=== PATIENT | female | born 1960 | race Caucasian/White ===

== ENCOUNTER → 2018-04-13 14:27 | Outpatient (CLI) | payer BC, SELFPAY ==
[2017-04-16 12:29] VITALS: BMI 30.7
[2018-04-18 10:06] LABS: HPV Reflexed? NOT INDICATED
--- OUTSIDE RECORDS SUMMARY | 2018-06-08 20:02 | XMS RPT_ITS ---
:1960 Author Organization [place] Care Team Providers Name Role Phone PARSBalwinder, MANSOUR A Attending Unavailable KAY GARNETT Referring Unavailable PARSI, MANSOUR A Referring Unavailable PARSI, MANSOUR A Attending Unavailable PARSI, MANSOUR A Referring Unavailable PARSI, MANSOUR A Admitting Unavailable PARSI, MANSOUR A Attending Unavailable MATHIEU CASTANEDA Attending Unavailable ANITA, MANSOUR A Referring Unavailable MATHIEU CASTANEDA Attending Unavailable MATHIEU CASTANEDA Referring Unavailable MATHIEU CASTANEDA Referring Unavailable ROLA WHELAN Attending Unavailable MATHIEU CASTANEDA Referring Unavailable MATHIEU CASTANEDA Referring Unavailable MATHIEU CASTANEDA Referring Unavailable MATHIEU CASTANEDA Referring Unavailable MATHIEU CASTANEDA Referring Unavailable EL GEETHA, MATHIEU M Admitting Unavailable EL GEETHA, MATHIEU M Attending Unavailable EL GEETHA, MATHIEU M Referring Unavailable KAYA DAVIS, MATHIEU M Attending Unavailable ROSAS WILKERSON Referring Unavailable Rosas Wilkerson Attending Unavailable Rosas Wilkerson Primary Care Unavailable Joseph Beltran Attending Unavailable Rosas Wilkerson Primary Care Unavailable Joseph Beltran Referring Unavailable SHELLIE VENTURA Attending Unavailable SHELLIE VENTURA Referring Unavailable Rosas Wilkerson Primary Care Unavailable SHELLIE VENTURA Consulting Unavailable Joseph Beltran Attending Unavailable Rosas Wilkerson Primary Care Unavailable Rafal Garnett Attending Unavailable PROBLEMS PROBLEMS DATE TYPE CONDITION / CODE ATTENDING STATUS SOURCE 11/01/2017 Active Acquired absence of KAYA DAVIS, Active [facility] stomach (part of) / [facility]ATHIEU [facility] Z90.3(ICD-10) [facility] 10/11/2017 Active Other acute KAYA DAVIS, Active [facility] postprocedural pain [facility]ATH[facility]U [facility] / G89.18(ICD-10) [facility] 09/20/2017 Active Encounter for other NA Active [facility] preprocedural [facility] Main examination / [facility] Z01.818(ICD-10) Repository 06/30/2017 Active Benign neoplasm of NA Active [facility] stomach / Clinic Main D13.1(ICD-10) [facility] 06/02/2017 Unknown R10.9 - Unspecified SHELLIE VENTURA Active [facility] abdominal pain / [facility] R10.9(ICD-10) Hospital Repository 06/02/2017 Unknown K29.70 - Gastritis, SHELLIE VENTURA Active [facility] unspecified, without Community bleeding / Hospital K29.70(ICD-10) Repository 05/20/2017 Admitting Unknown / Hero Garnett [facility] Medical diagnosis UNK(Unknown) [facility] Repository 05/19/2017 Unknown Z12.31 - Encounter Joseph Beltran Active [facility] for screening [facility] mammogram for Hospital malignant neoplasm Repository of breast / Z12.31(ICD-10) 05/04/2017 Unknown K85.90 - Acute Rosas Wilkerson Active [facility] pancreatitis without Community necrosis or Hospital infection, Repository unspecified / K85.90(ICD-10) PROCEDURES PROCEDURES No Procedure Records FoundRESULTS RESULTS PAP IG W/REFLEX HR Collected: 04/13/2018 Status: F Source: [facility] Order Comment: CYTOLOGY INFORMATION: - CLINICAL INFORMATION: POSTMENOPAUSAL - DATE LMP/MENOPAUSE: POST MENOPAUSE MENOPAUSE - COLLECTION VIAL: Thin Prep Vial - TUBER OPERATOR SOURCE: CERVICAL/ENDOCERVICAL - COLLECTION TECHNIQUE: BRUSH/SPATULA Specimen Comment: [id number] Specimen Comment: Source.............Cervix;Endocervix Specimen Comment: Other..............Post Menopausal Specimen Comment: No. of containers..01 ThinPrep Vial TYPE CODE TESTS RESULT OUT OF RANGE REFERENCE UNITS LAB L7400.0800 . Normal DIAGN Comment Result Comment: NEGATIVE FOR INTRAEPITHELIAL LESION AND MALIGNANCY. LAB L7400.0900 . Normal ADEQ Comment Result Comment: Satisfactory for evaluation. Endocervical and/or squamous metaplastic cells (endocervical component) are present. LAB L7400.1400 . Normal PERFORM Comment Result Comment: Siobhan Little, Mold Stamper (ASCP) LAB L7400.2575 . Normal TEST METHOD Comment Result Comment: This liquid based ThinPrep(R) pap test was screened with the use of an image guided system. LAB L7400.2600 . Normal . COMM LAB L7400.2700 . Normal PAPSMR Comment Result Comment: The Pap smear is a screening test designed to aid in the detection of premalignant and malignant conditions of the uterine cervix. It is not a diagnostic procedure and should not be used as the sole means of detecting cervical cancer. Both false-positive and false-negative reports do occur. LAB L7400.2800 . Normal HPV RFLX Comment Result Comment: The HPV DNA reflex criteria were not met with this specimen result therefore, no HPV testing was performed. Performed at: [address] [id number] Aircraft Refueler: Merly Self MD, Phone: [phone] Performed By: #### L7400.0357 #### [facility] (refer to report for specific site) refer to report for address and phone number PROGRESS Observed: 11/07/2017 Status: COMPLETED Source: [place] 9:22 AM [facility] REPOSITORY HNO ID: [id number] Author: Mathieu Davis Service: (none) Author Type: Physician Type: Progress Notes Filed: 11/07/2017 9:23 AM Note Text: Sarcoma Tumor Board Encounter Date of Tumor Board Presentation: 11/07/2017 Tumor Board Review Type: Sarcoma Post-Resection Margin Review Attendance/Disciplines: Orthopedic Surgery, Medical Oncology, Pediatric Oncology , Radiation Oncology, Radiology, Pathology and General Surgery Presenting Physician(s): Mathieu Abbott MD Age: [age] year old Primary Disease Site: Stomach Histology: Benign: Soft Tissue Deep to fascia NEURAL: Schwannoma (Benign Nerve Sheath Tumor) TNM Stage: NA Malignant Sarcoma Tumor Category: NA Margins: R0 (no residual tumor) Care Path Discussion: No Clinical Trial Discussion: No Management Discussion: 57 YO male s/p Laparoscopic partial gastrectomy with primary suture closure 2) Laparoscopic cholecystectomy 3) Intraoperative cholangiogram for stomach submucosal mass; final pathology: stomach schwannoma: nodule measures 0.4 cm from the inked line of resection. No necrosis is identified within the nodule. The nodule also measures 0.5 cm from the stomach mucosa and is not involving the mucosa or surrounding tissue. Plan: No further follow up indicated. Citations: NA This abstract and interpretation of the conversation at tumor board has been completed by Mathieu Davis MD. These are the general management options provided at tumor board conference. The definitive recommendations/discussion will be made by the primary health care team and patient after full discussion as appropriate. Please refer to individual notes by the treating physicians as a final plan of treatment. PROGRESS Observed: 11/01/2017 Status: COMPLETED Source: [place] 2:39 PM [facility] HNO ID: [id number] Author: Mathieu Davis Service: (none) Author Type: Physician Type: Progress Notes Filed: 11/01/2017 2:42 PM Note Text: Attending Note I evaluated the patient and personally participated in the trores components. I agree with the resident's findings and plan as documented and have discussed the case and management of the patient's care with the resident. Signature: Mathieu Davis MD Date: 11/01/2017 Time: 2:40 PM CNOV Observed: 11/01/2017 Status: COMPLETED Source: [place] 11:30 AM [facility] Office Visit (GENSMN) KLAUSSUDHIR ([id number]) 1960 F Date Time Provider Department 11/01/17 11:30 AM MATHIEU CASTANEDA During your visit today, we recorded the following information about you: Temperature Pulse Respiration Blood pressure 97.9 degrees 59/minute 12/minute 126/64 Weight Height 63.5 kg 1.499 m Jose Ramon Clarke 11/01/2017 11:02 AM Signed What is the reason for your visit today? Post op Who is your referring physician? Dr Kaya Davis Are you having poor oral intake? NO Have you had unintentional weight loss of 15 lbs/7 Kg in the last 3-6 months? NO Bowels: regular Wound: clean AND dry Temperature: No Drains: No Arnol Sanders MD 11/01/2017 2:42 PM Signed Surgery Progress note Sudhir Enrique [id number] ASSESSMENT and PLAN: Sudhir Enrique is s/p 1) Laparoscopic partial gastrectomy with primary suture closure 2) Laparoscopic cholecystectomy 3) Intraoperative cholangiogram for stomach submucosal mass -pathology: stomach schwannoma: nodule measures 0.4 cm from the inked line of resection. ?No necrosis is identified within the nodule. The nodule also measures 0.5 cm from the stomach mucosa and is not involving the mucosa or surrounding tissue. -overall doing well, expected post op course -Pain control: no pain -Diet: regular diet -follow up PRN S: INTERVAL HPI and PERTINENT ROS: Doing well. No pain, tolerating GIS diet. Normal BMs. O: BP 126/64 (BP Site: Left Arm, BP Position: Sitting, BP Cuff Size: Regular Adult) Pulse (!) 59 Temp 36.6 ?C (97.9 ?F) (Temporal Artery) Resp 12 Ht 149.9 cm (4' 11) Wt 63.5 kg (140 lb) BMI 28.28 kg/m? Gen: Alert, no NAD CV: RRR Resp: no respiratory distress/increased work of breathing Abdomen: Soft, nondistended, non tender Arnol Sanders MD General Surgery PGY4 Pager: [phone] On weekends, holidays and after hours please page General Surgery foundation relations manager: [phone] Mathieu Davis MD 11/01/2017 2:42 PM Signed Attending Note I evaluated the patient and personally participated in the torres components. I agree with the resident's findings and plan as documented and have discussed the case and management of the patient's care with the resident. Signature: Mathieu Davis MD Date: 11/01/2017 Time: 2:40 PM Referring Provider: ROSAS WILKERSON [[id number]] Allergies As of Date: 11/01/2017 (No Known Allergies) Date Reviewed: 11/01/2017 Reviewed by: Mathieu Davis - Fully Assessed Reason for Visit: Post Op [174] Visit Diagnosis:History of laparoscopic partial gastrectomy [Z90.3] Prescriptions as of 11/01/2017 Sig: OMEPRAZOLE MAGNESIUM 20 MG TA* Take 20 mg by mouth as needed. Problem List As Of Date 11/01/2017 Noted Resolved Abnormal mammogram [R92.8] INVALID FOR* Stomach tumor (benign) [D13.1] INVALID FOR*11/01/2017 Gastric mass [K31.9] INVALID FOR*11/01/2017 History of laparoscopic partial gastrectomy [Z9*INVALID FOR* Visit Notes: >> Jose Ramon Clarke [place] Nov 01, 2017 11:00 AM Status: Signed What is the reason for your visit today? Post op Who is your referring physician? Dr Kaya Davis Are you having poor oral intake? NO Have you had unintentional weight loss of 15 lbs/7 Kg in the last 3-6 months? NO Bowels: regular Wound: clean AND dry Temperature: No Drains: No Disposition: Return if symptoms worsen or fail to improve. Follow-up and Disposition History Recorded Letter Text Mathieu Davis MD [facility] November 01, 2017 RE: Sudhir Enrique TO WHOM IT MAY CONCERN: This is to certify that Sudhir Enrique has been under my care, and may return to work on 11/02/2017 with the following restrictions: no heavy lifting for 1 week. Sincerely yours, Arnol Sanders MD Encounter Status:Closed by MATHIEU CASTANEDA MD on 11/01/17 PROGRESS Observed: 11/01/2017 Status: COMPLETED Source: [place] 11:12 AM [facility] [place] REPOSITORY HNO ID: [id number] Author: Arnol Sanders Service: (none) Author Type: Resident Type: Progress Notes Filed: 11/01/2017 2:42 PM Note Text: Surgery Progress note Sudhir Enrique [id number] ASSESSMENT and PLAN: Sudhir Enrique is s/p 1) Laparoscopic partial gastrectomy with primary suture closure 2) Laparoscopic cholecystectomy 3) Intraoperative cholangiogram for stomach submucosal mass -pathology: stomach schwannoma: nodule measures 0.4 cm from the inked line of resection. ?No necrosis is identified within the nodule. The nodule also measures 0.5 cm from the stomach mucosa and is not involving the mucosa or surrounding tissue. -overall doing well, expected post op course -Pain control: no pain -Diet: regular diet -follow up PRN S: INTERVAL HPI and PERTINENT ROS: Doing well. No pain, tolerating GIS diet. Normal BMs. O: BP 126/64 (BP Site: Left Arm, BP Position: Sitting, BP Cuff Size: Regular Adult) Pulse (!) 59 Temp 36.6 ?C (97.9 ?F) (Temporal Artery) Resp 12 Ht 149.9 cm (4' 11) Wt 63.5 kg (140 lb) BMI 28.28 kg/m? Gen: Alert, no NAD CV: RRR Resp: no respiratory distress/increased work of breathing Abdomen: Soft, nondistended, non tender Arnol Sanders MD General Surgery PGY4 Pager: [phone] On weekends, holidays and after hours please page General Surgery foundation relations manager: [phone] CASE MGT INIT Observed: 10/12/2017 Status: COMPLETED Source: [facility] 2:17 PM [facility] [place] REPOSITORY HNO ID: [id number] Author: Maria Elena Greenberg (Sw) Service: Care Management Author Type: Product Engineer Type: Care Mgt Initial Assessment Filed: 10/12/2017 2:51 PM Note Text: CARE MANAGEMENT: ASSESSMENT AND DISCHARGE PLAN SERVICE DATE: 10/12/2017 SERVICE TIME: 9:45am PRIMARY CARE PHYSICIAN: Rosas Wilkerson MD ADMISSION STATUS: Inpatient 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 No Advance Directive: Health Literacy: 1. How often do you need to have someone help you when you read instructions, pamphlets, or other written material from your doctor or pharmacy? Never - 1 2. How confident are you filling out medical forms by yourself? Extremely - 1 If Patient scores > 3 on either question, the following interventions were put into place: Patient did not score > 3 FUNCTIONAL AND COGNITIVE/BEHAVIORAL PRIOR TO ADMISSION: Baseline Mental Status: Alert AND Oriented, Person, Place , Time and Situation Functional Status: Independent Does Patient Currently Receive Any Community Services or Home Care? None Equipment Prior to Admission: None Has the Patient Been in a Fdc Facility in the Past 30 days? No SOCIAL: Living Arrangement: Home Lives With: Spouse Financial Resources: N/A Primary Contact: Extended Emergency Contact Information Primary Emergency Contact: Andrew Enrique Address: [address] [place], [place] [id number] Mobile Relation: Spouse Supportive: Yes Other Important Patient Contacts: None Caregiver Assessment: Caregiver is ready, willing and able to meet the patient's needs as recommended by the inter-professional team? Yes Patient's transition needs and plan for meeting these needs: follow up appointments Does the patient have an acute stroke diagnosis, or has the patient had a stroke during this admission? No Medication Adherence: I am convinced of the importance of my prescription medication: Agree completely - 0 I worry that my prescription medication will do more harm than good to me Disagree completely - 0 I feel financially burdened by my [id number] expenses for my prescription medication: Disagree completely - 0 Patient is categorized as low risk < 2 Are you interested in bedside delivery of your medications? Yes Food Concerns: In the Last Month, Have You had Trouble Getting Food? No trouble getting food During the Last Month, Have You Worried Whether Your Food Would Run Out Before You Had Enough Money to Buy More? No Is the Patient Psychosocially Complex? No ASSESSMENT AND PLAN: Medical Needs: None Psychosocial Needs: None FREEDOM OF CHOICE EXPLAINED: Yes -discussed POTENTIAL TRANSITION PLANS Home 56 year old female s/p lap partial gastrectomy, cholecystectomy. Per medical team pt to be discharged home today. SIGNATURE: Maria Elena Elise MAMI Greenberg PATIENT NAME: Sudhir Enrique DATE: October 12, 2017 TIME: 2:47 PM PAGER/CONTACT #: [phone] CASE MANAGEM Observed: 10/12/2017 Status: COMPLETED Source: [place] 2:17 PM [facility] HNO ID: [id number] Author: Maria Elena Greenberg (Sw) Service: Care Management Author Type: Product Engineer Type: Care Mgt Progress Note Filed: 10/12/2017 4:13 PM Note Text: CARE MANAGEMENT DISCHARGE NOTE SERVICE DATE: 10/12/2017 SERVICE TIME: 1:00pm LOS: 1 day Admission Date: 10/11/2017 DISCHARGE ARRANGEMENT Home CAREGIVER ASSESSMENT: Caregiver is ready, willing and able to meet the patient's needs as recommended by the inter-professional team? No Caregiver Needed Patient's transition needs and plan for meeting these needs: follow up appointments Does the patient have an acute stroke diagnosis, or has the patient had a stroke during this admission? No HANDOFF COMMUNICATION: Medical Team TRANSPORTATION ARRANGEMENTS: Car -private vehicle Per medical team pt to be discharged today with no skilled needs, Home/Self-Care. SIGNATURE: Maria Elena GreenbergMAMI PATIENT NAME: Sudhir Enrique DATE: October 12, 2017 TIME: 4:11 PM PAGER/CONTACT #: [phone] PROGRESS Observed: 10/12/2017 Status: COMPLETED Source: [place] 11:39 AM [facility] HNO ID: [id number] Author: Maria A Santoyo Service: (none) Author Type: (none) Type: Progress Notes Filed: 10/12/2017 11:39 AM Note Text: Radiology Service Progress Note PATIENT NAME: Sudhir Enrique DATE OF SERVICE: October 12, 2017 TIME: 11:39 AM PATIENT IDENTITY VERIFICATION COMPLETED USING TWO (2) METHODS: Patient confirmed name verbally and Date of . PATIENT GENDER DATA: Female. status: : No status: N/A PATIENT RELEVANT IMPLANT DATA REVIEWED: Yes RADIOLOGY DEPARTMENT: General X-ray: Exam(s) Completed: GI/ Procedure(s): UGI with water soluable and barium contrasts PERIPHERAL IV DATA: Not applicable SIGNED BY: Maria A Santoyo October 12, 2017 11:39 AM XR UPPER GI SINGLE Observed: 10/12/2017 Status: F Source: [place] CONTRAST 11:38 AM [facility] * * *Final Report* * * DATE OF EXAM: Oct 12 2017 11:38AM [id number] [id number] - XR UPPER GI SINGLE CONTRAST / PROCEDURE REASON: Post-op followup * * * * Physician Interpretation * * * * UPPER GI HISTORY: Status post partial gastrectomy, resection of mass along the greater curve of the gastric antrum. COMPARISON: Outside MR 06/02/2017. TECHNIQUE: The patient ingested water-soluble contrast followed by low density barium under intermittent fluoroscopic monitoring. Contrast: ORAL: 50 ml of OMNIPAQUE 350 ORAL: 25 ml of EZPAQUE Fluoroscopy radiation summary: Fluoroscopy time: 2:12 (min:sec). Air kerma: 39.2 mGy. RESULT: Manager Strategic Development: No dilated bowel in the included field of view. Minimal pneumoperitoneum, likely expected postsurgically. Minimal mural irregularity along the greater curvature of the gastric antrum near expected resection site, likely postsurgical. Luminal contrast transits to the proximal jejunum without leak or obstruction. IMPRESSION: NO LEAK OR OBSTRUCTION. Polysomnographic Technologist: PSCB Transcribe Date/Time: Oct 12 2017 11:41A Dictated by : ERIC MCDONALD DO This examination was interpreted and the report reviewed and electronically signed by: ERIC MCDONALD DO on Oct 12 2017 11:49AM EST [id number] CONSULT PROG Observed: 10/12/2017 Status: COMPLETED Source: [place] 9:00 AM [facility] HNO ID: [id number] Author: Christina Bauer Service: Pain Management Author Type: Nurse Practitioner Type: Consult Progress Note Filed: 10/12/2017 11:49 AM Note Text: APMS PLAN OF CARE NOTE Primary Service: Colorectal This patient is S/P laparoscopic partial gastrectomy, primary suture closure, cholecystectomy with IOC whom had a single shot TAP block on DOS for post-operative pain control. She is doing well, has no complaints of pain. Has not needed her current analgesic regimen. APMS asked to reassess pt today. Neurological Status: Alert and oriented x 3 Residual postanesthetic sedation: arousable. Pain Scale: 0 Pain at surgical site? No Pain Character: denies Is patient satisfied with pain control? Yes Post Procedure Neuro examination: Sensory: Consistent with block/epidural:Yes Motor: Consistent with block/epidural: Yes Vital Signs at time of evaluation: BP 109/54 Pulse 61 Temp 36.7 ?C (98.1 ?F) (Oral) Resp 18 Ht 149.9 cm (4' 11.02) Wt 64.4 kg (142 lb) SpO2 99% BMI 28.66 kg/m? Post procedure Nausea/Vomiting absent PLAN: Pt denies any pain or discomfort. Consider adding Tylenol ATC once CMP results (possibly hemozyled). Continue Dilaudid 0.2 mg IV 4 hours PRN The plan was discussed in detail with patient +/- family, bedside RN, APMS staff and primary service, who expressed agreement, understanding and comfort with the plan. APMS will sign off and defer further management to primary team. If pain worsens or difficulties arise please reconsult APMS. Thank you for including us in her care. Name : Christina Bauer APRN.[facility] Acute Pain Service Pager [phone] October 12, 2017 0900 AM CNDS Observed: 10/12/2017 Status: COMPLETED Source: [place] 7:45 AM [facility] HNO ID: [id number] Author: Mathieu Davis Service: General Surgery Author Type: Physician Type: Discharge Summaries Filed: 10/13/2017 7:32 AM Note Text: DISCHARGE SUMMARY PATIENT NAME: Sudhir Enrique ADMISSION DATE: 10/11/2017 DISCHARGE DATE: 10/12/2017 Attending: Mathieu Davis Reason for Hospitalization: Active Problems: Gastric mass Resolved Problems: * No resolved hospital problems. * Operations During Hospitalization: Laparoscopic partial gastrectomy, cholecystectomy Procedures During Hospitalization: No procedures performed Hospital Course: The patient was admitted to the hospital 10/11/17 with a previous known diagnosis of a stomach GIST. Her case was discussed at tumor board and it was decided that her condition be managed operatively. The patient was then transferred to the OR and a laparoscopic partial gastrectomy and cholecystectomy was performed. Patient tolerated the procedure well and was transferred to the regular nursing floor. No complications were encountered. UGI was performed on POD # 1 which did not demonstrate leak or obstruction. Heparin was ordered for prophylaxis of deep vein thrombosis. Diet was advanced to full liquid diet. After toleration of a full liquid diet and adequate pain control, patient was discharged in a stable condition. Labs and Procedures Pending at Discharge: X-Ray Results (UGI) Patient Condition at Discharge: Stable Discharge Disposition: Home/Self Care Discharge Physical Exam: VITAL SIGNS: BP 100/57 Pulse 60 Temp 36.7 ?C (98.1 ?F) (Oral) Resp 16 Ht 149.9 cm (4' 11.02) Wt 64.4 kg (142 lb) SpO2 97% BMI 28.66 kg/m? GENERAL: Alert, no distress, cooperative SKIN: Positive findings: Scar: over surgical site LUNGS: Lungs clear to auscultation, Good diaphragmatic excursion CARDIAC: Normal S1 and S2; no rubs, murmurs, or gallops ABDOMEN: Abdomen soft, non-tender, BS normal, No masses or organomegaly INCISIONS: C/D/I Information Provided to Patient: Patient given copy of Discharge Instructions Discharge Medications:Current Discharge Medication List CONTINUE these medications which have NOT CHANGED Omeprazole Magnesium 20 mg Take 20 mg by mouth as needed. Follow up with Dr. Abbott in 2-3 weeks. SIGNATURE: Buck Victor PA-C PAGER: [phone] DATE: October 12, 2017 TIME: 7:45 AM Mathieu Davis MD PROGRESS Observed: 10/12/2017 Status: COMPLETED Source: [place] 6:12 AM [facility] ID: [id number] Author: Arnol Sanders Service: General Surgery Author Type: Resident Type: Progress Notes Filed: 10/12/2017 6:14 AM Note Text: Surgery Progress note Sudhir Enrique [id number] ASSESSMENT and PLAN: Sudhir Enrique is POD1 s/p lap partial gastrectomy, cholecystectomy -overall doing well, expected post op course -Pain control: adequate on current, transition to Po after swallow study -UGI today -Diet: NPO, to be advanced after UGI -Continue to encourage ambulation, activity, incentive spirometry -SCDs/SQH for DVT prophylaxis -no abx -no june S: INTERVAL HPI and PERTINENT ROS: No acute overnight events. AVSS. Pain controlled, no N/V. UOP adequate. No CP or SOB, fever, chills. O: BP 100/57 Pulse 60 Temp 36.7 ?C (98.1 ?F) (Oral) Resp 16 Ht 149.9 cm (4' 11.02) Wt 64.4 kg (142 lb) SpO2 97% BMI 28.66 kg/m? 10/10 2299 - 10/11 2258 In: 2918 [IV:2918] Out: 455 [Urine:405] Gen: Alert, no NAD CV: RRR Resp: no respiratory distress/increased work of breathing Abdomen: Soft, nondistended, appropriately tender. Incision dry clean intact without erythema, induration or drainage. LABS CBC, Coags, BMP, Mg, Phos Recent Labs 10/11/17 2344 WBC 9.66 HB 12.6 HCT 39.9 PLT 255 NA 140 K 4.6 CHLOR 104 CO2 21* BUN 10 CREAT 0.63 GLUC 138* CA 8.3* MG 1.9 P 3.2 Arnol Sanders MD General Surgery PGY4 Pager: [phone] On weekends, holidays and after hours please page General Surgery foundation relations manager: [phone] CBC AND DIFFERENTIAL Collected: 10/11/2017 Status: F Source: [facility] 11:44 PM [facility] REPOSITORY TYPE CODE TESTS RESULT OUT OF REFERENCE UNITS RANGE LAB WBC 3.70-11.00 k/uL WBC 9.66 LAB RBC 3.90-5.20 m/uL RBC 4.32 LAB HGB 11.5-15.5 g/dL Hemoglobin 12.6 LAB HCT 36.0-46.0 % Hematocrit 39.9 LAB MCV 80.0-100.0 fL MCV 92.4 LAB MCH 26.0-34.0 pG MCH 29.2 LAB MCHC 30.5-36.0 g/dL MCHC 31.6 LAB RDWCV 11.5-15.0 % RDW-CV 14.0 LAB PLTCT 150-400 k/uL Platelet Count 255 LAB MPV 9.0-12.7 fL MPV 9.9 LAB ANEUT % Neut% 89.9 LAB AANEUT 1.45-7.50 k/uL Abs Neut High 8.68 LAB ALYMP % Lymph% 6.4 LAB AALYMP 1.00-4.00 k/uL Low Abs Lymph 0.62 LAB AMONO % [place]% 3.6 LAB AAMONO <0.87 k/uL Abs [place] 0.35 LAB AEOS % Eosin% 0.0 LAB AAEOS <0.46 k/uL Abs Eosin <0.03 LAB ABASO % Baso% 0.1 LAB AABASO <0.11 k/uL Abs Baso <0.03 LAB AUNRBC 0 /100 WBC NRBCs 0.0 LAB ABNRBC <0.01 k/uL Absolute nRBC <0.01 LAB DTYP DTYPE Auto Diff Performed By: #### CBCDIF, CMP, MG1, PHOS #### [facility] [address] [place], [place] [address] COMP METABOLIC PANEL Collected: 10/11/2017 Status: F Source: [place] 11:44 PM [facility] REPOSITORY TYPE CODE TESTS RESULT OUT OF REFERENCE UNITS RANGE LAB TP 6.3-8.0 g/dL Protein, Total 7.3 LAB ALB 3.9-4.9 g/dL Albumin 3.9 LAB CA 8.5-10.2 mg/dL Low Calcium, Total 8.3 LAB TBIL 0.2-1.3 mg/dL Bilirubin, Total 0.5 LAB ALKP 32-117 U/L Alkaline Phosphatase 101 LAB AST 13-35 U/L AST High 140 Result Comment: Results may be falsely increased due to interference by hemolysis. Suggest reorder as clinically indicated. LAB GLU 74-99 mg/dL High Glucose 138 Result Comment: The [place] Diabetes [employer] (ADA) provides guidance for cutoff values for fasting glucose and random glucose. The ADA defines fasting as no caloric intake for at least 8 hours. Fas ting plasma glucose results between 100 to 125 mg/dL indicate increased risk for diabetes (prediabetes). Fasting plasma glucose results greater than or equal to 126 mg/dL meet the criteria for diagnosis of diabetes. In the absence of unequivocal hyperglycemia, results should be confirmed by repeat testing. In a patient with classic symptoms of hyperglycemia or hyperglycemic crisis, random plasma glucose results greater than or equal to 200 mg/dL meet the criteria for diagnosis of diabetes. Reference: Standards of Medical Care in Diabetes 2016, [place] [employer]. Diabetes Care. 2016.39(Suppl 1). LAB BUN 7-21 mg/dL BUN 10 LAB CRET 0.58-0.96 mg/dL Creatinine 0.63 LAB NA 136-144 mmol/L Sodium 140 LAB K 3.7-5.1 mmol/L Potassium 4.6 Result Comment: Results may be falsely increased due to interference by hemolysis. Suggest reorder as clinically indicated. LAB CL 97-105 mmol/L Chloride 104 LAB CO2 22-30 mmol/L Low CO2 21 LAB AGAP 9-18 mmol/L Anion Gap 15 LAB ALT 7-38 U/L ALT High 107 Result Comment: Results may be falsely increased due to interference by hemolysis. Suggest reorder as clinically indicated. LAB GFRAA eGFR- Amer. >60 LAB GFRNAA . eGFR-All Other Races >60 Result Comment: eGFR (Estimated GFR) Units of measure: mL/min/1.73 meters squared eGFR is derived from the reexpressed MDRD Study equation using the following parameters: serum creatinine, age, gender and race. The creatinine assay has been calibrated to be traceable to IDMS. An eGFR <60 mL/min/1.73m2 for >3 months is consistent with chronic kidney disease. Refer to KDOQI guidelines for clinical interpretation. In patients with unstable renal function, e.g. those with acute kidney injury, the eGFR may not accurately reflect actual GFR. Performed By: #### CBCDIF, CMP, MG1, PHOS #### [facility] [address] [place] [address] MAGNESIUM Collected: 10/11/2017 Status: F Source: [place] 11:44 [facility] REPOSITORY TYPE CODE TESTS RESULT OUT OF REFERENCE UNITS RANGE LAB MG 1.7-2.3 mg/dL Magnesium 1.9 Result Comment: Results may be falsely increased due to interference by hemolysis. Suggest reorder as clinically indicated. Performed By: #### CBCDIF, CMP, MG1, PHOS #### [facility] [address] [place] [id number] PHOSPHORUS Collected: 10/11/2017 Status: F Source: [place] 11:44 PM [facility] REPOSITORY TYPE CODE TESTS RESULT OUT OF REFERENCE UNITS RANGE LAB PHOS 2.7-4.8 mg/dL Phosphorus 3.2 Result Comment: Results may be falsely increased due to interference by hemolysis. Suggest reorder as clinically indicated. Performed By: #### CBCDIF, CMP, MG1, PHOS #### [facility] [address] [place], [place] [address] OPERATIVE NO Observed: 10/11/2017 Status: COMPLETED Source: [place] 6:16 PM [facility] REPOSITORY HNO ID: [id number] Author: Mathieu Davis Service: General Surgery Author Type: Physician Type: Operative Report Filed: 10/13/2017 3:40 PM Note Text: [facility] OPERATIVE REPORT NAME: Sudhir Enrique [facility] #: [id number] DATE: 10/11/2017 AGE:[age] year old Incision/Procedure Start Time: 1:39 PM Incision Close/Procedure End Time: 4:18PM Duration of case: 2 hours 37 minutes SURGEON 1: Mathieu Davis MD PARKING PATROLLER 1: Arnol Sanders MD PARKING PATROLLER 2: Morgan Rahman MD OPERATION: 1) Laparoscopic partial gastrectomy with primary suture closure 2) Laparoscopic cholecystectomy 3) Intraoperative cholangiogram ANESTHESIA: General with endotracheal anesthesia PREOPERATIVE DIAGNOSIS: 1. Gastrointestinal stromal tumor of the stomach 2. History of gallstone pancreatitis POSTOPERATIVE DIAGNOSIS: 1. Gastrointestinal stromal tumor of the stomach 2. History of gallstone pancreatitis OPERATIVE INDICATIONS: Sudhir Enrique is a 56 year old female with an incidental GI stromal tumor found in the course of her workup for gallstone pancreatitis. She is otherwise asymptomatic. OPERATIVE FINDINGS: Large exophytic gastric mass along the anterior greater curvature. Evidence of chronic cholecystitis, normal intraoperative cholangiogram. OPERATIVE PROCEDURE: The patient was brought to the operating room and a huddle was performed confirming the appropriate patient, position, operation, antibiotics, allergies and equipment necessary. Anesthesia placed appropriate IV and arterial access and the patient was intubated and general endotracheal anesthesia was induced. SCDs were placed on bilateral calves and the pump turned on. The abdomen was prepped and draped in the usual sterile fashion from xiphoid process to pubic symphysis. A time out was performed which again confirmed the appropriate patient, position, operation, antibiotics, allergies and equipment necessary. Preoperative antibiotics were adminstered within one hour of incision and redosed appropriately. An off midline optiview 5mm port was placed. Pneumoperitoneum was established and 3 additional 5mm trocars and one 12mm trocar were placed. A large gastric exophytic mass was seen on entry to the abdomen. An attempt was made to staple this mass off at the base, however, this would have clearly narrowed the stomach at the level of the incisura and we abandoned a stapled approach. Therefore, we elected to use the ligasure device to core out the gastric mass along its outline including a normal rim of stomach. The lesser sac was entered to expose the posterior surface of the stomach and facilitate removal of the mass. Once removed, the mass was transferred intact into an endocatch bag and removed at the end of the case. There was no spillage. The 7cm gastrotomy was closed transversely with two 3-0 V-lock running sutures. Two imbricating lemberts were placed to invert mucosa at the distal corner of the suture line with 2-0 polysorb sutures. On endoscopy, the scope passed through freely and there was no obstruction. An intraoperative leak test was negative. We turned our attention to the gallbladder. The gallbladder was retracted towards the right upper quadrant. The peritoneum overlying Calot's triangle was carefully dissected using a combination of hook electrocautery and careful blunt dissection. The cystic duct and cystic artery were identified and individually dissected in a plane parallel to the structures. The critical view was achieved. The artery was then divided between clips (1 on the specimen side and 2 on the retained side). The cyst duct was ligated and divided in a similar fashion after a cholangiogram intraoperatively revealed patent CBD and bilateral hepatic ducts without extravasation. The gallbladder was then dissected from the liver bed using hook electrocautery. There was bile spillage inherent to the procedure without clinical significance with minimal blood loss. Hemostasis was achieved. The specimen was placed in an endocatch bag and retrieved. Gallbladder fossa was carefully inspected and did not demonstrate any bile leakage. The gallbladder fossa was irrigated with saline. Ports were removed under direct vision. The 12mm trocar site was closed at the fascial level with 2-0 Maaxon and the skin was closed with 3-0 Biosyn. Sureclose was applied. At the end of the case, all instrument, needle, and sponge counts were correct and the patient was returned to the PACU after being extubated and the june removed. EBL: 50cc SPECIMENS: Specimen ID Type Site Comments Sent To path #1 Tissue gallbladder Pathology Routine path 2 Tissue GIST Pathology Routine COMPLICATIONS: none DRAINS: none Dr. Abbott was present and performed the entirety of the surgery with assistance of Dr. Rahman, who was requested due to lack of qualified residents. Arnol Sanders MD on behalf of MD Mathieu Angelo MD ANES POST Observed: 10/11/2017 Status: COMPLETED Source: [place] 5:43 PM [facility] REPOSITORY HNO ID: [id number] Author: Ketty Tijerina Service: Anesthesiology Author Type: Anesthesiologist Type: Anesthesia PostOp Filed: 10/11/2017 5:44 PM Note Text: POST ANESTHESIA EVALUATION NOTE SERVICE DATE: 10/11/2017 SERVICE TIME: current : 1960 Vitals: 10/11/17 1035 10/11/17 165 Temp: 37.2 ?C (99 ?F) 36.8 ?C (98.2 ?F) 10/11/17165510/11/17 17010/11/17 17110/11/17 1730 BP: 110/56 108/57 107/61 104/65 10/11/17 16510/11/17 17010/11/17 17110/11/17 1730 Pulse: 91 79 74 68 10/11/17 16510/11/17 1705 10/11/17 1715 10/11/17 1730 Resp: 16 16 14 16 10/11/17165510/11/17 17010/11/17 17110/11/17 1730 SpO2: 98% 98% 99% 98% Validated Vital Signs: Yes POST ANES STATUS: No apparent anesthetic complications. The patient is appropriately hydrated with stable respiratory and cardiovascular status. Patient has safe and adequate airway control. The patient has appropriate pain relief and no significant post operative nausea or vomiting. The patient has achieved baseline mental status. Further assessment by Anesthesia Service: None Other Remarks: SIGNATURE: Ketty Tijerina MD PATIENT NAME: Sudhir Enrique DATE: October 11, 2017 TIME: 5:44 PM PAGER/CONTACT #: [phone] BRIEF OP NOT Observed: 10/11/2017 Status: COMPLETED Source: [place] 4:16 PM [facility] RE[facility]IT[facility] HNO ID: [id number] Author: Arnol Sanders Service: General Surgery Author Type: Resident Type: Brief Op Note Filed: 10/11/2017 4:18 PM Note Text: BRIEF OP NOTE LOG ID: [id number] Surgery/Procedure Date: 10/11/2017 Incision/Procedure Start Time: 1:39 PM Incision Close/Procedure End Time: Surgeon(s)/Proceduralist(s) and Sand Screener(s): Surgeon(s) and Role: * Mathieu Davis - Primary * Farida Rahman (Fel) - Fellow * Arnol Sanders - Resident - Assisting Procedure(s): laparoscopic partial gastrectomy, primary suture closure, cholecystectomy with IOC Anesthesia: General Findings: exophytic mass distal greater curvature of the stomach, removed intact Estimated Blood Loss: 50 mls Specimens: Specimen ID Type Site Comments Sent To path #1 Tissue gallbladder Pathology Routine path 2 Tissue GIST Pathology Routine Complications: None Pre-Op/Pre-Procedure Diagnosis: gastric mass Post-Op/Post-Procedure Diagnosis: same SIGNATURE: Arnol Sanders MD PATIENT NAME: Sudhir Enrique DATE: October 11, 2017 TIME: 4:16 PM PAGER/CONTACT #: [phone] CHOLANGIOGRAM INTRAOP Observed: 10/11/2017 Status: F Source: [place] 3:55 PM [facility] RE[facility]ITORY * * *Final Report* * * DATE OF EXAM: Oct 11 2017 3:55PM ESX [id number] - XR CHOLANGIOGRAM INTRAOP / PROCEDURE REASON: CLARISSE * * * * Physician Interpretation * * * * INTRAOPERATIVE CHOLANGIOGRAM HISTORY: Recent cholecystectomy. TECHNIQUE: 2 images are submitted for interpretation. The procedure was performed by the referring surgical service. Fluoroscopy radiation summary: Fluoroscopy time: 0:12 (min:sec). Air kerma: 4.8 mGy. RESULT: See impression. IMPRESSION: Contrast opacifies normal caliber intra-/extrahepatic bile ducts. No stricture or filling defect in the opacified bile ducts. Contrast opacifies the second duodenum. Polysomnographic Technologist: PSCB Transcribe Date/Time: Oct 12 2017 8:12A Dictated by : ERIC MCDONALD DO This examination was interpreted and the report reviewed and electronically signed by: ERIC MCDONALD DO on Oct 12 2017 10:05AM EST [id number] CONFIRM BLOOD TYPE Collected: 10/11/2017 Status: F Source: [place] 1:18 PM [facility] REPOSITORY TYPE CODE TESTS RESULT OUT OF REFERENCE UNITS RANGE LAB %ABR A ABO/RH(D) POSITIVE Performed By: #### CONABO #### [facility] [address] [place], [place] [address] PT ED Observed: 10/11/2017 Status: COMPLETED Source: [place] 10:51 AM [facility] REPOSITORY HNO ID: [id number] Author: Faby (Rn) SHANE Noel Service: Nursing Author Type: Registered Nurse Type: Patient Education Filed: 10/11/2017 10:51 AM Note Text: PRE OP LEARNING ASSESSMENT PROCEDURE/SURGERY: SURGERY: pre-op logistics READINESS TO LEARN COGNITIVE ABILITY: Alert and oriented MOTIVATION TO LEARN: Eager FAMILY SUPPORT: High - Very involved in pt care PATIENT LEARNS BEST BY: Individual Instruction FACTORS AFFECTING LEARNING: None PHYSICAL LIMITATIONS AFFECTING LEARNING: None Electronically Signed By: Faby Noel RN In Department: [place] [address] SURGICAL PATHOLOGY Observed: 10/11/2017 Status: F Source: [place] 12:00 AM [facility] REPOSITORY Specimen originated from [facility] Specimen #: [id number] Submitting Physician: MATHIEU ABBOTT MD FINAL DIAGNOSIS 1. Gallbladder, cholecystectomy (A) - Chronic cholecystitis. - Cholelithiasis. 2. Stomach with Gastrointestinal stromal tumor, excision (B) Segment of stomach with Schwannoma. - Six benign reactive lymph nodes, negative for tumor. - See comment. MALCOM/peter/10/14/17 COMMENT 2. Segment of stomach demonstrates involvement of the muscularis propria and subserosal adipose tissue by a spindle cell proliferation. There is a lymphoid cuff seen in multiple areas surrounding the spindle cell lesion which would favor a schwannoma over a gastrointestinal stroma tumor. Immunohistochemical stains were performed on block B2. The spindle cell proliferation was strongly and diffusely positive for S100 and SOX10 but negative for DOG1, CKit, CD34, and SMA. Laboratory Developed Test (LDT) Disclaimer: Positive and negative controls stain appropriately. Performance characteristics of immunohistochemical, immunofluorescent and chromogenic in-situ hybridization tests have been determined by [facility] [place] ([facility]) in a manner consistent with CLIA requirements. One or more of these tests have not been cleared or approved by the FDA. [facility] is regulated under CLIA as qualified to perform high-complexity testing. These tests are used for clinical purposes. They should not be regarded as investigational or for research. Yayo Riddle M.D., Ph.D. (Electronic Signature) SPECIMEN SUBMITTED A: GALLBLADDER B: GASTROINTESTINAL STROMAL TUMOR CLINICAL DATA GIST GROSS DESCRIPTION A. Received in formalin labeled gallbladder is a gallbladder measuring 4.5 x 2.5 x 1.2 cm. The serosal aspect is conn-loera, smooth and glistening. Perforations are not identified. The lumen contains thick green-brown bile. The wall of the gallbladder averages 0.2 cm in average thickness. Several yellow microcalculi are identified measuring 1 mm in maximum dimensions. There is no calculus impacting the cystic duct. The mucosa is bile stained with longitudinally oriented yellow streaks more prominent on the summit of the mucosal ridges. Electrical Engineering Designer sections are included in one cassette. IP/wlz 10/12/2017 B. Received in formalin labeled GIST is a segment of stomach with adipose tissue and underlying nodule measuring 11.5 x 6.0 x 4.0 cm overall. The elliptical segment of stomach mucosa measures 6.4 x 3.0 cm. The attached adipose tissue measures 5.0 x 4.0 x 1.0 cm. The underlying nodule measures 6.2 x 6.0 x 5.0 cm. The stomach mucosa is loera-brown with normal distribution of regal folds. No lesions are identified on the mucosal surface. The sectioning of the nodule reveals a well-encapsulated, loera-white, rubbery bulging cut surface. The nodule measures 0.4 cm from the inked line of resection. No necrosis is identified within the nodule. The nodule also measures 0.5 cm from the stomach mucosa and is not involving the mucosa or surrounding tissue. Sectioning through the attached fat reveals 9 possible nodules resembling lymph nodes ranging in greatest dimension from 0.1-0.3cm. A photograph of the specimen is taken. Electrical Engineering Designer sections are submitted as follows: B1-B2 nodule with inked line of resection and stomach mucosa, B4-B7 pharmaceutical service representative sections of nodule, B8 six possible lymph nodes, B9 3 possible lymph nodes. GUNSTOCK SPRAY UNIT FEEDER/wlz 10/12/2017 Gross examination performed at [facility], [address] [place] [address] Date of Report: 10/14/2017 Date of Procedure: 10/11/2017 Date of Receipt: 10/11/2017 Submitted by: MATHIEU ABBOTT MD Location: [facility] Diagnostic interpretation performed at [place] [address]. PROGRESS Observed: 09/20/2017 Status: COMPLETED Source: [place] 3:04 PM [facility] RE[facility]IT[facility] HNO ID: [id number] Author: Mathieu Castaneda Service: (none) Author Type: Physician Type: Progress Notes Filed: 09/20/2017 3:07 PM Note Text: This office note has been dictated. Mathieu Davis MD Attending Note I evaluated the patient and personally participated in the torres components. I agree with the resident's findings and plan as documented and have discussed the case and management of the patient's care with the resident. Signature: Mathieu Davis MD Date: 09/20/2017 Time: 3:05 PM PROGRESS Observed: 09/20/2017 Status: COMPLETED Source: [place] 1:58 PM [facility] RE[facility]IT[facility] HNO ID: [id number] Author: Rola Whelan Service: (none) Author Type: Psychologist Type: Progress Notes Filed: 09/20/2017 1:59 PM Note Text: [facility] [place] Name: Sudhir Enrique MR#: [id number] Date: 09/20/17 Time: 3/4 hour Referred by: Dr. Abbott Reason for Referral: address psychological factors as they can affect post-operative recovery. Information relayed back to referral source via electronic medical record Her chart was reviewed and she gave her own history. She was seen with her . She says she is looking forward to getting her surgery over with and has used her tom to cope with the stress of waiting. The basic underlying psychological and physiological mechanisms behind the brain body connection were explained. She was introduced to the concepts and techniques that she can employ to help with pain and healing after surgery. She was given the link to the Behavioral Medicine Program website, instructed on the use of the relaxation recordings, and told of the informational content. She was given the opportunity to ask questions and informed that she could be seen again as an in-patient or in the outpatient clinic. Rola Dunlap, Ph.D. CBC AND DIFFERENTIAL Collected: 09/20/2017 Status: F Source: [place] 10:59 AM [facility] REPOSITORY TYPE CODE TESTS RESULT OUT OF REFERENCE UNITS RANGE LAB WBC 3.70-11.00 k/uL WBC 5.88 LAB RBC 3.90-5.20 m/uL RBC 4.90 LAB HGB 11.5-15.5 g/dL Hemoglobin 14.2 LAB HCT 36.0-46.0 % Hematocrit 44.9 LAB MCV 80.0-100.0 fL MCV 91.6 LAB MCH 26.0-34.0 pG MCH 29.0 LAB MCHC 30.5-36.0 g/dL MCHC 31.6 LAB RDWCV 11.5-15.0 % RDW-CV 13.7 LAB PLTCT 150-400 k/uL Platelet High Count 404 LAB MPV 9.0-12.7 fL MPV 9.8 LAB ANEUT % Neut% 59.3 LAB AANEUT 1.45-7.50 k/uL Abs Neut 3.48 LAB ALYMP % Lymph% 30.1 LAB AALYMP 1.00-4.00 k/uL Abs Lymph 1.77 LAB AMONO % [place]% 8.0 LAB AAMONO <0.87 k/uL Abs [place] 0.47 LAB AEOS % Eosin% 1.4 LAB AAEOS <0.46 k/uL Abs Eosin 0.08 LAB ABASO % Baso% 1.2 LAB AABASO <0.11 k/uL Abs Baso 0.07 LAB AUNRBC 0 /100 WBC NRBCs 0.0 LAB ABNRBC <0.01 k/uL Absolute nRBC <0.01 LAB DTYP DTYPE Auto Diff Performed By: #### CBCDIF, CMP #### [facility] [address] [place] [id number] COMP METABOLIC PANEL Collected: 09/20/2017 Status: F Source: [place] 10:59 AM [facility] REPOSITORY TYPE CODE TESTS RESULT OUT OF REFERENCE UNITS RANGE LAB TP 6.3-8.0 g/dL Protein, High Total 8.1 LAB ALB 3.9-4.9 g/dL Albumin 4.5 LAB CA 8.5-10.2 mg/dL Calcium, Total 9.8 LAB TBIL 0.2-1.3 mg/dL Bilirubin, Total 0.4 LAB ALKP 32-117 U/L Alkaline Phosphatase 113 LAB AST 13-35 U/L AST 23 LAB GLU 74-99 mg/dL Glucose 98 Result Comment: The [place] Diabetes [employer] (ADA) provides guidance for cutoff values for fasting glucose and random glucose. The ADA defines fasting as no caloric intake for at least 8 hours. Fas ting plasma glucose results between 100 to 125 mg/dL indicate increased risk for diabetes (prediabetes). Fasting plasma glucose results greater than or equal to 126 mg/dL meet the criteria for diagnosis of diabetes. In the absence of unequivocal hyperglycemia, results should be confirmed by repeat testing. In a patient with classic symptoms of hyperglycemia or hyperglycemic crisis, random plasma glucose results greater than or equal to 200 mg/dL meet the criteria for diagnosis of diabetes. Reference: Standards of Medical Care in Diabetes 2016, [place] [employer]. Diabetes Care. 2016.39(Suppl 1). LAB BUN 7-21 mg/dL BUN 18 LAB CRET 0.58-0.96 mg/dL Creatinine 0.76 LAB NA 136-144 mmol/L Sodium 141 LAB K 3.7-5.1 mmol/L Potassium 4.2 LAB CL 97-105 mmol/L Chloride 102 LAB CO2 22-30 mmol/L CO2 29 LAB AGAP 9-18 mmol/L Anion Gap 10 LAB ALT 7-38 U/L ALT 27 LAB GFRAA eGFR- Amer. >60 LAB GFRNAA . eGFR-All Other Races >60 Result Comment: eGFR (Estimated GFR) Units of measure: mL/min/1.73 meters squared eGFR is derived from the reexpressed MDRD Study equation using the following parameters: serum creatinine, age, gender and race. The creatinine assay has been calibrated to be traceable to IDDC. An eGFR <60 mL/min/1.73m2 for >3 months is consistent with chronic kidney disease. Refer to KDOQI guidelines for clinical interpretation. In patients with unstable renal function, e.g. those with acute kidney injury, the eGFR may not accurately reflect actual GFR. Performed By: #### CBCDIF, CMP #### [facility] [address] [place], [place] [address] TYPE AND SCR (30D) Collected: 09/20/2017 Status: F Source: [place] 10:59 AM [facility] TYPE CODE TESTS RESULT OUT OF REFERENCE UNITS RANGE LAB %ABR A ABO/RH(D) POSITIVE LAB % Antibody NEG Screen Performed By: #### [id number] #### [facility] [address] [place], [place] [address] XR CHEST 2V FRONTAL/LAT Observed: 09/20/2017 Status: F Source: [place] 10:44 AM [facility] * * *Final Report* * * DATE OF EXAM: Sep 20 2017 10:44AM AOX [id number] - XR CHEST 2V FRONTAL/LAT / PROCEDURE REASON: Encounter for other preprocedural examination * * * * Physician Interpretation * * * * EXAMINATION: CHEST RADIOGRAPH (2 VIEW FRONTAL and LATERAL) Clinical History: Encounter for other preprocedural examination MQ: XC2_5 Comparison: None RESULT: Lines, tubes, and devices: None. Lungs and pleura: There is somewhat low lung volume with mild atelectatic changes along the medial aspect of the bases. Prominence of the lung markings in the perihilar and basilar regions is likely secondary to crowded vessels, given the low lung volume. This could limit the evaluation for subtle interstitial or bronchial abnormalities, especially in the medial aspect of the bases. No pleural effusion or pneumothorax.. Cardiomediastinal silhouette: Heart is within normal. Thoracic aorta is mildly tortuous. Other: . IMPRESSION: As above Polysomnographic Technologist: CHRIS Transcribe Date/Time: Sep 20 2017 6:35P Dictated by : MAT MORRIS MD This examination was interpreted and the report reviewed and electronically signed by: MAT MORRIS MD on Sep 20 2017 6:35PM EST [id number] CNOV Observed: 09/20/2017 Status: COMPLETED Source: [place] 10:00 AM [facility] Office Visit ([facility]) SUDHIR ENRIQUE ([id number]) 1960 F Date Time Provider Department 09/20/17 10:00 AM ROLA WHELAN During your visit today, we recorded the following information about you: Rola Whelan 09/20/2017 1:59 PM Signed [facility] [place] Name: Sudhir Enrique MR#: [id number] Date: 09/20/17 Time: 3/4 hour Referred by: Dr. Abbott Reason for Referral: address psychological factors as they can affect post-operative recovery. Information relayed back to referral source via electronic medical record Her chart was reviewed and she gave her own history. She was seen with her . She says she is looking forward to getting her surgery over with and has used her tom to cope with the stress of waiting. The basic underlying psychological and physiological mechanisms behind the brain body connection were explained. She was introduced to the concepts and techniques that she can employ to help with pain and healing after surgery. She was given the link to the Behavioral Medicine Program website, instructed on the use of the relaxation recordings, and told of the informational content. She was given the opportunity to ask questions and informed that she could be seen again as an in-patient or in the outpatient clinic. Rola Dunlap, Ph.D. 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] INVALID FOR* Encounter Status:Closed by ROLA WHELAN PHD on 09/20/17 HISTORY PHYSICAL Observed: 09/20/2017 Status: COMPLETED Source: [place] 9:01 AM [facility] [place] REPOSITORY HNO ID: [id number] Author: Eric Franco (Res) Service: (none) Author Type: Resident Type: HANDP Filed: 09/20/2017 9:05 AM Note Text: HISTORY AND PHYSICAL EXAMINATION SERVICE DATE: 09/20/2017 SERVICE TIME: 9:02 AM PRIMARY CARE PHYSICIAN: Rosas Wilkerson REASON FOR VISIT Sudhir Enrique is a 56 year old female who is being seen for pre op visit The patient has the following: ACTIVE PROBLEM LIST Abnormal Mammogram Stomach Tumor (Benign) SUBJECTIVE: 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 No pain. No vomiting. No bloody BMs/melena. FUNCTIONAL STATUS: Run a short distance (8.00 METs) PAST MEDICAL HISTORY Diagnosis Date - History of esophagogastroduodenoscopy (EGD) 05/20/2017 - History of MRI 06/02/2017 abdominal MRI - NEGATIVE MEDICAL HISTORY - Pancreatitis 04/2017 attributed to gallstones PAST SURGICAL HISTORY Procedure Laterality Date - NONE FAMILY HISTORY Problem Relation Age of Onset - Breast Cancer Mother - Heart Maternal Grandfather - Heart Paternal Grandmother - Stroke Father SOCIAL HISTORY: Social History Substance Use Topics - Smoking status: Never Smoker - Smokeless tobacco: Never Used - Alcohol use No MEDICATIONS Prior to Admission medications as of 09/20/17 0901 Medication Sig Last Dose Taking Omeprazole Magnesium (PRILOSEC OTC) 20 mg tablet Take 20 mg by mouth as needed. Yes No medication comments found. CURRENT ALLERGIES ALLERGIES No Known Allergies REVIEW OF SYSTEMS PAIN ASSESSMENT: General: No weight loss, malaise or fevers. Neuro: negative Respiratory: No history of current cough or dyspnea, or pneumonia in the past 6 weeks. No history of respiratory/pulmonary symptoms or problems Cardiovascular: No history of HTN requiring medication, no history of angina, CHF, SC, cardiac surgery or stents. Denies rest pain, gangrene or revascularization/amputation for PVD. No history of cardiovascular symptoms or problems. GI: See HPI : No history of UTI in past 6 weeks. No history of renal failure. Not currently on or requiring dialysis. No history of symptoms or problems. 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 Has not taken steroids within the past 30 days. No history of endocrinological symptoms or problems. Hematology: No history of bleeding or clotting disorder. Pt is not taking anti-coagulation or platelet medications. No history of hematological symptoms or problems. Oncology: No history of CA metastasis, chemo within 30 days, or radiotherapy within 90 days. Has not lost 10% of body wt in 6 months. No history of oncological symptoms or problems. Psych: No history of psychiatric symptoms or problems. PHYSICAL EXAM BP 124/72 Pulse 60 Temp (Src) 98.2 (Temporal Artery) Resp 18 Ht 4' 11 (1.50m) Wt 142 lb (64.4kg) BMI 28.67 kg/(m2). General: Alert and oriented Cardiovascular: Normal S1 AND S2, no rubs, murmurs or gallops. No JVD. Pulse regular. Lungs: Normal breath sounds, no wheezes or crackles. Abdomen: Soft, non-tender, no rigidity. Extremities: No deformity, no edema or tenderness, no joint swelling or clubbing. Neurological: Normal cognition and motor skills. Diagnostic tests reviewed for today's visit: Most recent labs Most recent imaging ASSESSMENT 56yo female with incidentally diagnosed gastric GIST and Hx gallstone pancreatitis There is no known pertinent medical condition which may affect valerie-operative course PLAN: Lap GIST excision and lap clarisse + IOC Pre-op labs Consented Eric Franco MD CNOV Observed: 09/20/2017 Status: COMPLETED Source: [place] 8:30 AM [facility] SUDHIR ENRIQUE ([id number]) 1960 F Date Time Provider Department 09/20/17 8:30 AM MATHIEU CASTANEDA During your visit today, we recorded the following information about you: Temperature Pulse Respiration Blood pressure 98.2 degrees 60/minute 18/minute 124/72 Weight Height 64.4 kg 1.499 m Marlon Wilder ([place]), [place] 09/20/2017 8:25 AM Signed What is the reason for your visit today? Pre op Who is your referring physician? Dr kaya davis Are you having poor oral intake? NO Have you had unintentional weight loss of 15 lbs/7 Kg in the last 3-6 months? 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 No pain. No vomiting. No bloody BMs/melena. FUNCTIONAL STATUS: Run a short distance (8.00 METs) PAST MEDICAL HISTORY Diagnosis Date - History of esophagogastroduodenoscopy (EGD) 05/20/2017 - History of MRI 06/02/2017 abdominal MRI - NEGATIVE MEDICAL HISTORY - Pancreatitis 04/2017 attributed to gallstones PAST SURGICAL HISTORY Procedure Laterality Date - NONE FAMILY HISTORY Problem Relation Age of Onset - Breast Cancer Mother - Heart Maternal Grandfather - Heart Paternal Grandmother - Stroke Father SOCIAL HISTORY: Social History Substance Use Topics - Smoking status: Never Smoker - Smokeless tobacco: Never Used - Alcohol use No MEDICATIONS Prior to Admission medications as of 09/20/17 0901 Medication Sig Last Dose Taking Omeprazole Magnesium (PRILOSEC OTC) 20 mg tablet Take 20 mg by mouth as needed. Yes No medication comments found. CURRENT ALLERGIES ALLERGIES No Known Allergies REVIEW OF SYSTEMS PAIN ASSESSMENT: General: No weight loss, malaise or fevers. Neuro: negative Respiratory: No history of current cough or dyspnea, or pneumonia in the past 6 weeks. No history of respiratory/pulmonary symptoms or problems Cardiovascular: No history of HTN requiring medication, no history of angina, CHF, SC, cardiac surgery or stents. Denies rest pain, gangrene or revascularization/amputation for PVD. No history of cardiovascular symptoms or problems. GI: See HPI : No history of UTI in past 6 weeks. No history of renal failure. Not currently on or requiring dialysis. No history of symptoms or problems. 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 Has not taken steroids within the past 30 days. No history of endocrinological symptoms or problems. Hematology: No history of bleeding or clotting disorder. Pt is not taking anti-coagulation or platelet medications. No history of hematological symptoms or problems. Oncology: No history of CA metastasis, chemo within 30 days, or radiotherapy within 90 days. Has not lost 10% of body wt in 6 months. No history of oncological symptoms or problems. Psych: No history of psychiatric symptoms or problems. PHYSICAL EXAM BP 124/72 Pulse 60 Temp (Src) 98.2 (Temporal Artery) Resp 18 Ht 4' 11 (1.50m) Wt 142 lb (64.4kg) BMI 28.67 kg/(m2). General: Alert and oriented Cardiovascular: Normal S1 AND S2, no rubs, murmurs or gallops. No JVD. Pulse regular. Lungs: Normal breath sounds, no wheezes or crackles. Abdomen: Soft, non-tender, no rigidity. Extremities: No deformity, no edema or tenderness, no joint swelling or clubbing. Neurological: Normal cognition and motor skills. Diagnostic tests reviewed for today's visit: Most recent labs Most recent imaging ASSESSMENT 56yo female with incidentally diagnosed gastric GIST and Hx gallstone pancreatitis There is no known pertinent medical condition which may affect valerie-operative course PLAN: Lap GIST excision and lap clarsise + IOC Pre-op labs Consented MD Kaya Tapia Kevin M 09/20/2017 3:07 PM Signed This office note has been dictated. Mathieu Davis MD Attending Note I evaluated the patient and personally participated in the torres components. I agree with the resident's findings and plan as documented and have discussed the case and management of the patient's care with the resident. 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] INVALID FOR* Visit Notes: >> Marlon Wilder ([place] September 20, 2017 8:24 AM Status: Signed What is the reason for your visit today? Pre op Who is your referring physician? Dr kaya davis Are you having poor oral intake? NO Have you had unintentional weight loss of 15 lbs/7 Kg in the last 3-6 months? NO Bowels: regular Wound: clean AND dry Temperature: no Drains: No Disposition: Return in about 4 weeks (around 10/18/2017). Follow-up and Disposition History Recorded Encounter Status:Closed by MATHIEU CASTANEDA MD on 09/20/17 PROGRESS Observed: 09/20/2017 Status: COMPLETED Source: [place] 12:00 AM [facility] REPOSITORY HNO ID: [id number] Author: Mathieu Castaneda Service: General Surgery Author Type: Physician Type: Progress Notes Filed: 09/26/2017 3:21 PM Note Text: [facility] Department of General Surgery [facility] [place] Mathieu Abbott M.D. Surgical Endoscopy Advanced Laparoscopic and General Surgery [address] [place] [address] NAME: SUDHIR ENRIQUE [facility] NO: [id number] DATE OF SERVICE: 09/20/2017 FOLLOWUP VISIT HISTORY OF PRESENT ILLNESS: Since her last visit, Ms. Enrique's case was discussed at our [facility] Tumor [facility]. The plan was recommended to proceed with upfront resection for this clinically resectable presumed GI stromal tumor of the stomach. She has had no further updates in her health since her last visit. Of note, the patient does have a history of acute gallstone pancreatitis and has a gallbladder still in place. PHYSICAL EXAMINATION: She is afebrile with normal vital signs. Her weight is 64 kg and height is 1.54 meters, corresponding to a body mass index of 28.67. Her abdomen is soft, nontender and nondistended. IMPRESSION: A 56-year-old female with incidental GI stromal tumor and history of gallstone pancreatitis. RECOMMENDATION: We will proceed with laparoscopic GI stromal tumor with excision with laparoscopic cholecystectomy and intraoperative cholangiogram. She was consented today and all questions answered to the best of our ability. CARE COORDINATION: The majority of this visit was spent counseling regarding medical versus surgical management. Svtb-xv-ekub time was 15 minutes. MATHIEU ABBOTT M.D. KE/089 Audio #: [id number] cc: Anita Sosa MD [address] [place] [address] via [employer] Date Dictated: 09/20/2017 13:51:51 Date Typed: 09/26/2017 09:36:48 Date Revised:09/26/2017 3:20 PM HOSP Observed: 08/25/2017 Status: COMPLETED Source: [place] 12:00 AM [facility] Patient Update ([facility]) SUDHIR ENRIQUE ([id number]) 1960 F Date Time Provider Department 08/25/17 MATHIEU CASTANEDA During your visit today, we recorded the following information about you: Allergies As of Date: 08/25/2017 (No Known Allergies) Date Reviewed: 08/16/2017 Reviewed by: Mathieu Davis - Fully Assessed Reason for Visit: CURE 10/11/2017 [Other] Primary Visit Diagnosis:Preoperative examination [Z01.818] Order(s):SURGICAL REQUEST - ELECTIVE [[id number]] Order #: [id number]: 1 CONSULT TO [facility] [[id number]] Order #: [id number]: 1 TYPE + SCREEN,30 DAY [QXROWP21] Order #: [id number] FUTURE CBC + DIFF [SQCBCDIF] Order #: [id number] FUTURE COMP METABOLIC PANEL [SQCMP] Order #: [id number] FUTURE XR CHEST 2V FRONTAL/LAT [[id number]] Order #: [id number] FUTURE ECG COMPLETE W INTERPRETATION [ECG01] Order #: [id number] FUTURE HANDP FOR SURGERY [[id number]] Order #: [id number] CONSULT TO PATIENT EDUCATION [[id number]] Order #: [id number]: 1 REFER FOR ADMIT INTERVIEW [] Order #: [id number] ALESSANDRA WHAT TO EXPECT DURING YOUR HOSPITAL STAY [] Order #: [id number]. #:[id number]: 1 ALESSANDRA PT ED ANESTHESIA [[id number]] Order #: [id number]. #:[id number]: 1 ALESSANDRA PT ED GENERAL SURG [[id number]] Order #: [id number]. #:[id number]: 1 ALESSANDRA PT ED MISC [] Order #: [id number]. #:[id number]: 1 Prescriptions as of 08/25/2017 Sig: OMEPRAZOLE MAGNESIUM 20 MG TA* Take 20 mg by mouth as needed. Problem List As Of Date 08/25/2017 Noted Resolved Abnormal mammogram [R92.8] INVALID FOR* Stomach tumor (benign) [D13.1] INVALID FOR* Follow-up and Disposition History Recorded Encounter Status:Closed by QUE SANTOS on 08/25/17 HOSP Observed: 08/25/2017 Status: COMPLETED Source: [place] 12:00 AM [facility] REPOS[facility]ORY Patient:Sudhir Enrique MRN: <[id number]> Height:4' 11(1.499 m) Weight:142 lb (64.411 kg) Outpatient Medications as of 10/11/17: Omeprazole Magnesium (PRILOSEC OTC) 20 mg tablet Admission/Clinic Administered Medications as of 10/11/17: heparin 5,000 Units injection Problem List: Abnormal mammogram [R92.8] Stomach tumor (benign) [D13.1] Allergies: No Known Allergies Date Verified:10/11/17 Lab Values Lab Value Units Date High Low POTA* 4.2 mmol/L 09/20/2017 5.1 3.7 VIANCA* 44.9 % 09/20/2017 46.0 36.0 Progress Notes ([facility]): Rola Dunlap, PHD 09/20/2017 1:59 PM Signed [facility] [place] Name: Sudhir Enrique MR#: [id number] Date: 09/20/17 Time: 3/4 hour Referred by: Dr. Abbott Reason for Referral: address psychological factors as they can affect post-operative recovery. Information relayed back to referral source via electronic medical record Her chart was reviewed and she gave her own history. She was seen with her . She says she is looking forward to getting her surgery over with and has used her tom to cope with the stress of waiting. The basic underlying psychological and physiological mechanisms behind the brain body connection were explained. She was introduced to the concepts and techniques that she can employ to help with pain and healing after surgery. She was given the link to the Behavioral Medicine Program website, instructed on the use of the relaxation recordings, and told of the informational content. She was given the opportunity to ask questions and informed that she could be seen again as an in-patient or in the outpatient clinic. Rola Dunlap, Ph.D. Progress Notes ([facility]): Mathieu Davis MD 09/26/2017 3:21 PM Signed [facility] Department of General Surgery [facility] [place] Mathieu Abbott M.D. Surgical Endoscopy Advanced Laparoscopic and General Surgery [address] [place] [address] NAME: SUDHIR ENRIQUE [facility] NO: [id number] DATE OF SERVICE: 09/20/2017 FOLLOWUP VISIT HISTORY OF PRESENT ILLNESS: Since her last visit, Ms. Enrique's case was discussed at our [facility] Tumor Board. The plan was recommended to proceed with upfront resection for this clinically resectable presumed GI stromal tumor of the stomach. She has had no further updates in her health since her last visit. Of note, the patient does have a history of acute gallstone pancreatitis and has a gallbladder still in place. PHYSICAL EXAMINATION: She is afebrile with normal vital signs. Her weight is 64 kg and height is 1.54 meters, corresponding to a body mass index of 28.67. Her abdomen is soft, nontender and nondistended. IMPRESSION: A 56-year-old female with incidental GI stromal tumor and history of gallstone pancreatitis. RECOMMENDATION: We will proceed with laparoscopic GI stromal tumor with excision with laparoscopic cholecystectomy and intraoperative cholangiogram. She was consented today and all questions answered to the best of our ability. CARE COORDINATION: The majority of this visit was spent counseling regarding medical versus surgical management. Hrja-xr-wdej time was 15 minutes. MATHIEU ABBOTT M.D. KE/089 Audio #: [id number] cc: Anita Sosa MD [address] [place] [address] via [employer] Date Dictated: 09/20/2017 13:51:51 Date Typed: 09/26/2017 09:36:48 Date Revised:09/26/2017 3:20 PM Previous Version Marlon [place] MA, [place] 09/20/2017 8:25 AM Signed What is the reason for your visit today? Pre op Who is your referring physician? Dr kaya davis Are you having poor oral intake? NO Have you had unintentional weight loss of 15 lbs/7 Kg in the last 3-6 months? NO Bowels: regular Wound: clean AND dry Temperature: no Drains: No Eric Franco MD 09/20/2017 9:05 AM Signed HISTORY AND PHYSICAL EXAMINATION SERVICE DATE: 09/20/2017 SERVICE TIME: 9:02 AM PRIMARY CARE PHYSICIAN: Rosas Wilkerson REASON FOR VISIT Sudhir Enrique is a 56 year old female who is being seen for pre op visit The patient has the following: ACTIVE PROBLEM LIST Abnormal Mammogram Stomach Tumor (Benign) SUBJECTIVE: 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 No pain. No vomiting. No bloody BMs/melena. FUNCTIONAL STATUS: Run a short distance (8.00 METs) PAST MEDICAL HISTORY Diagnosis Date - History of esophagogastroduodenoscopy (EGD) 05/20/2017 - History of MRI 06/02/2017 abdominal MRI - NEGATIVE MEDICAL HISTORY - Pancreatitis 04/2017 attributed to gallstones PAST SURGICAL HISTORY Procedure Laterality Date - NONE FAMILY HISTORY Problem Relation Age of Onset - Breast Cancer Mother - Heart Maternal Grandfather - Heart Paternal Grandmother - Stroke Father SOCIAL HISTORY: Social History Substance Use Topics - Smoking status: Never Smoker - Smokeless tobacco: Never Used - Alcohol use No MEDICATIONS Prior to Admission medications as of 09/20/17 0901 Medication Sig Last Dose Taking Omeprazole Magnesium (PRILOSEC OTC) 20 mg tablet Take 20 mg by mouth as needed. Yes No medication comments found. CURRENT ALLERGIES ALLERGIES No Known Allergies REVIEW OF SYSTEMS PAIN ASSESSMENT: General: No weight loss, malaise or fevers. Neuro: negative Respiratory: No history of current cough or dyspnea, or pneumonia in the past 6 weeks. No history of respiratory/pulmonary symptoms or problems Cardiovascular: No history of HTN requiring medication, no history of angina, CHF, SC, cardiac surgery or stents. Denies rest pain, gangrene or revascularization/amputation for PVD. No history of cardiovascular symptoms or problems. GI: See HPI : No history of UTI in past 6 weeks. No history of renal failure. Not currently on or requiring dialysis. No history of symptoms or problems. 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 Has not taken steroids within the past 30 days. No history of endocrinological symptoms or problems. Hematology: No history of bleeding or clotting disorder. Pt is not taking anti-coagulation or platelet medications. No history of hematological symptoms or problems. Oncology: No history of CA metastasis, chemo within 30 days, or radiotherapy within 90 days. Has not lost 10% of body wt in 6 months. No history of oncological symptoms or problems. Psych: No history of psychiatric symptoms or problems. PHYSICAL EXAM BP 124/72 Pulse 60 Temp (Src) 98.2 (Temporal Artery) Resp 18 Ht 4' 11 (1.50m) Wt 142 lb (64.4kg) BMI 28.67 kg/(m2). General: Alert and oriented Cardiovascular: Normal S1 AND S2, no rubs, murmurs or gallops. No JVD. Pulse regular. Lungs: Normal breath sounds, no wheezes or crackles. Abdomen: Soft, non-tender, no rigidity. Extremities: No deformity, no edema or tenderness, no joint swelling or clubbing. Neurological: Normal cognition and motor skills. 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 Mathieu Davis MD Attending Note I evaluated the patient and personally participated in the torres components. I agree with the resident's findings and plan as documented and have discussed the case and management of the patient's care with the resident. Signature: Mathieu Davis MD Date: 09/20/2017 Time: 3:05 PM PROGRESS Observed: 08/22/2017 Status: COMPLETED Source: [place] 8:16 AM [facility] HNO ID: [id number] Author: Mathieu Davis Service: (none) Author Type: Physician Type: Progress Notes Filed: 08/22/2017 8:19 AM Note Text: [facility] Tumor Board Encounter Date of Tumor Board Presentation: 08/22/2017 Tumor Board Review Type: New [facility] Case Attendance/Disciplines: Orthopedic Surgery, Medical Oncology, Pediatric Oncology , Radiation Oncology, Radiology, Pathology and General Surgery Presenting Physician(s): Mathieu Abbott MD, FACS Age: [age] year old Primary Disease Site: Stomach Histology: Malignant-Sarcoma: Soft Tissue Deep to fascia: Unknown TNM Stage: NA Malignant [facility] Tumor Category: Soft Tissue: OTHER: Stomach Margins: NA Care Path Discussion: Yes Clinical Trial Discussion: No Management Discussion: 56 year old with incidental stomach mass found during bout of acute pancreatitis. EGD/EUS FNA consistent with small amount of spindle cells. Clinically this is resectable stomach GI stromal tumor. Discussion favors resection up front. Citations: NA This abstract and interpretation of the conversation at tumor board has been completed by Mathieu Davis MD. These are the general management options provided at tumor board conference. The definitive recommendations/discussion will be made by the primary health care team and patient after full discussion as appropriate. Please refer to individual notes by the treating physicians as a final plan of treatment. HISTORY PHYSICAL Observed: 08/16/2017 Status: COMPLETED Source: [place] 9:35 AM [facility] HNO ID: [id number] Author: Nicolas William MS Service: (none) Author Type: (none) Type: HANDP Filed: 08/16/2017 10:04 AM Note Text: GENERAL SURGERY HISTORY AND PHYSICAL EXAMINATION SERVICE DATE: 08/16/2017 SERVICE TIME: 9:00 PRIMARY CARE PHYSICIAN: Rosas Wilkerson MD Subjective CHIEF COMPLAINT: Incidental finding of stomach mass HPI: Sudhir Enrique is a 56 year old female who presents with h/o incidental finding of stomach mass on a OSH CT-scan performed on 04/16/2017. She developed acute epigastric pain w/ radiation to the back on 06/07/2016, which prompt her to attend an OSH ED. Pt was eventually diagnosed and treated for acute pancreatitis based on elevated lipase levels, and inflammation of pancreas on CT scan. Additionally, the CT scan showed a mass in the stomach for which the patient eventually underwent an EGD on 05/30/[address] Garnett, w/out finding of a mass. Per records, tumor markers are normal. An EGD + EUS was performed by Dr. Howard, identifying a single gastric polyp, which was resected and retrieved, and a mass in the distal body of the stomach arising from the muscularis propria with normal overlying mucosa. FNA was performed, evidencing rare mildly atypical spindle cells, suggesting stomach GIST. Currently, she is asymptomatic. FUNCTIONAL STATUS: Independent PAST MEDICAL HISTORY Diagnosis Date - History of esophagogastroduodenoscopy (EGD) 05/20/2017 - History of MRI 06/02/2017 abdominal MRI - NEGATIVE MEDICAL HISTORY PAST SURGICAL HISTORY Procedure Laterality Date - NONE FAMILY HISTORY Problem Relation Age of Onset - Breast Cancer Mother - Heart Maternal Grandfather - Heart Paternal Grandmother - Stroke Father Social History Substance Use Topics - Smoking status: Never Smoker - Smokeless tobacco: Never Used - Alcohol use No (Not in a hospital admission) ALLERGIES No Known Allergies Current medications: Omeprazol PRN (approx. 2 times per wk) Screening: Reports last colonoscopy 4 yr ago, negative. COMPLETE REVIEW OF SYSTEMS: GENERAL: No weight loss, malaise or fevers HEENT: Negative for frequent or significant headaches NECK: Negative for lumps, goiter, pain and significant neck swelling RESPIRATORY: Negative for cough, hemoptysis, wheezing, COPD, dyspnea or shortness of breath CARDIOVASCULAR: Negative for chest pain, leg swelling, CHF or palpitations GI: No nausea, vomiting, or diarrhea : No history of dysuria, frequency or incontinence TUBER OPERATOR: Negative for abnormal vaginal bleeding, abnormal vaginal discharge MUSCULOSKELETAL: Negative for joint pain or swelling, back pain or muscle pain SKIN: Negative for lesions, rash, and itching PSYCH: Negative HEMATOLOGY/LYMPHOLOGY: Negative for prolonged bleeding, bruising easily or swollen nodes ENDOCRINE: Negative for cold or heat intolerance, polyuria, polydipsia and goiter NEURO: No history of headaches, syncope, paralysis, seizures or tremors Objective BP 129/79 Pulse 70 Temp (Src) 98.5 (Temporal Artery) Resp 14 Ht 4' 11 (1.50m) Wt 145 lb (65.8kg) BMI 29.27 kg/(m2). PHYSICAL EXAM: Physical Exam Performed: GENERAL: Alert, no distress, cooperative SKIN: Skin color, texture, turgor normal. No rashes or lesions. OROPHARYNX: Lips, mucosa, and tongue normal. Oropharynx normal. NECK: No jugulovenous distention, Supple, no LAD LUNGS: Lungs clear to auscultation, Good diaphragmatic excursion CARDIAC: Normal S1 and S2; no rubs, murmurs, or gallops ABDOMEN: Abdomen soft, non-tender, No masses or organomegaly EXTREMITIES: Good capillary refill, no peripheral edema NEURO: AAOx3 PULSES: 2+ radial DATA: Diagnostic tests reviewed for today's visit: Most recent labs and imaging results. Assessment/Plan Mrs. Enrique is a 56-year-old woman who developed acute pancreatitis April 16, 2017 and was admitted to an OSH. A CT scan of the abdomen showed a gastric mass, which was eventually studied by a EUS and FNA showing a mass in the distal body of the stomach arising from the muscularis propria with normal overlying mucosa. FNA was performed, evidencing rare mildly atypical spindle cells, suggesting stomach GIST. She is currently asymptomatic. - Patient and were explained regarding the diagnosis and poss treatments - Pt was consented - Will take the case to the tumor board for further discussion and decision making regarding neoadjuvant treatment SIGNATURE: Nicolas William MS PATIENT NAME: Sudhir Enrique DATE: August 16, 2017 TIME: 9:35 AM PAGER/CONTACT #: ... PROGRESS Observed: 08/16/2017 Status: COMPLETED Source: [place] 9:19 AM [facility] HNO ID: [id number] Author: Mathieu Davis Service: (none) Author Type: Physician Type: Progress Notes Filed: 08/16/2017 3:20 PM Note Text: This office note has been dictated. Mathieu Davis MD Attending Note I evaluated the patient and personally participated in the torres components. I agree with the medical student's findings and plan as documented and have discussed the case and management of the patient's care with the medical student. Signature: Mathieu Davis MD Date: 08/16/2017 Time: 9:19 AM CNOV Observed: 08/16/2017 Status: COMPLETED Source: [place] 9:00 AM [facility] Office Visit (CHASE) SUDHIR ENRIQUE ([id number]) 1960 F Date Time Provider Department 08/16/17 9:00 AM MATHIEU CASTANEDA During your visit today, we recorded the following information about you: Temperature Pulse Respiration Blood pressure 98.5 degrees 70/minute 14/minute 129/79 Weight Height 65.8 kg 1.499 m Jose Ramon Clarke 08/16/2017 8:39 AM Signed What is the reason for your visit today? consult Who is your referring physician? Dr. Wilkerson Are you having poor oral intake? NO Have you had unintentional weight loss of 15 lbs/7 Kg in the last 3-6 months? NO Bowels: regular Wound: clean ANDamp; dry Temperature: No Drains: No Mathieu Davis MD 08/16/2017 3:20 PM Signed This office note has been dictated. Mathieu Davis MD Attending Note I evaluated the patient and personally participated in the torres components. I agree with the medical student's findings and plan as documented and have discussed the case and management of the patient's care with the medical student. Signature: Mathieu Davis MD Date: 08/16/2017 Time: 9:19 AM Nicolas William DC 08/16/2017 10:04 AM Signed GENERAL SURGERY HISTORY AND PHYSICAL EXAMINATION SERVICE DATE: 08/16/2017 SERVICE TIME: 9:00 PRIMARY CARE PHYSICIAN: Rosas Wilkerson MD Subjective CHIEF COMPLAINT: Incidental finding of stomach mass HPI: Sudhir Enrique is a 56 year old female who presents with h/o incidental finding of stomach mass on a OSH CT-scan performed on 04/16/2017. She developed acute epigastric pain w/ radiation to the back on 06/07/2016, which prompt her to attend an OSH ED. Pt was eventually diagnosed and treated for acute pancreatitis based on elevated lipase levels, and inflammation of pancreas on CT scan. Additionally, the CT scan showed a mass in the stomach for which the patient eventually underwent an EGD on 05/30/[address] Garnett, w/out finding of a mass. Per records, tumor markers are normal. An EGD + EUS was performed by Dr. Howard, identifying a single gastric polyp, which was resected and retrieved, and a mass in the distal body of the stomach arising from the muscularis propria with normal overlying mucosa. FNA was performed, evidencing rare mildly atypical spindle cells, suggesting stomach GIST. Currently, she is asymptomatic. FUNCTIONAL STATUS: Independent PAST MEDICAL HISTORY Diagnosis Date - History of esophagogastroduodenoscopy (EGD) 05/20/2017 - History of MRI 06/02/2017 abdominal MRI - NEGATIVE MEDICAL HISTORY PAST SURGICAL HISTORY Procedure Laterality Date - NONE FAMILY HISTORY Problem Relation Age of Onset - Breast Cancer Mother - Heart Maternal Grandfather - Heart Paternal Grandmother - Stroke Father Social History Substance Use Topics - Smoking status: Never Smoker - Smokeless tobacco: Never Used - Alcohol use No (Not in a hospital admission) ALLERGIES No Known Allergies Current medications: Omeprazol PRN (approx. 2 times per wk) Screening: Reports last colonoscopy 4 yr ago, negative. COMPLETE REVIEW OF SYSTEMS: GENERAL: No weight loss, malaise or fevers HEENT: Negative for frequent or significant headaches NECK: Negative for lumps, goiter, pain and significant neck swelling RESPIRATORY: Negative for cough, hemoptysis, wheezing, COPD, dyspnea or shortness of breath CARDIOVASCULAR: Negative for chest pain, leg swelling, CHF or palpitations GI: No nausea, vomiting, or diarrhea : No history of dysuria, frequency or incontinence TUBER OPERATOR: Negative for abnormal vaginal bleeding, abnormal vaginal discharge MUSCULOSKELETAL: Negative for joint pain or swelling, back pain or muscle pain SKIN: Negative for lesions, rash, and itching PSYCH: Negative HEMATOLOGY/LYMPHOLOGY: Negative for prolonged bleeding, bruising easily or swollen nodes ENDOCRINE: Negative for cold or heat intolerance, polyuria, polydipsia and goiter NEURO: No history of headaches, syncope, paralysis, seizures or tremors Objective BP 129/79 Pulse 70 Temp (Src) 98.5 (Temporal Artery) Resp 14 Ht 4' 11ANDquot; (1.50m) Wt 145 lb (65.8kg) BMI 29.27 kg/(m2). PHYSICAL EXAM: Physical Exam Performed: GENERAL: Alert, no distress, cooperative SKIN: Skin color, texture, turgor normal. No rashes or lesions. OROPHARYNX: Lips, mucosa, and tongue normal. Oropharynx normal. NECK: No jugulovenous distention, Supple, no LAD LUNGS: Lungs clear to auscultation, Good diaphragmatic excursion CARDIAC: Normal S1 and S2; no rubs, murmurs, or gallops ABDOMEN: Abdomen soft, non-tender, No masses or organomegaly EXTREMITIES: Good capillary refill, no peripheral edema NEURO: AAOx3 PULSES: 2+ radial DATA: Diagnostic tests reviewed for today's visit: Most recent labs and imaging results. Assessment/Plan Mrs. Enrique is a 56-year-old woman who developed acute pancreatitis April 16, 2017 and was admitted to an OSH. A CT scan of the abdomen showed a gastric mass, which was eventually studied by a EUS and FNA showing a mass in the distal body of the stomach arising from the muscularis propria with normal overlying mucosa. FNA was performed, evidencing rare mildly atypical spindle cells, suggesting stomach GIST. She is currently asymptomatic. - Patient and were explained regarding the diagnosis and poss treatments - Pt was consented - Will take the case to the tumor board for further discussion and decision making regarding neoadjuvant treatment SIGNATURE: Nicolas William MS PATIENT NAME: Sudhir Enrique DATE: August 16, 2017 TIME: 9:35 AM PAGER/CONTACT #: ... Referring Provider: SHEILA HOWARD [[id number]] Allergies As of Date: 08/16/2017 (No Known Allergies) Date Reviewed: 08/16/2017 Reviewed by: Mathieu Davis - Fully Assessed Reason for Visit: Consult [173] Primary Visit Diagnosis:Stomach tumor (benign) [D13.1] Prescriptions as of 08/16/2017 Sig: OMEPRAZOLE MAGNESIUM 20 MG TA* Take 20 mg by mouth as needed. Problem List As Of Date 08/16/2017 Noted Resolved Abnormal mammogram [R92.8] INVALID FOR* Stomach tumor (benign) [D13.1] INVALID FOR* Visit Notes: >> Jose Ramon Eric Aug 16, 2017 8:32 AM Status: Signed What is the reason for your visit today? consult Who is your referring physician? Dr. Wilkerson Are you having poor oral intake? NO Have you had unintentional weight loss of 15 lbs/7 Kg in the last 3-6 months? NO Bowels: regular Wound: clean AND dry Temperature: No Drains: No Disposition: Return if symptoms worsen or fail to improve. Follow-up and Disposition History Recorded Encounter Status:Closed by MATHIEU CASTANEDA MD on 08/16/17 PROGRESS Observed: 08/16/2017 Status: COMPLETED Source: [place] 12:00 AM [facility] HNO ID: [id number] Author: Mathieu Davis Service: General Surgery Author Type: Physician Type: Progress Notes Filed: 08/19/2017 9:34 AM Note Text: [facility] Department of General Surgery Digestive Disease [place] Mathieu Abbott M.D. Surgical Endoscopy Advanced Laparoscopic and General Surgery [address] [place] [address] NAME: SUDHIR ENRIQUE [facility] NO: [id number] DATE OF SERVICE: 08/16/2017 INITIAL CONSULTATION REFERRING PHYSICIAN: Sheila Howard M.D. My final recommendations will be communicated back via the shared electronic medical record. CHIEF COMPLAINT: Epigastric pain. HISTORY OF PRESENT ILLNESS: Ms. Enriqeu is a very pleasant 56-year-old female who during workup for epigastric pain was found to have an incidental mass on a CT scan done at an outside facility on 04/16/2017. She was diagnosed with acute pancreatitis. Following this, she ultimately presented to Dr. Howard and underwent an endoscopic ultrasound and fine needle aspiration of this. This was consistent with atypical spindle cells suggesting GI stromal tumor. The patient was referred to me for surgical evaluation. Her abdominal pain has since resolved since the CT scan. PAST MEDICAL HISTORY: Notable per the history and physical below. PAST SURGICAL HISTORY: Notable per the history and physical below. FAMILY HISTORY: She has had a mother with breast cancer and father with stroke. SOCIAL HISTORY: She denies history of smoking or alcohol. PHYSICAL EXAMINATION: She is afebrile with normal vital signs. Her weight is 65 kg and height is 1.5 meters, corresponding to a body mass index of 29.27. Her abdomen is soft, nontender and nondistended. DIAGNOSTIC DATA: The diagnostic labs and imaging were reviewed. Most notably, her CT scan shows an anterior stomach wall mass that measures roughly 5 cm. This was also shown on the upper endoscopy showing a submucosal lesion. FNA was performed showing atypical spindle cells suggesting GI stromal tumor. 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 RECOMMENDATION: I did discuss that this appears resectable, however, we will discuss the case at our [facility] Tumor Board to discuss whether or not neoadjuvant therapy would be beneficial or indicated for the patient. A consent form was obtained today for a laparoscopic possible open partial gastrectomy with or without reconstruction. CARE COORDINATION: The majority of this visit was spent counseling regarding medical versus surgical management. [id number] time was 30 minutes. MATHIEU ABBOTT M.D. KE/[id number] Audio #: [id number] cc: Anita Sosa MD [address] [place] [address] Date Dictated: 08/16/2017 14:02:37 Date Typed: 08/18/2017 08:55:02 Date Revised: 08/19/2017 9:33 AM CYTOLOGY Observed: 07/13/2017 Status: F Source: [place] 7:53 PM [facility] REPOSITORY Specimen originated from [facility] Specimen #: [id number] Submitting Physician: SHEILA HOWARD M.D. ([id number]) SPECIMEN SUBMITTED A: STOMACH MASS, FINE NEEDLE ASPIRATE (THINPREP,SMEARS AND CELL BLOCK) FINAL DIAGNOSIS A. STOMACH MASS, FINE NEEDLE ASPIRATE (THINPREP,SMEARS AND CELL BLOCK) Rare mildly atypical spindle cells present, not otherwise diagnostic. Chely Almaraz M.D. (Electronic Signature) CLINICAL DATA STOMACH MASS ADEQUACY INTERPRETATION DIFF QUIK RAPID READ #1-8 Non-diagnostic / GROSS DESCRIPTION 30cc clear pink CytoLyt with particles and 16 smears (8 Diff Quik and 8 pap stained) STAINS A: STOMACH MASS, FINE NEEDLE ASPIRATE (THINPREP,SMEARS AND CELL BLOCK) SMEARS RECEIVED x 16, THIN PREP Non-Press Technician, CELL BLOCK, H&E, Initial Date of Report: 07/14/2017 Date of Procedure: 07/13/2017 Date of Receipt: 07/13/2017 Submitted by: SHEILA HOWARD M.D. ([id number]) Location: Q31 Diagnostic interpretation performed at [facility], [address] [place] [id number]. ANES POST Observed: 07/13/2017 Status: COMPLETED Source: [place] 4:23 PM [facility] REPOSITORY HNO ID: [id number] Author: Mayur Magallanes Service: Anesthesiology Author Type: Anesthesiologist Type: Anesthesia PostOp Filed: 07/13/2017 4:24 PM Note Text: POST ANESTHESIA EVALUATION NOTE SERVICE DATE: 07/13/2017 SERVICE TIME: 1626 : 1960 Vitals: 104/65 HR 75 RR 20 SAO2 98 There were no vitals filed for this visit. There were no vitals filed for this visit. There were no vitals filed for this visit. There were no vitals filed for this visit. There were no vitals filed for this visit. Validated Vital Signs: Yes POST ANES STATUS: No apparent anesthetic complications. The patient is appropriately hydrated with stable respiratory and cardiovascular status. Patient has safe and adequate airway control. The patient has appropriate pain relief and no significant post operative nausea or vomiting. The patient has achieved baseline mental status. Further assessment by Anesthesia Service: None Other Remarks: awake, alert, fluent, comfortable, abd soft and NT. SIGNATURE: Mayur Magallanes MD PATIENT NAME: Sudhir Enrique DATE: July 13, 2017 TIME: 4:23 PM PAGER/CONTACT #: [phone] SURGICAL PATHOLOGY Observed: 07/13/2017 Status: F Source: [place] 3:38 PM [facility] REPOSITORY Specimen originated from [facility] Specimen #: [id number] Submitting Physician: SHEILA HOWARD M.D. ([id number]) FINAL DIAGNOSIS Stomach, lesion, biopsy - Superficial gastric mucosa with histologic features consistent with fundic gland polyp. - Negative for dysplasia. - No submucosa present for evaluation. KL/peter/07/14/17 Black Moreland M.D. (Electronic Signature) SPECIMEN SUBMITTED A: STOMACH, BIOPSY CLINICAL DATA STOMACH TUMOR ASSESS FOR ADENOMA GROSS DESCRIPTION A. Received in formalin are three pieces of loera, soft tissue aggregating to 1.2 x 0.2 x 0.1 cm. Totally submitted in one cassette. Gross examination performed at [facility], [address] [place] [address] 07/13/2017 9:50:00 PM Date of Report: 07/14/2017 Date of Procedure: 07/13/2017 Date of Receipt: 07/13/2017 Submitted by: SHEILA HOWARD M.D. ([id number]) Location: Q31 Diagnostic interpretation performed at [facility], [address] [place] [address]. CBC Collected: 06/30/2017 Status: F Source: [place] 1:06 PM [facility] TYPE CODE TESTS RESULT OUT OF REFERENCE UNITS RANGE LAB WBC 3.70-11.00 k/uL WBC 6.69 LAB RBC 3.90-5.20 m/uL RBC 5.00 LAB HGB 11.5-15.5 g/dL Hemoglobin 14.2 LAB HCT 36.0-46.0 % Hematocrit 45.4 LAB MCV 80.0-100.0 fL MCV 90.8 LAB MCH 26.0-34.0 pG MCH 28.4 LAB MCHC 30.5-36.0 g/dL MCHC 31.3 LAB RDWCV 11.5-15.0 % RDW-CV 14.0 LAB PLTCT 150-400 k/uL Platelet Count 364 LAB MPV 9.0-12.7 fL MPV 10.4 LAB ABSNUC <0.01 k/uL Absolute nRBC <0.01 Performed By: #### CBC, CMP #### [facility] [address] [place] [address] COMP METABOLIC PANEL Collected: 06/30/2017 Status: F Source: [place] 1:06 PM [facility] TYPE CODE TESTS RESULT OUT OF REFERENCE UNITS RANGE LAB TP 6.3-8.0 g/dL Protein, High Total 8.3 LAB ALB 3.9-4.9 g/dL Albumin 4.5 LAB CA 8.5-10.2 mg/dL Calcium, Total 9.4 LAB TBIL 0.2-1.3 mg/dL Bilirubin, Total 0.5 LAB ALKP 32-117 U/L Alkaline Phosphatase 108 LAB AST 13-35 U/L AST 25 LAB GLU 74-99 mg/dL Glucose 74 Result Comment: The [place] [employer] (ADA) provides guidance for cutoff values for fasting glucose and random glucose. The ADA defines fasting as no caloric intake for at least 8 hours. Fas ting plasma glucose results between 100 to 125 mg/dL indicate increased risk for diabetes (prediabetes). Fasting plasma glucose results greater than or equal to 126 mg/dL meet the criteria for diagnosis of diabetes. In the absence of unequivocal hyperglycemia, results should be confirmed by repeat testing. In a patient with classic symptoms of hyperglycemia or hyperglycemic crisis, random plasma glucose results greater than or equal to 200 mg/dL meet the criteria for diagnosis of diabetes. Reference: Standards of Medical Care in Diabetes 2016, [place] [employer]. Diabetes Care. 2016.39(Suppl 1). LAB BUN 7-21 mg/dL BUN 19 LAB CRET 0.58-0.96 mg/dL Creatinine 0.73 LAB NA 136-144 mmol/L Sodium 142 LAB K 3.7-5.1 mmol/L Potassium 3.8 LAB CL 97-105 mmol/L Chloride 103 LAB CO2 22-30 mmol/L CO2 24 LAB AGAP 9-18 mmol/L Anion Gap 15 LAB ALT 7-38 U/L ALT 26 LAB GFRAA eGFR- Amer. >60 LAB GFRNAA . eGFR-All Other Races >60 Result Comment: eGFR (Estimated GFR) Units of measure: mL/min/1.73 meters squared eGFR is derived from the reexpressed MDRD Study equation using the following parameters: serum creatinine, age, gender and race. The creatinine assay has been calibrated to be traceable to IDMS. An eGFR <60 mL/min/1.73m2 for >3 months is consistent with chronic kidney disease. Refer to KDOQI guidelines for clinical interpretation. In patients with unstable renal function, e.g. those with acute kidney injury, the eGFR may not accurately reflect actual GFR. Performed By: #### CBC, CMP #### [facility] [address] [id number] PROGRESS Observed: 06/30/2017 Status: COMPLETED Source: [place] 9:51 AM [facility] HNO ID: [id number] Author: Sheila Howard Service: (none) Author Type: Physician Type: Progress Notes Filed: 06/30/2017 11:50 AM Note Text: . PROGRESS Observed: 06/30/2017 Status: COMPLETED Source: [place] 8:34 AM [facility] HNO ID: [id number] Author: Sheila Howard Service: (none) Author Type: Physician Type: Progress Notes Filed: 06/30/2017 11:50 AM Note Text: New Patient/Consult REASON FOR VISIT Sudhir Enrique is a 56 year old female who is scheduled for a consult at the request of Kay Garnett. CHIEF COMPLAINT No chief complaint on file. My final recommendations will be communicated back to the requesting physician by the way of the shared medical record, fax, or via US Mail. HISTORY OF PRESENT ILLNESS Sudhir Enrique is a 56 year old woman who developed epigastric pain with radiation to the back on April 16, 2017 leading to a hospital visit. The patient was eventually diagnosed as having acute pancreatitis based on elevated lipase levels (in thousands range) and inflammation of pancreas on sectional imaging. The CT also showed a mass in the stomach for which the patient eventually underwent an upper endoscopy (on 05/30/17) by Dr. Garnett. The EGD was normal without finding of a mass. Per records, Tumor markers are normal. She is asymtomactic Review of systems: Currently she is asymptomatic. Denies weight loss. Denies nausea and vomiting. Denies blood in stool. Other review of systems are negative Past medical history/past surgical history: Acute pancreatitis in April 2017. Otherwise healthy without any prior surgeries Social history: No alcohol No tobacco Family history: Mother was diagnosed as having breast cancer in her mid 60s MEDICATIONS No current outpatient prescriptions on file. No current facility-administered medications for this visit. ALLERGIES ALLERGIES No Known Allergies PAST MEDICAL HISTORY PAST MEDICAL HISTORY Diagnosis Date - NEGATIVE MEDICAL HISTORY PAST SURGICAL HISTORY PAST SURGICAL HISTORY Procedure Laterality Date - NONE SOCIAL HISTORY Social History Marital status: Spouse name: Years of education: Number of children: Social History Main Topics Smoking status: Never Smoker Alcohol use: No FAMILY HISTORY FAMILY HISTORY Problem Relation Age of Onset - Breast Cancer Mother - Heart Maternal Grandfather - Heart Paternal Grandmother - Stroke Father PHYSICAL EXAMINATION There were no vitals taken for this visit. General appearance: cooperative, in no acute distress Neurological: alert and oriented x3, exam grossly non-focal, No Asterixis Eyes: conjunctivae/corneas clear Oropharynx: Lips, tongue and oral mucosa normal Lungs: Lungs clear to auscultation. No wheezing or ronchi. Heart: S1, S2 Normal Abdomen: Abdomen soft, non-tender, Bowel sounds normal, No masses, No organomegaly and no tenderness on palpation or percussion. Extremities: Extremities normal. No deformities, edema, or skin discoloration Skin:no rashes, lesions, or jaundice Lymph:No abnormal adenopathy Assessment IMPRESSION AND PLAN 56-year-old pleasant woman who developed acute pancreatitis April 16, 2017 and was admitted to an outside facility. A CT scan of the abdomen showed a gastric mass. A subsequent EGD did not show any mass in the stomach. I reviewed the CT scans with one of our radiologists. There is a mass possibly arising from the outer wall of the stomach in the distal gastric body. The mass is large and measures approximately 4 or 5 cm in diameter, likely a Gist based on CT imaging. - EUS FNA - Routine labs Sheila Howard MD June 30, 2017 8:34 AM HOSP Observed: 06/30/2017 Status: COMPLETED Source: [place] 12:00 AM [facility] Patient:Sudhir Enrique MRN: <[id number]> Height:4' 11(1.499 m) Weight:146 lb 2 oz (66.282 kg) Outpatient Medications as of 07/13/17: Omeprazole Magnesium (PRILOSEC OTC) 20 mg tablet Admission/Clinic Administered Medications as of 07/13/17: Patient has no admission medications. Problem List: Abnormal mammogram [R92.8] Stomach tumor (benign) [D13.1] Allergies: No Known Allergies Date Verified:06/30/17 Lab Values Lab Value Units Date High Low POTA* 3.8 mmol/L 06/30/2017 5.1 3.7 VIANCA* 45.4 % 06/30/2017 46.0 36.0 Progress Notes ([facility]): Sheila Howard MD 06/30/2017 11:50 AM Signed New Patient/Consult REASON FOR VISIT Sudhir Enrique is a 56 year old female who is scheduled for a consult at the request of Kay Garnett. CHIEF COMPLAINT No chief complaint on file. My final recommendations will be communicated back to the requesting physician by the way of the shared medical record, fax, or via US Mail. HISTORY OF PRESENT ILLNESS Sudhir Enrique is a 56 year old woman who developed epigastric pain with radiation to the back on April 16, 2017 leading to a hospital visit. The patient was eventually diagnosed as having acute pancreatitis based on elevated lipase levels (in thousands range) and inflammation of pancreas on sectional imaging. The CT also showed a mass in the stomach for which the patient eventually underwent an upper endoscopy (on 05/30/17) by Dr. Garnett. The EGD was normal without finding of a mass. Per records, Tumor markers are normal. She is asymtomactic Review of systems: Currently she is asymptomatic. Denies weight loss. Denies nausea and vomiting. Denies blood in stool. Other review of systems are negative Past medical history/past surgical history: Acute pancreatitis in April 2017. Otherwise healthy without any prior surgeries Social history: No alcohol No tobacco Family history: Mother was diagnosed as having breast cancer in her mid 60s MEDICATIONS No current outpatient prescriptions on file. No current facility-administered medications for this visit. ALLERGIES ALLERGIES No Known Allergies PAST MEDICAL HISTORY PAST MEDICAL HISTORY Diagnosis Date - NEGATIVE MEDICAL HISTORY PAST SURGICAL HISTORY PAST SURGICAL HISTORY Procedure Laterality Date - NONE SOCIAL HISTORY Social History Marital status: Spouse name: Years of education: Number of children: Social History Main Topics Smoking status: Never Smoker Alcohol use: No FAMILY HISTORY FAMILY HISTORY Problem Relation Age of Onset - Breast Cancer Mother - Heart Maternal Grandfather - Heart Paternal Grandmother - Stroke Father PHYSICAL EXAMINATION There were no vitals taken for this visit. General appearance: cooperative, in no acute distress Neurological: alert and oriented x3, exam grossly non-focal, No Asterixis Eyes: conjunctivae/corneas clear Oropharynx: Lips, tongue and oral mucosa normal Lungs: Lungs clear to auscultation. No wheezing or ronchi. Heart: S1, S2 Normal Abdomen: Abdomen soft, non-tender, Bowel sounds normal, No masses, No organomegaly and no tenderness on palpation or percussion. Extremities: Extremities normal. No deformities, edema, or skin discoloration Skin:no rashes, lesions, or jaundice Lymph:No abnormal adenopathy Assessment IMPRESSION AND PLAN 56-year-old pleasant woman who developed acute pancreatitis April 16, 2017 and was admitted to an outside facility. A CT scan of the abdomen showed a gastric mass. A subsequent EGD did not show any mass in the stomach. I reviewed the CT scans with one of our radiologists. There is a mass possibly arising from the outer wall of the stomach in the distal gastric body. The mass is large and measures approximately 4 or 5 cm in diameter, likely a Gist based on CT imaging. - EUS FNA - Routine labs Sheila Howard MD June 30, 2017 8:34 AM Previous Version Sheila Howard MD 06/30/2017 11:50 AM Signed . Previous Version Progress Notes ([facility]): Carol Arroyo 06/24/2017 4:10 PM Addendum Cancelled appt. scheduled for 06/20/17 due to physician illness. Pt. agreed to reschedule for 06/30/17. Carol Etienneett 06/24/17 - Mailed appt. reminder Previous Version MRI ABD WITH AND W/O Observed: 06/02/2017 Status: F Source: [place] CONTRAST 9:56 AM [facility] Imaging Services [address] [place] [address] MRI Abd WITH and W/O Contrast MR#: [id number] Acct: [id number] Name: SUDHIR ENRIQUE Rep #: [id number] : 1960 F 56 From: Nacho Coleman MD PCP: Rosas Wilkerson Status: REG CLI Study: MRI Abd WITH and W/O Contrast Date of Exam: 06/02/17 Exam# [id number] Ordering Dr: ULISES GARNETT STUDY: MRI ABDOMEN WITH AND WITHOUT CONTRAST REASON FOR EXAM: Female, 56 years old. mass of stomach, f/u to ultrasound/ct, hx pancreatitis 04/2017 TECHNIQUE: Standardized fat and water weighted pulse sequences were obtained in all 3 orthogonal planes post contrast administration. 7 ml of Gadavist contrast material was administered intravenously for the contrast portion of the examination. COMPARISON: CT Abdomen/Pelvis Apr 16 2017 8:47am FINDINGS: The visualized lung bases are unremarkable. The visualized portions of the heart are within normal limits. There is a calcification in the left lobe of the liver. Normal gallbladder and extrahepatic biliary system. Normal spleen. Normal pancreas. Normal bilateral adrenal glands. Small T2 hyperintensities in both kidneys consistent for cortical cysts. There is a 56 x 56mm mass in the greater curvature of the stomach. The mass enhances. Normal small intestine. There are multiple colonic diverticula consistent with diverticulosis. The appendix is visualized and appears normal. Normal abdominal aorta. Normal inferior vena cava. Normal retroperitoneum. Normal abdominal wall. There are diffuse degenerative changes of the visualized lumbar spine. MRI/MRI Abd WITH and W/O Contrast IMPRESSION: There is a 56 x 56mm mass in the greater curvature of the stomach. This is concerning for a neoplasm. PET scan should evaluate. Simple bilateral renal cysts. Electronically Signed: Nacho Coleman MD at 18:51 EST , Service support , CC: Rosas Wilkerson; ULISES GARNETT Polysomnographic Technologist: Signed CARCINOEMBRYONIC ANTIGEN Collected: 06/02/2017 Status: F Source: [place] 9:48 AM [facility] [place] [facility] Order Comment: Is Patient ? N TYPE CODE TESTS RESULT OUT OF RANGE REFERENCE UNITS LAB L3100.2300 0.0-4.7 ng/mL Normal CEA 1.4 Result Comment: Elliott ECLIA methodology Nonsmokers <3.9 Smokers <5.6 Performed By: #### L3100.2300, L3100.5000, L3100.5017, L3300.0700 #### [facility] (refer to report for specific site) refer to report for address and phone number CANCER ANTIGEN 125 Collected: 06/02/2017 Status: F Source: [place] 9:48 AM [facility] [place] [facility] Order Comment: Is Patient ? N TYPE CODE TESTS RESULT OUT OF RANGE REFERENCE UNITS LAB L3100.5000 0.0-38.1 U/mL Normal CA125 6.9 2303 Result Comment: Elliott ECLIA methodology Performed at: - [facility] [id number] Aircraft Refueler: Julio Taylor PhD, Phone: [phone] Performed By: #### L3100.2300, L3100.5000, L3100.5017, L3300.0700 #### [facility] (refer to report for specific site) refer to report for address and phone number CA 19-9 SERIAL Collected: 06/02/2017 Status: F Source: [place] MONITOR 9:48 AM [facility] [place] [facility] Order Comment: Is Patient ? N TYPE CODE TESTS RESULT OUT OF RANGE REFERENCE UNITS LAB L3100.5022 0-35 U/mL Normal CA 19-9 5 2261 Result Comment: Elliott ECLIA methodology LAB L3100.5025 Normal CA19-9 GRAPH Result Comment: Scanned image report available in EMR Performed By: #### L3100.2300, L3100.5000, L3100.5017, L3300.0700 #### [facility] (refer to report for specific site) refer to report for address and phone number AFP, TUMOR MARKER Collected: 06/02/2017 Status: F Source: [place] 9:48 AM [facility] [place] [facility] Order Comment: Is Patient ? N TYPE CODE TESTS RESULT OUT OF RANGE REFERENCE UNITS LAB L3300.0700 0.0-8.3 ng/mL Normal AFP TUMOR 4.7 2253 Result Comment: Elliott ECLIA methodology Performed By: #### L3100.2300, L3100.5000, L3100.5017, L3300.0700 #### [facility] (refer to report for specific site) refer to report for address and phone number MR-MRI ABD WITH AND Observed: 06/02/2017 Status: F Source: [place] W/O CONTRAST IMPORT 12:00 AM [facility] Images were obtained outside of [facility] [id number] GI Observed: 05/20/2017 Status: F Source: [facility] 9:38 AM [facility] REPOSITORY Patient: SUDHIR ENRIQUE SPECIMEN: [id number] Collection Date: 05/20/17937 Received: 05/25/17 Status: LEATHA Sahni DrMoses: Rafal Garnett MD Ph# Othr. Dr.: Rosas Wilkerson MD Material for Examination: A GASTRIC BX, R/O H. PYLORI PRE-OP DIAGNOSIS: MALIGNANT NEOPLASM BODY OF STOMACH POST-OP DIAGNOSIS: NONE GIVEN SURGICAL PROCEDURE: NONE GIVEN SPECIMEN COMMENTS: RECEIVED FROM [facility], [address] [place] [address] 2 Miguel SLIDES LABELED S18-070 KLAUSSUDHIR L1,L2 DIAGNOSIS A. Gastric biopsy: Gastric mucosa with mild chronic gastritis but without lymphoepithelial lesions, ulceration, dysplasia or goblet cell metaplasia. No H. pylori found on Miguel sections. Negative for malignancy. COMMENT The findings from the patient's endoscopic report reveal no mass lesion identified and only mild gastritis in the antrum with a small hiatal hernia and normal duodenum found. GROSS DESCRIPTION The specimen is grossed and processed at [facility] The following is their gross description: Received in formalin, labeled gastric are 2 irregular, soft, pink-loera fragments of tissue ranging in size from 0.1-0.3 cm. The specimen is entirely submitted in one cassette. MICROSCOPIC DESCRIPTION Four (2 routine and 2 deeper sections) Miguel stained slides examined. COPIES TO: Rosas Wilkerson MD, Zuo-Liang MD Signed Verified/Reviewed by CORNELIO EVERETT MD 05/30/17 This dictation was created using voice recognition software. Phonetic and/or minor grammatical errors may exist. [facility] NAME: KLAUSSUDHIR MATHEW Pathology and Laboratory Medicine UNIT#: [id number] LOC: [facility] Corn Cooker: Lubna Marin M.D. ROOM/BED: [facility] : 56 AGE/SEX: 56/F ORD.Grey Jameson MD END OF REPORT SCREENING MAMM (CAD), Observed: 05/19/2017 Status: F Source: [place] BILAT 6:53 AM [facility] [place] Imaging Services [address] [place] [address] SCREENING MAMM (CAD), BILAT MR#: [id number] Acct: [id number] Name: SUDHIR ENRIQUE Rep #: [id number] : 1960 F 56 From: Oniel Glaser MD PCP: Rosas Wilkerson Status: REG CLI Study: SCREENING MAMM (CAD), BILAT Date of Exam: 05/19/17 Exam# [id number] Ordering Dr: Joseph Beltran MD MAMMOGRAPHY - BILATERAL SCREENING REASON FOR EXAM: Female, 56 years old. Routine annual screening examination. PERTINENT HISTORY: Mother with breast cancer. TECHNIQUE: Digital bilateral breast jori (3D mammographic acquisition) in the CC and MLO projections. 2-D mediolateral oblique (MLO) and craniocaudad (CC) views of both breasts were obtained. CAD: Full Field Digital Mammography with Computer Added Detection was performed. COMPARISON: Comparison is made with prior examination dated February 05, 2016 and January 21, 2015. FINDINGS: Breast Composition: The breasts are heterogeneously dense, which may obscure small masses. There are no dominant masses or suspicious calcifications. No other significant abnormalities are identified. There has been no significant change since the prior study. HPBI/SCREENING MAMM (CAD), BILAT IMPRESSION: Stable bilateral screening mammogram. Yearly follow-up mammogram recommended. (A) ASSESSMENT CATEGORY: BIRADS Category 1: Negative. A letter regarding these results will be sent to the patient by the facility within 30 days. Approximately 10% of breast cancers are not detected by mammography. A normal mammogram should not delay biopsy of a clinically suspicious abnormality. [id number] Electronically Signed: Oniel Glaser MD at 9:10 EST Tel [phone], Service support , CC: Joseph Beltran MD; Rosas Wilkerson Polysomnographic Technologist: Signed ABDOMEN LIMITED Observed: 05/04/2017 Status: F Source: [place] 7:36 AM [facility] [place] Imaging Services [address] [place] [address] [place] [address] Abdomen Limited MR#: [id number] Acct: [id number] Name: SUDHIR ENRIQUE Rep #: [id number] : 1960 F 56 From: Marlon Main DO PCP: Rosas Wilkerson Status: REG CLI Study: Abdomen Limited Date of Exam: 05/04/17 Exam# [id number] Ordering Dr: Rosas Wilkerson MD STUDY: ABDOMINAL ULTRASOUND - RIGHT UPPER QUADRANT REASON FOR VISIT: Female, 56 years old. Pancreatitis TECHNIQUE: Ultrasound evaluation of the right upper quadrant was performed with real-time and static conn-scale imaging. TECHNICAL QUALITY: Limited. Examination limited by bowel gas. COMPARISON: 04/16/2017 FINDINGS: Liver: The liver measures 12.2 cm. There is increased echogenicity consistent with fatty infiltration. The bile ducts are within normal limits. There is hepatic color flow. The direction of portal flow is hepatopetal. There is a calcification within the left lobe of the liver measuring 1.8 x 1.3 x 0.7 cm. There is an irregular hypoechoic mass adjacent to the left lobe of the liver, measuring 4.9 x 4.3 x 4.6 cm. I believe this is present on the previous CT, and may arise exophytically from the anterior wall of the stomach. Gallbladder: Normal distended gallbladder. The gallbladder wall measures 2.4 mm. There is a negative sonographic Stevenson's sign. There is no pericholecystic fluid. There is a 3 mm the bladder polyp. Common Bile Duct (C.B.D.): The common bile duct measures 4 mm. Pancreas: There is limited visualization of the pancreatic tail. There is normal echogenicity of the pancreas. There is no demonstrated pancreatic mass or cyst. Right Kidney: Normal size of the right kidney. The right kidney measures 10.5 x 3 point review by 4.1 cm. Normal renal cortex. The right cortex measures 1.4 cm. There is a 6 mm hyperechoic focus within the right liver, suggesting an angiomyolipoma. There is no right hydronephrosis. US/Abdomen Limited IMPRESSION: Irregular low-attenuation mass jacent to the left lobe of the liver. Comparison with recent CT scan shows this region to possibly arise exophytically from the stomach. Further evaluation is warranted. This could potentially be evaluated with upper endoscopy. However, since the lesion appears exophytic, it may not be visible endoscopically. MRI or PET CT may be beneficial. Gallbladder polyp. 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 N.B. : The above information has been verbally conveyed by Marlon Main DO to Dr. Rosas Wilkerson, Referring Physician, on 05/04/2017 14:40:00 (ET). Electronically Signed: Marlon Main DO at 12:26 EST Tel , Service support , N.B. : The above information has been verbally conveyed by Marlon Main DO to Dr. Rosas Wilkerson, Referring Physician, on 05/04/2017 14:40:00 (ET). CC: Rosas Wilkerson Polysomnographic Technologist: Signed US-ABDOMEN LIMITED Observed: 05/04/2017 Status: F Source: [facility] 12:00 AM [facility] Images were obtained outside of [facility] [id number] ALLERGIES ALLERGIES DATE TYPE / CODE NAME / CODE REACTION SEVERITY SOURCE 04/16/2017 Drug No Known Unknown [facility] Allergy/416 Allergies/R34176 [facility] 107404(SNOM 0388(RXNORM) Repository ED CT) Drug NO KNOWN [facility] Class/53426 ALLERGIES [place] 1003(SNOMED Repository CT) ENCOUNTERS ENCOUNTERS ADMIT/DISCHARGE ACCOUNT ADMITTING ENCOUNTER LOCATION SOURCE NUMBER CLASS 04/13/2018 [id number] [facility] ing:LABSPEC Repository 11/01/2017/11/02/19 [id number] Ambulatory [address] [place] [facility] 10/12/2017/10/13/19 [id number] Ambulatory [address] [place] [facility] 10/11/2017/10/13/19 [id number] KAYA DAVIS, [address] [place] Rep[facility] 09/20/2017/09/21/19 [id number] Ambulatory [address] [place] [facility] 09/20/2017/09/21/19 [id number] Ambulatory [address] [place] [facility] 09/20/2017/09/21/19 [id number] Ambulatory [address] [place] [facility] 09/20/2017 [id number] Ambulatory [facility] [place] [facility] 09/20/2017/09/22/19 [id number] Ambulatory [address] [place] [facility] 09/20/2017 [id number] Ambulatory [facility] [place] [facility] 09/20/2017 [id number] Ambulatory [facility] 08/16/2017 [id number] Ambulatory [facility] [place] [facility] 07/13/2017/07/15/19 [id number] Ambulatory [address] [place] [facility] 07/13/2017 [id number] ANITA, Ambulatory [facility] [place] [facility] 06/30/2017/06/30/19 [id number] Ambulatory [address] [place] [facility] 06/30/2017/06/30/19 [id number] Ambulatory [address] [place] [facility] 06/02/2017 [id number] [facility] ing:MRI Repository 05/20/2017 [id number] Ambulatory [facility] g:H.SASC Repository 05/19/2017 [id number] [facility] ing:BI Repository 05/04/2017 [id number] Ambulatory [facility] ing:US Repository PAYERS PAYERS ENCOUNTER GUARANTOR PAYER SUBSCRIBER SOURCE 04/13/2018 ANDREW E Primary SUDHIR [place] [id number] Insurance:ANTHEMPolic SEYMOURDOB: Community EMERIL y [place]: [id number] [id number] Repository [address]Xyg: ([phone]) Date:6782-62-20[phone] () 511[address]RPM[place]AFQ, [place] [address]ZA: 04/13/2018 Secondary NOT GIVENUNK [place] Insurance:SELF PAY [facility] Number: Effective Repository Date:2018-04-13 06/02/2017 LEE Primary SUDHIR [place] [id number] Insurance:ANTHEMPolic SEYMOURDOB: Community EMERIL y [place]: [id number] [id number] Repository [address]Sov: (330) Date:5987-45-20[phone] () [id number], [place] [address]TM: 06/02/2017 Secondary NOT GIVENUNK [place] Insurance:SELF PAY [facility] Number: Effective Repository Date:2017-05-25 05/20/2017 SUDHIR Primary SUDHIR [facility] [id number] Insurance:[facility] Number: Repository [facility], [id number] [id number]: Date:2017-02-13 () 05/19/2017 ANDREW E Primary SUDHIR [place] [id number] Insurance:ANTHEMPolic SEYMOURDOB: Community EMERIL y Number: [id number] [id number] Repository [address]Koe: (330) Date:2738-28-69[phone] () [id number], [place] [address]UW: 05/19/2017 Secondary NOT GIVENUNK [place] Insurance:SELF PAY [facility] Effective Repository Date:2017-04-12 05/04/2017 LEE E Primary SUDHIR [place] [id number] Insurance:ANTHEMPolic SEYMOURDOB: Community EMERIL y Number: [id number] [id number] Repository [address]Rzk: 330) Date:3244-02-71[phone] () [id number], [place] [address]IZ: 05/04/2017 Secondary NOT GIVENUNK [place] Insurance:SELF PAY [facility] Number: Effective Repository Date:2017-04-28
== END ==
PROVIDERS: Family Provider Family Medicine; PCP Family Medicine; Visit Provider Obstetrics & Gynecology
DX: Z12.4 Encounter for screening for malignant neoplasm of cervix (principal); Z78.0 Asymptomatic menopausal state
CPT/HCPCS: 87624; 88175; G0145

== ENCOUNTER → 2018-06-13 07:22 | Outpatient (CLI) | payer BC, SELFPAY ==
--- NOTE | 2018-06-13 07:00 | BI_ITS ---
MAMMOGRAPHY - BILATERAL SCREENING REASON FOR EXAM: Female, 57 years old. Routine annual screening examination. PERTINENT HISTORY: Mother with breast cancer. TECHNIQUE: Digital bilateral breast jori (3D mammographic acquisition) in the CC and MLO projections. 2-D mediolateral oblique (MLO) and craniocaudad (CC) views of both breasts were obtained. CAD: Full Field Digital Mammography with Computer Added Detection was performed. COMPARISON: Comparison is made with prior study dated November 16, 2017 and February 05, 2016. FINDINGS: Breast Composition: The breasts are heterogeneously dense, which may obscure small masses. There are no dominant masses or suspicious calcifications. Stable small benign-appearing bilateral axillary lymph nodes. No other significant abnormalities are identified. There has been no significant change since the prior study. BI/SCREENING MAMM (CAD), BILAT IMPRESSION: Stable bilateral screening mammogram. Yearly follow-up mammogram recommended. (A) ASSESSMENT CATEGORY: BIRADS Category 2: Benign. A letter regarding these results will be sent to the patient by the facility within 30 days. Approximately 10% of breast cancers are not detected by mammography. A normal mammogram should not delay biopsy of a clinically suspicious abnormality. [id number] Electronically Signed: Oniel Glaser MD at 12:47 EST , Service support ,
[2018-06-13 08:54] LABS: Cholesterol 196 mg/dL (200); Glucose 93 mg/dL (74-106); High Density Lipoprotein 63 mg/dL; Triglycerides 93 mg/dL; Very Low Density Lipoprotein 19 mg/dL (5-40)
== END ==
PROVIDERS: Family Provider Family Medicine; PCP Family Medicine; Referring Provider Obstetrics & Gynecology; Visit Provider Obstetrics & Gynecology
DX: Z12.31 Encounter for screening mammogram for malignant neoplasm of breast (principal); Z00.00 Encounter for general adult medical examination without abnormal findings; Z13.220 Encounter for screening for lipoid disorders
CPT/HCPCS: 36415; 77063; 77067; 80061; 82947

== ENCOUNTER 2018-07-23 00:07 | Inpatient (IN) | payer BC, SELFPAY ==
[2018-07-23 00:07] VITALS: BP 110/77; PULSE 75; RESP 18; TEMP 36.6; O2SAT 97; BMI 30.9
--- NOTE | 2018-07-23 00:22 | CT_ITS ---
STUDY: CT ABDOMEN AND PELVIS WITH CONTRAST REASON FOR EXAM: Female, 57 years old. Upper abdominal pain and history of tumor removal RADIATION DOSAGE (If Supplied By Facility): CTDIvol = ( 13.62 ) mGy, DLP = ( 804.79 ) mGycm TECHNIQUE: Transaxial images were obtained from the dome of the diaphragm to the symphysis pubis without oral contrast. Isovue 300 100 IV was administered. Sagittal and coronal images were reconstructed. Individualized dose optimization techniques were used for this CT. COMPARISON: April 16, 2017 FINDINGS: The visualized lung bases are unremarkable. The visualized portions of the heart are within normal limits. Stable calcified left hepatic lobe granuloma. There are surgical clips in the gallbladder fossa consistent with a prior cholecystectomy. Normal spleen. Acute pancreatitis. No pancreatic pseudocysts are seen. Moderate peripancreatic fluid. Calcifications of chronic pancreatitis. Normal bilateral adrenal glands. Normal right kidney. Normal left kidney. Interval removal of gastric mass. Normal small intestine. There are multiple colonic diverticula consistent with diverticulosis. The appendix is visualized and appears normal. Normal abdominal aorta. Normal inferior vena cava. Normal retroperitoneum. Normal urinary bladder. Retroverted uterus. Calcified 14 mm uterine fibroid. Postoperative changes of the anterior abdominal wall. Normal osseous structures. CT/Abdomen/Pelvis W IV Cont ONLY IMPRESSION: Acute pancreatitis. Moderate peripancreatic fluid without evidence of well-formed pancreatic pseudocyst. No evidence of acute intestinal pathology or acute obstructive uropathy. Electronically Signed: Mayur Koch MD at 3:30 EDT Tel , Service support ,
[2018-07-23] MEDS: Ondansetron 4 MG/2 ML Vial IV ×2 (00:33→21:02)
[2018-07-23] MEDS: Ketorolac 30 MG/ML Syringe IV (00:33)
[2018-07-23] MEDS: 0.9% Normal Saline 1,000 ML 1000 ML IV (00:33)
[2018-07-23 00:53] LABS: Absolute Lymphocyte Count 2.57 X10^3/ul (0.83-4.51); Basophil# 0.03 X10^3/uL; Basophil% 0.3 % (0-1); Eosinophil# 0.16 X10^3/uL; Eosinophils% 1.5 % (0-5); Hematocrit 41.4 % (37-47); Hemoglobin 13.3 g/dl (12.0-15.0); Lymphocyte # 2.57 X10^3/ul (4.0); Mean Corp Hgb Conc 32.1 g/gl (32-36); Mean Corpuscular Hgb 29.7 pg (27.0-32.0); Mean Corpuscular Volume 92.4 fL (81-99); Mean Platelet Vol. 9.7 fl (6.2-12.0); Monocyte# 0.89 X10^3/uL; Monocyte% 8.3 % (0-10); Neutrophil # 7.03 X10^3/uL (2.7-7.7); Neutrophil % 65.7 % (47-70); Platelet Count 318 K/mm3 (150-450); RBC Distribution Width CV 13.7 % (11.6-14.6); RBC Distribution Width SD 45.6 fl (35.1-43.9); Red Blood Count 4.48 M/mm3 (4.2-5.4); White Blood Count 10.7 K/mm3 (4.4-11.0)
[2018-07-23 00:56] LABS: POSITIVE COUNT NO; POSITIVE DIFFERENTIAL NO; POSITIVE MORPHOLOGY NO
[2018-07-23 01:54] LABS: ALB/GLOB Ratio 0.9 RATIO (0.9-2.4); AST(SGOT) 37 U/L (15-37); Alanine Aminotransfer ALT/SGPT 53 U/L (13-56); Albumin, Serum 3.6 g/dL (3.2-5.0); Alkaline Phosphatase 114 U/L (45-117); Anion Gap 8 (5-15); BUN 22 mg/dL (7-18); BUN/Creat Ratio 26.2 RATIO (10-20); Calcium,Total 8.4 mg/dL (8.5-10.1); Chloride 105 mmol/L (98-107); Creatinine, Serum 0.84 mg/dL (0.55-1.02); EST Glomerular Filtration Rate 74 mL/min (>60); Est Glom Filt Rate - Afr Amer 89 mL/min (>60); Globulin 4.1 g/dL (2.2-4.2); Glucose 117 mg/dL (74-106); Potassium 3.3 mmol/L (3.5-5.1); Protein, Total 7.7 g/dL (6.4-8.2); Sodium Level 140 mmol/L (136-145)
[2018-07-23 03:35] LABS: Triglycerides 72 mg/dL
--- NOTE | 2018-07-23 03:45 | HP.PCM_ITS ---
Problem List (1) Acute recurrent pancreatitis Status: Acute History of Present Illness Date of Admission: 07/23/18 Chief Complaint: abdominal pain The patient is a 57 year old F with a significant history of previous pancreatitis; and schwannoma at the outer lining of the stomach status post schwannoma removal and cholecystectomy; who presented to the emergency department with 1 hour history of continuous excruciating sharp upper abdominal pain with some mild radiation to her back. Associated with her symptoms is nausea and vomiting. Her reported that patient looked pale and uncomfortable so he suspected that patient was having a recurrence of pancreatitis that the patient had 14 months ago. Patient reported that her abdomen was very tender at the time of examination by the emergency department doctor. As stated above, because patient had a radiographic evidence of a tumor; a schwannoma was eventually removed from her outer layer of her stomach. At that time of her schwannoma removal her gallbladder was also removed because of a history of pancreatitis; though it was no certain that she had gallstones. She denies alcoholism. She denies taking any [id number] medication except vitamin C that she took one time recently prophylactically to prevent infection since she had a coworker who was sick. At the emergency department patient was given Toradol, Zofran and normal saline IV. At the time of my examination patient reported that the Toradol and Zofran was effective and that she was no tenderness with palpation of her abdomen. Past Medical History Past Medical History (Chronic Problems): Chronic Problems BMI 30.0-30.9,adult (Chronic) Allergies No Known Allergies Allergy (Verified 07/23/18 00:09) Home Medications: Ambulatory Orders Medication Instructions Recorded NK 04/16/17 Surgical History: cholecystectomy, - - Schwannoma removal Psychiatric History: No pertinent psych hx Lives: With Family Smoking Status: Never smoker Alcohol: None - *Family History Maternal History Items: Heart Disease Paternal History Items: Heart Disease Review of Systems Constitutional: Denies: Chills, Fever, Weight Change HEENT: Denies: Head Aches, Sinus Congestion, Sinus Drainage Cardiovascular: Denies: Chest Pain, Palpitations Respiratory: Denies: Cough, Shortness of breath at rest, Sputum production Gastrointestinal: Reports: Abdominal Pain, Nausea, Vomiting Genitourinary: Denies: Dysuria Musculoskeletal: Denies: Joint Pain, Joint Tenderness Skin: Denies: Rash, Wounds Neurological: Denies: Numbness, Tingling, Focal weakness Psychiatric: Denies: Anxiety, Depression, Homicidal Ideations, Suicidal Ideations Hematologic/ Lymphatic: Denies: Easy Bruising, Easy Bleeding VTE Information - Inpt Only VTE Present on Admission: No VTE Mechan Device Prophylaxis: None VTE Pharm Prophylaxis ordered?: Yes Patient Problems: Active and Suspected Problems Acute recurrent pancreatitis (Acute) - Physical Exam General: Alert, Oriented x3, Cooperative HEENT: Atraumatic, PERRLA, EOMI, Normocephalic Neck: Supple, No JVD, Negative Carotid Bruits Lungs: Clear to auscultation, Normal air movement Cardiovascular: Regular rate, No murmurs Abdomen: Bowel Sounds Present, Soft, Non Tender Extremities: No edema, Capillary Refill Less than 3 Seconds Skin: No rashes, No breakdown Musculoskeletal: No Tenderness to Palpation of Joints or Extremities Neurological: Neuro grossly intact Psych/Mental Status: Normal Affect, Appropriate Vital Signs Temp Pulse Resp BP Pulse Ox 97.9 F 75 18 110/77 97 07/23/18 00:07 07/23/18 00:07 07/23/18 00:07 07/23/18 00:07 07/23/18 00:07 Oxygen Delivery Method Room Air Weight: 69.4 kg Body Mass Index (BMI) 30.9 Laboratory Tests Past 24 Hrs 07/23/18 07/23/18 07/23/18 00:32 00:32 00:32 WBC 10.7 RBC 4.48 Hgb 13.3 Hct 41.4 MCV 92.4 MCH 29.7 MCHC 32.1 RDW 13.7 RDW Differential 45.6 H Plt Count 318 MPV 9.7 Immature Gran % (Auto) 0.200 Neut % (Auto) 65.7 Lymph % (Auto) 24.0 [place] % (Auto) 8.3 Eos % (Auto) 1.5 Baso % (Auto) 0.3 Absolute Neuts (auto) 7.0 Absolute Lymphs (auto) 2.57 Total Counted Not Reportable Sodium 140 Potassium 3.3 L Chloride 105 Carbon Dioxide 27.0 Anion Gap 8 BUN 22 H Creatinine 0.84 Estim Creat Clear Calc 79.00 Est GFR (MDRD) Af Amer 89 Est GFR (MDRD) Non-Af 74 BUN/Creatinine Ratio 26.2 H Glucose 117 H Calcium 8.4 L Total Bilirubin 0.30 AST 37 ALT 53 Alkaline Phosphatase 114 Total Protein 7.7 Albumin 3.6 Globulin 4.1 Albumin/Globulin Ratio 0.9 Triglycerides 72 Lipase 72392 H Assessment/Plan All Active Problems Acute recurrent pancreatitis (Acute) BMI 30.0-30.9,adult (Acute) Pancreatitis (Acute) The patient is a 57 year old F with a significant history of previous pancreatitis; and schwannoma at the outer lining of the stomach status post schwannoma removal and cholecystectomy; who presented to the emergency department with 1 hour history of continuous excruciating sharp upper abdominal pain with some mild radiation to her back found to have radiographic evidence of pancreatitis. Acute recurrent pancreatitis Independent review of CT of the abdomen and pelvis shows inflamed pancreas. Lipase in the emergency department was 49,770. Received Toradol and Zofran at the emergency department which helped with her pain. We will continue patient on Toradol for moderate pain; morphine for severe pain and Zofran for nausea or vomiting. Received normal saline IV at emergency department. Because of concomitant hypokalemia we will continue aggressive IV hydration with lactated Ringer's with potassium We will keep patient n.p.o. Discussed with patient that if she feels she can tolerate food she should let nursing/medicine team know so that her diet may be advanced. Her calcium level is not elevated. Her triglyceride level is not elevated. Patient is status post cholecystectomy Patient does not drink alcohol. Consider workup for IgG4 related pancreatitis (autoimmune pancreatitis). Hypokalemia On presentation and potassium was 3.3. This likely due to vomiting. Lactated Ringer's with potassium as above. Trend BMP DVT prophylaxis Subcutaneous Lovenox ordered. Code Visit OBSV E&M: 52603 Initial observation care L3
--- NOTE | 2018-07-23 04:12 | ED.DCSUM_ITS ---
- ER Visit Summary Date of Service: 07/23/18 Chief Complaint: Abdominal pain History of Present Illness: The patient is a 57 F who presents with abdominal pain. This began acutely about 1 hour before presentation. It is located in the epigastric region. She rates it as 8 out of 10. She notes it was somewhat worse at home before presentation. She had one episode of nonbloody nonbilious emesis. This is similar to prior episode of pancreatitis. At that time it was attributed to likely gallstone pancreatitis. She has had a cholecystectomy since that time. She denies any fevers. She denies diarrhea. She is on no daily medications. She denies alcohol use. Physical Examination: Afebrile vitals normal Moist mucous membranes Heart regular rate and rhythm Lungs are clear The abdomen is soft she does have epigastric tenderness but no guarding no rebound Alert Test Results: Labs notable for potassium 3.3, glucose 117, lipase is 49,770. Hepatic function unremarkable. Triglycerides are [address] of the abdomen pelvis shows findings consistent with acute pancreatitis and pancreatic fluid no pseudocyst. Emergency Department Course and Treatment: She was treated here with IV fluids Toradol Zofran. She feels much better on reevaluation. I am uncertain of the etiology of her acute pancreatitis. She will need further evaluation and treatment. I spoke with the hospitalist who agrees to admit. Treatment Plan: [] Disposition: Admit Impression: Acute pancreatitis This note was generated with anywayany[employer] dictation software. It may contain incorrect words, spelling, and punctuation that were not noted in review of the chart prior to signing ED Disposition - Plan for ED Patient: Referrals: Rosas Wilkerson MD [Primary Care Provider] -
[2018-07-23 05:37] VITALS: BMI 30.3
[2018-07-23 05:40] VITALS: BMI 30.3
[2018-07-23 05:49] VITALS: BP 115/74; PULSE 66; RESP 18; TEMP 36.6; O2SAT 100
[2018-07-23 07:24] LABS: Magnesium 2.2 mg/dL (1.6-2.6)
[2018-07-23 07:57] VITALS: O2SAT 94
[2018-07-23] MEDS: Ketorolac 15 MG/ML Vial IV ×3 (08:32→21:02)
[2018-07-23] MEDS: 0.9% NaCl Peripheral Flush Adult/Peds IV ×3 (08:32→21:02)
[2018-07-23 08:36] VITALS: BP 120/68; PULSE 60; RESP 18; TEMP 36.6; O2SAT 100
--- NOTE | 2018-07-23 09:58 | PCM.PN.HOSP ---
Patient Problems: Active and Suspected Problems Acute recurrent pancreatitis (Acute) Subjective: Patient seen and examined. She was admitted in the early hours of this morning with complaint of abdominal pain and was found to have acute pancreatitis. He is currently n.p.o. and is receiving IV fluids. Patient states pain is much better this morning. She denies any fever chills, nausea vomiting or diarrhea. She had a previous episode of pancreatitis which was thought to be due to choledocholithiasis and she had a cholecystectomy at the same time as she had surgery for schwannoma found in her abdomen. Review of systems otherwise negative. Labs and vitals reviewed. Vitals/I&O's: Vital Signs Temp Pulse Resp BP Pulse Ox 97.8 F 60 18 120/68 100 07/23/18 08:36 07/23/18 08:36 07/23/18 08:36 07/23/18 08:36 07/23/18 08:36 Oxygen Delivery Method Room Air Weight: 150 lb 2.157 oz Body Mass Index (BMI) 30.3 General: Alert, Oriented x3, Cooperative, No apparent distress HEENT: Atraumatic, PERRLA, EOMI, Normocephalic Oral: Moist Mucosa Neck: Supple, No JVD, Negative Carotid Bruits Lungs: Clear to auscultation, Normal air movement, No rhonchi, No wheeze, No rales Cardiovascular: Regular rate, Regular Rhythm, Normal S1, Normal S2, No murmurs Abdomen: Bowel Sounds Present, Soft, Non Tender, Non-Distended, No Hepato-splenomegaly Extremities: No clubbing, No cyanosis, No edema, Capillary Refill Less than 3 Seconds Skin: No rashes, No breakdown Musculoskeletal: No Tenderness to Palpation of Joints or Extremities Lymphatic: No Cervical, Supraclavicular, or Inguinal Adenopathy Neurological: Cranial nerves II-XII grossly intact, Neuro grossly intact, Motor Exam 5/5 strength throughout Psych/Mental Status: Normal Affect, Appropriate, Alert and oriented to time, place, person, mood and affect Laboratory Results 07/23/18 00:10: Magnesium 2.2 07/23/18 00:32: WBC 10.7, RBC 4.48, Hgb 13.3, Hct 41.4, MCV 92.4, MCH 29.7, MCHC 32.1, RDW 13.7, RDW Differential 45.6 H, Plt Count 318, MPV 9.7, Immature Gran % (Auto) 0.200, Neut % (Auto) 65.7, Lymph % (Auto) 24.0, [place] % (Auto) 8.3, Eos % (Auto) 1.5, Baso % (Auto) 0.3, Absolute Neuts (auto) 7.0, Absolute Lymphs (auto) 2.57, Total Counted Not Reportable 07/23/18 00:32: Sodium 140, Potassium 3.3 L, Chloride 105, Carbon Dioxide 27.0, Anion Gap 8, BUN 22 H, Creatinine 0.84, Estim Creat Clear Calc 79.00, Est GFR (MDRD) Af Amer 89, Est GFR (MDRD) Non-Af 74, BUN/Creatinine Ratio 26.2 H, Glucose 117 H, Calcium 8.4 L, Total Bilirubin 0.30, AST 37, ALT 53, Alkaline Phosphatase 114, Total Protein 7.7, Albumin 3.6, Globulin 4.1, Albumin/Globulin Ratio 0.9, Lipase 23244 H 07/23/18 00:32: Triglycerides 72 Diagnostic Data Abdomen/Pelvis CT 07/23/18 00:22 IMPRESSION: Acute pancreatitis. Moderate peripancreatic fluid without evidence of well-formed pancreatic pseudocyst. No evidence of acute intestinal pathology or acute obstructive uropathy. Electronically Signed: Mayur Koch MD at 3:30 EDT Tel , Service support , Current Medications Enoxaparin Sodium (Lovenox) 40 mg SC DAILY@1000 DIANNA Potassium Chloride 40 meq/ (Lactated Ringer's) 1,020 mls @ 200 mls/hr IV .Q5H6M DIANNA Stop: 07/23/18 15:43 Last Admin: 07/23/18 06:01 Dose: 200 mls/hr Ketorolac Tromethamine (Toradol) 15 mg IV Q6H PRN PRN PRN Reason: MODERATE PAIN (4-5/10) Stop: 07/28/18 06:01 Last Admin: 07/23/18 08:32 Dose: 15 mg Magnesium Hydroxide (Milk Of Magnesia) 30 ml PO DAILY PRN PRN PRN Reason: Constipation Morphine Sulfate () 2 mg IV Q4H PRN PRN PRN Reason: SEVERE PAIN (6-02/22) Ondansetron HCl (Zofran) 4 mg IV Q6H PRN PRN PRN Reason: NAUSEA/VOMITING Sodium Chloride () 5 - 15 ml IV UD PRN PRN Reason: SALINE FLUSH Last Admin: 07/23/18 08:32 Dose: 10 ml Medical Necessity - Tobacco Use Smoking Status: Never smoker Assessment/Plan All Active Problems Acute recurrent pancreatitis (Acute) BMI 30.0-30.9,adult (Acute) Pancreatitis (Acute) 1. Acute pancreatitis cause of pancreatitis is not clear has no hypercalcemia, hypertriglyceridemia, and is s/p cholecystectomy and also doesnt drink alcohol pain is much better CT abdomen confirmed acute pancreatitis; lipase was also 64890 currently NPO; will start on clear liquid diet and advance as tolerated. if she continues having recurrent acute pancreatitis, will benefit from workup for autoimmune pancreatitis. On IV morphine as needed for pain IV Zofran 2. Hypokalemia: K is 3.3. being replaced. Will monitor DVT prophylaxis: Lovenox Code Visit OBSV E&M: 09726 Subsequent observation care L3
--- NOTE | 2018-07-23 10:07 | PN_ITS ---
Patient Problems: Active and Suspected Problems Acute recurrent pancreatitis (Acute) Subjective: Patient seen and examined. She was admitted in the early hours of this morning with complaint of abdominal pain and was found to have acute pancreatitis. He is currently n.p.o. and is receiving IV fluids. Patient states pain is much better this morning. She denies any fever chills, nausea vomiting or diarrhea. She had a previous episode of pancreatitis which was thought to be due to choledocholithiasis and she had a cholecystectomy at the same time as she had surgery for schwannoma found in her abdomen. Review of systems otherwise negative. Labs and vitals reviewed. Vitals/I&O's: Vital Signs Temp Pulse Resp BP Pulse Ox 97.8 F 60 18 120/68 100 07/23/18 08:36 07/23/18 08:36 07/23/18 08:36 07/23/18 08:36 07/23/18 08:36 Oxygen Delivery Method Room Air Weight: 150 lb 2.157 oz Body Mass Index (BMI) 30.3 General: Alert, Oriented x3, Cooperative, No apparent distress HEENT: Atraumatic, PERRLA, EOMI, Normocephalic Oral: Moist Mucosa Neck: Supple, No JVD, Negative Carotid Bruits Lungs: Clear to auscultation, Normal air movement, No rhonchi, No wheeze, No rales Cardiovascular: Regular rate, Regular Rhythm, Normal S1, Normal S2, No murmurs Abdomen: Bowel Sounds Present, Soft, Non Tender, Non-Distended, No Hepato- splenomegaly Extremities: No clubbing, No cyanosis, No edema, Capillary Refill Less than 3 Seconds Skin: No rashes, No breakdown Musculoskeletal: No Tenderness to Palpation of Joints or Extremities Lymphatic: No Cervical, Supraclavicular, or Inguinal Adenopathy Neurological: Cranial nerves II-XII grossly intact, Neuro grossly intact, Motor Exam 5/5 strength throughout Psych/Mental Status: Normal Affect, Appropriate, Alert and oriented to time, place, person, mood and affect Laboratory Results 07/23/18 00:10: Magnesium 2.2 07/23/18 00:32: WBC 10.7, RBC 4.48, Hgb 13.3, Hct 41.4, MCV 92.4, MCH 29.7, MCHC 32.1, RDW 13.7, RDW Differential 45.6 H, Plt Count 318, MPV 9.7, Immature Gran % (Auto) 0.200, Neut % (Auto) 65.7, Lymph % (Auto) 24.0, [place] % (Auto) 8.3, Eos % (Auto) 1.5, Baso % (Auto) 0.3, Absolute Neuts (auto) 7.0, Absolute Lymphs (auto) 2.57, Total Counted Not Reportable 07/23/18 00:32: Sodium 140, Potassium 3.3 L, Chloride 105, Carbon Dioxide 27.0, Anion Gap 8, BUN 22 H, Creatinine 0.84, Estim Creat Clear Calc 79.00, Est GFR (MDRD) Af Amer 89, Est GFR (MDRD) Non-Af 74, BUN/Creatinine Ratio 26.2 H, Glucose 117 H, Calcium 8.4 L, Total Bilirubin 0.30, AST 37, ALT 53, Alkaline Phosphatase 114, Total Protein 7.7, Albumin 3.6, Globulin 4.1, Albumin/Globulin Ratio 0.9, Lipase 02768 H 07/23/18 00:32: Triglycerides 72 Diagnostic Data Abdomen/Pelvis CT 07/23/18 00:22 IMPRESSION: Acute pancreatitis. Moderate peripancreatic fluid without evidence of well-formed pancreatic pseudocyst. No evidence of acute intestinal pathology or acute obstructive uropathy. Electronically Signed: Mayur Koch MD at 3:30 EDT Tel , Service support , Current Medications Enoxaparin Sodium (Lovenox) 40 mg SC DAILY@1000 DIANNA Potassium Chloride 40 meq/ (Lactated Ringer's) 1,020 mls @ 200 mls/hr IV .Q5H6M DIANNA Stop: 07/23/18 15:43 Last Admin: 07/23/18 06:01 Dose: 200 mls/hr Ketorolac Tromethamine (Toradol) 15 mg IV Q6H PRN PRN PRN Reason: MODERATE PAIN (4-5/10) Stop: 07/28/18 06:01 Last Admin: 07/23/18 08:32 Dose: 15 mg Magnesium Hydroxide (Milk Of Magnesia) 30 ml PO DAILY PRN PRN PRN Reason: Constipation Morphine Sulfate () 2 mg IV Q4H PRN PRN PRN Reason: SEVERE PAIN (6-02/22) Ondansetron HCl (Zofran) 4 mg IV Q6H PRN PRN PRN Reason: NAUSEA/VOMITING Sodium Chloride () 5 - 15 ml IV UD PRN PRN Reason: SALINE FLUSH Last Admin: 07/23/18 08:32 Dose: 10 ml Medical Necessity - Tobacco Use Smoking Status: Never smoker Assessment/Plan All Active Problems Acute recurrent pancreatitis (Acute) BMI 30.0-30.9,adult (Acute) Pancreatitis (Acute) 1. Acute pancreatitis * cause of pancreatitis is not clear * has no hypercalcemia, hypertriglyceridemia, and is s/p cholecystectomy and also doesnt drink alcohol * pain is much better * CT abdomen confirmed acute pancreatitis; lipase was also 06502 * currently NPO; will start on clear liquid diet and advance as tolerated. * if she continues having recurrent acute pancreatitis, will benefit from workup for autoimmune pancreatitis. * On IV morphine as needed for pain IV Zofran * 2. Hypokalemia: K is 3.3. being replaced. Will monitor DVT prophylaxis: Lovenox Code Visit OBSV E&M: 69446 Subsequent observation care L3
[2018-07-23] MEDS: Enoxaparin 40 MG/0.4 ML Syringe SC (10:25)
[2018-07-23 14:37] VITALS: BP 116/67; PULSE 67; RESP 16; TEMP 36.8; O2SAT 100
[2018-07-23 21:10] VITALS: BP 122/73; PULSE 73; RESP 18; TEMP 37.1; O2SAT 95
[2018-07-24 03:55] VITALS: BP 112/60; PULSE 86; RESP 16; TEMP 36.9; O2SAT 94
[2018-07-24 06:31] LABS: Anion Gap 7 (5-15); BUN 7 mg/dL (7-18); BUN/Creat Ratio 8.8 RATIO (10-20); Calcium,Total 8.3 mg/dL (8.5-10.1); Chloride 109 mmol/L (98-107); EST Glomerular Filtration Rate 78 mL/min (>60); Est Glom Filt Rate - Afr Amer 94 mL/min (>60); Glucose 101 mg/dL (74-106); Potassium 3.9 mmol/L (3.5-5.1); Sodium Level 141 mmol/L (136-145)
[2018-07-24 07:39] LABS: Lipase 6373 U/L (73-393)
[2018-07-24 07:58] VITALS: O2SAT 95
[2018-07-24 09:00] VITALS: PULSE 76
[2018-07-24] MEDS: Enoxaparin 40 MG/0.4 ML Syringe SC (09:12)
[2018-07-24] MEDS: Acetaminophen 325 MG Tablet 650 MG PO (10:20)
[2018-07-24 10:23] VITALS: BP 112/71; PULSE 70; RESP 16; TEMP 36.8; O2SAT 98
--- NOTE | 2018-07-24 11:30 | CASEMGMT ---
RN EDGAR Face to Face with patient for initial transition planning/care coordination assessment. RN CM introduced self and role at [facility]. Patient lying in bed, alert and oriented, at bedside. Patient willing to participate in assessment and is able to answer all questions appropriately. Care providers, pharmacy, and demographics verified. Patient wishes to discharge home, denies need for home health at this time. Patient states she has no further needs or concerns at this time. CM to follow for discharge planning needs that may arise. PCP: Rhea Specialists: None Preferred Pharmacy: [facility] Insurance: [employer] Prescription Benefit: [employer] Living Will/HPOA: Yes, Andrew Lopez LNOK: Living Arrangements: Patient lives with in a condo. Patient is independent at home. Transportation: self/ DME/HHC: Patient denies need for DME, denies DME in the home. No previous HHC Disposition Plan: Patient to discharge home with family support and follow-up plans in place. Sandra MANJARREZ, RN, CM
--- NOTE | 2018-07-24 14:01 | DS.PCM_ITS ---
Discharge Date and Diagnosis - Problem List Patient Problems: Active and Suspected Problems Acute recurrent pancreatitis (Acute) Date of Admission: 07/23/18 Date of Discharge: 07/24/18 - Primary Discharge Diagnosis Active and Suspected Problems Acute recurrent pancreatitis (Acute) - Secondary Discharge Diagnosis Chronic Problems BMI 30.0-30.9,adult (Chronic) Hospital Course and Treatment Imaging Results: Diagnostic Data Abdomen/Pelvis CT 07/23/18 00:22 IMPRESSION: Acute pancreatitis. Moderate peripancreatic fluid without evidence of well-formed pancreatic pseudocyst. No evidence of acute intestinal pathology or acute obstructive uropathy. Electronically Signed: Mayur Koch MD at 3:30 EDT Tel , Service support , Operations: None Procedures: None Summary of Care Provided: The patient is a 57 year old F with a history of acute pancreatitis 1 year ago and status post cholecystectomy. She was admitted through the ED with a complaint of excruciating epigastric abdominal pain which radiated to her back with assisted nausea and vomiting. About a year ago, she presented with similar abdominal pain and had tenderness in the epigastric region and CT of the abdomen done showed schwannoma of the outer layer of her stomach which was eventually removed. At the time of the schwannoma surgery, her gallbladder was also removed on account of her history of pancreatitis though she had a history of gallstones. She also denied alcohol intake and denied any new medication usage. CT of the abdomen confirmed inflamed pancreas. Lipase was also on 49,770. She was admitted and managed for acute pancreatitis. Calcium and triglycerides were not elevated and so because of pancreatitis was no clearly ascertained during this admission. Patient was initially kept n.p.o. and given IV morphine as needed for pain. Symptoms resolved and abdominal pain totally resolved. She tolerated a clear liquid diet and was advanced to full liquid diet which she also tolerated. Lipase trended down the next day to around 6000. Patient remained stable and was discharged home on 07/24/2018. She was encouraged to keep very well-hydrated. She is also to follow-up with her primary care doctor for initiation of workup for possible autoimmune pancreatitis. Patient seen and examined prior to discharge. She had no complaints and felt well. No point review of systems otherwise negative. Labs and vitals reviewed. Home medication reviewed and reconciled. On examination Vital Signs Height 4 ft 11 in Weight: 150 lb 2.157 oz Weight in Pounds 150.1 lbs Pulse Ox 98 Temperature 98.0 F Pulse Rate 75 Respiratory Rate 18 Blood Pressure 106/75 Blood Pressure Position Sitting [] General: Alert, Oriented x3, Cooperative, No apparent distress HEENT: Atraumatic, PERRLA, EOMI, Normocephalic Oral: Moist Mucosa Neck: Supple, No JVD, Negative Carotid Bruits Lungs: Clear to auscultation, Normal air movement, No rhonchi, No wheeze, No rales Cardiovascular: Regular rate, Regular Rhythm, Normal S1, Normal S2, No murmurs Abdomen: Bowel Sounds Present, Soft, Non Tender, Non-Distended, No Hepato- splenomegaly Extremities: No clubbing, No cyanosis, No edema, Capillary Refill Less than 3 Seconds Skin: No rashes, No breakdown Musculoskeletal: No Tenderness to Palpation of Joints or Extremities Lymphatic: No Cervical, Supraclavicular, or Inguinal Adenopathy Neurological: Cranial nerves II-XII grossly intact, Neuro grossly intact, Motor Exam 5/5 strength throughout Psych/Mental Status: Normal Affect, Appropriate, Alert and oriented to time, place, person, mood and affect Patient Problems: Active and Suspected Problems Acute recurrent pancreatitis (Acute) - Physical Exam Vital Signs Temp Pulse Resp BP Pulse Ox 98.2 F 70 16 112/71 98 07/24/18 10:23 07/24/18 10:23 07/24/18 10:23 07/24/18 10:23 07/24/18 10:23 Oxygen Delivery Method Room Air Weight: 150 lb 2.157 oz Body Mass Index (BMI) 30.3 Intake and Output for Last 24 Hours 07/22/18 07/23/18 07/24/18 22:59 23:59 23:59 Intake Total 910 / 910 Output Total 2049 Balance -1140 / -1140 Laboratory Tests Past 24 Hrs 07/24/18 07/24/18 05:24 05:24 Sodium 141 Potassium 3.9 Chloride 109 H Carbon Dioxide 25.0 Anion Gap 7 BUN 7 Creatinine 0.80 Estim Creat Clear Calc 81.40 Est GFR (MDRD) Af Amer 94 Est GFR (MDRD) Non-Af 78 BUN/Creatinine Ratio 8.8 L Glucose 101 Calcium 8.3 L Lipase 6373 H Discharge Diet: Low fat/ Low Cholesterol Discharge Activity: Return to Normal Activity Weight Bearing Status: Weight bearing as tolerated Call your doctor if you observe: Fever of 101 or Higher, - - worsening abdominal pain Home Medications: Medications to take at Discharge Acetaminophen [Tylenol Tablet] 650 mg PO Q6H PRN PRN #30 tablet 07/24/18 Following Prescrptions Were Given to Patient: Acetaminophen [Tylenol Tablet] 650 mg PO Q6H PRN PRN #30 tablet PRN Reason: Pain Primary Care Physician: Rosas Wilkerson MD [Primary Care Provider] - Please follow up with your Primary Care Physician in: one week Patient Instructions: Discharge Instructions for Acute Pancreatitis Disposition: Home Minutes spent on discharge:: 40 Patient Condition:: Stable Medical Necessity - Tobacco Use Smoking Status: Never smoker Meaningful Use Info Meaningful Use Diagnoses (Choose all that apply): None applicable Code Visit Inpatient E&M: 98418 Disch Hosp
--- NOTE | 2018-07-24 14:01 | DCINST_ITS ---
- Discharge Diagnoses Current Active Problems: Current Active and Chronic Problems Acute recurrent pancreatitis (Acute) You will use the following diet at home:: No restrictions Your food should be the consistency of: Regular Your liquids should be the consistency of: Regular/Thin Discharge Activity: Return to Normal Activity Weight Bearing Status: Weight bearing as tolerated Call your doctor if you observe: Fever of 101 or Higher, - - worsening abdominal pain Instructions: Discharge Instructions for Acute Pancreatitis Additional Instructions: keep well hydrated, and drink 2-3L of fluids daily Allergies/Adverse Reactions: Allergies No Known Allergies Allergy (Verified 07/23/18 00:09) Medications to take at Discharge Acetaminophen [Tylenol Tablet] 650 mg PO Q6H PRN PRN #30 tablet 07/24/18 The following prescriptions were given: Acetaminophen [Tylenol Tablet] 650 mg PO Q6H PRN PRN #30 tablet PRN Reason: Pain Primary Care Physician: Rosas Wilkerson MD [Primary Care Provider] - Please follow up with your Primary Care Physician in: one week Test Results: Test results from this visit will be discussed in further detail at your follow- up appointment, if applicable. Proposed Discharge Date: 07/24/18
[2018-07-24 14:34] VITALS: BP 106/75; PULSE 75; RESP 18; TEMP 36.7; O2SAT 98
== END 2018-07-24 14:40 | disposition home or self-care (01) | DRG 440 ==
LOC: ED 03:50 → MS3 07:04
PROVIDERS: Admitting Provider Hospitalist; Emergency Provider Emergency Medicine; Family Provider Family Medicine; PCP Family Medicine; Visit Provider Student in an Organized Health Care Education/Training Program
DX: K85.90 Acute pancreatitis without necrosis or infection, unspecified (principal); E87.6 Hypokalemia; Z90.49 Acquired absence of other specified parts of digestive tract
CPT/HCPCS: 36415; 74177; 80048; 80053; 83690; 83735; 84478; 85025; 99282; J7030; J7120; Q9967; A4216; J2405

== ENCOUNTER → 2018-09-05 07:23 | Outpatient (CLI) | payer BC, SELFPAY ==
--- NOTE | 2018-09-05 07:28 | US_ITS ---
STUDY: ABDOMINAL ULTRASOUND - RIGHT UPPER QUADRANT REASON FOR VISIT: Female, 57 years old. Midabdominal pain. Status post pancreatitis episode 2018. TECHNIQUE: Ultrasound evaluation of the right upper quadrant was performed with real-time and static conn-scale imaging. TECHNICAL QUALITY: Adequate. COMPARISON: May 04, 2017. FINDINGS: Liver: The liver measures 12.3 cm. There is a 1.5 x 1.8 x 0.9 cm significantly echogenic posterior shadowing foci within the posterior basal lobe. The bile ducts are within normal limits. There is hepatic color flow. The direction of portal flow is hepatopetal. There is no demonstrated mass lesion. Gallbladder: The patient is status post cholecystectomy. Common Bile Duct (C.B.D.): The common bile duct measures 5.0 mm. Pancreas: Normal size of the head, body and tail of the pancreas. There is normal echogenicity of the pancreas. There is no demonstrated pancreatic mass or cyst. Right Kidney: Normal size of the right kidney. The right kidney measures 10.4 x 4.4 x 4.6 cm. Normal renal cortex. The right cortex measures 1.8 cm. There is a uniformly echogenic round focus within the right cortex measuring 7 mm. There is no right hydronephrosis. US/Abdomen Limited IMPRESSION: 1.8 cm echogenic posterior shadowing focus within the liver may represent sequela from prior trauma or prior surgery. Status post cholecystectomy without or intrahepatic or extrahepatic biliary ductal dilatation. 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 Electronically Signed: Michael Logan MD at 15:58 EDT , Service support ,
== END ==
PROVIDERS: Family Provider Family Medicine; PCP Family Medicine
DX: R10.9 Unspecified abdominal pain (principal); R53.83 Other fatigue
CPT/HCPCS: 76705

== ENCOUNTER → 2019-06-15 07:49 | Outpatient (CLI) | payer BC, SELFPAY ==
--- NOTE | 2019-06-14 17:07 | BI_ITS ---
MAMMOGRAPHY - BILATERAL SCREENING REASON FOR EXAM: Female, 58 years old. Routine annual screening examination. PERTINENT HISTORY: Mother with breast cancer. TECHNIQUE: Digital bilateral breast gera (3D mammographic acquisition) in the CC and MLO projections. 2-D mediolateral oblique (MLO) and craniocaudad (CC) views of both breasts were obtained. CAD: Full Field Digital Mammography with Computer Added Detection was performed. COMPARISON: Comparison is made with prior examination dated June 13, 2018 and May 19, 2017. FINDINGS: Breast Composition: The breasts are heterogeneously dense, which may obscure small masses. There are no dominant masses or suspicious calcifications. There is a 9.6 mm x 7 mm nodular density in the lateral aspect of the right breast as seen on the craniocaudad view. Correlation with ultrasound is recommended. Small bilateral benign appearing axillary lymph nodes. No other significant abnormalities are identified. BI/SCREEN MAMM (CAD) W/GERA BILAT IMPRESSION: 9.6 mm x 7 mm well-defined nodule in the lateral aspect the right breast as in the craniocaudad view. Correlation with ultrasound is recommended. ASSESSMENT CATEGORY: BIRADS Category 0: Incomplete. Need additional imaging evaluation. A letter regarding these results will be sent to the patient by the facility within 30 days. Approximately 10% of breast cancers are not detected by mammography. A normal mammogram should not delay biopsy of a clinically suspicious abnormality. [id number] Electronically Signed: Oniel Glaser, at 8:58 EST , Service support ,
== END ==
PROVIDERS: Family Provider Family Medicine; PCP Family Medicine; Referring Provider Obstetrics & Gynecology; Visit Provider Obstetrics & Gynecology
DX: Z12.31 Encounter for screening mammogram for malignant neoplasm of breast (principal); Z80.3 Family history of malignant neoplasm of breast
CPT/HCPCS: 77063; 77067

== ENCOUNTER → 2019-06-20 07:43 | Outpatient (CLI) | payer BC, SELFPAY ==
--- NOTE | 2019-06-20 07:45 | US_ITS ---
STUDY: ULTRASOUND BREAST - RIGHT REASON FOR EXAM: Female, 58 years old. Abnormal screening mammogram. TECHNIQUE: Axial and longitudinal images of the RIGHT breast were performed with a high resolution ultrasound transducer. # OF IMAGES: 49 COMPARISON: Comparison is made with prior mammogram dated June 14, 2019 and prior ultrasound of the right breast dated March 27, 2015. FINDINGS: RIGHT Breast: There is a stable 8 mm x 4 mm x 6 mm cyst with the septation and debris at the 12:00 position of the breast at 2 cm from nipple. There is also evidence of a 2 mm x 4 mm x 2 mm cyst at the 10:00 position of the breast at 4 cm from nipple. At the 11:00 clock position of the breast at 4 cm from nipple, there is evidence of a 9 mm x 7 mm x 6 mm slightly irregular hypoechoic nodule with the cystic changes within it. A biopsy is recommended. US/Breast Limited Unilateral IMPRESSION: Tiny cysts as described. Slightly irregular 9 mm x 7 mm x 6 mm hypoechoic solid nodule at the 11:00 position of the breast at 4 cm from nipple. Tissue diagnosis is recommended. ASSESSMENT CATEGORY: BIRADS Category 4: Suspicious - Biopsy Should Be Considered. A letter regarding these results will be sent to the patient by the facility within 30 days. Electronically Signed: Oniel Glaser, at 16:44 EST , Service support ,
== END ==
PROVIDERS: PCP Family Medicine; Referring Provider Obstetrics & Gynecology; Visit Provider Obstetrics & Gynecology
DX: R92.2 Inconclusive mammogram (principal)
CPT/HCPCS: 76642

== ENCOUNTER → 2019-07-05 11:43 | Outpatient (CLI) | payer BC, SELFPAY ==
[2019-06-22 14:43] VITALS: BMI 30.3
--- NOTE | 2019-07-05 11:46 | US_ITS ---
ULTRASOUND GUIDED CORE BIOPSY REASON FOR EXAM: Female, 58 years old. Rt breast masa PERTINENT HISTORY: Suspicious nodule at the 10:00 position of the breast of 4 cm from the nipple. COMPARISON: None. TECHNIQUE: (All elements of maximal sterile barrier technique followed, including US elements as applicable) Under direct sonographic guidance, the surgeon performed 3 core biopsies of the spicular nodule at the 11:00 position of the breast at 4 cm from nipple. US/US Breast Biopsy 1st Lesion IMPRESSION: Ultrasound guided core biopsy of a mass in the RIGHT breast at the 11:00 position breast at 4 cm from the nipple without complication. Electronically Signed: Oniel Glaser, at 13:36 EST , Service support ,
--- NOTE | 2019-07-05 12:30 | BRBX_PTH ---
PATIENT: SUDHIR ENRIQUE LOC: [facility] U#:[id number] AGE/SX: 64/F ROOM: RE07/05/[address]: Dr. Jacinto Mendoza MD : 1960 BED: DIS: SPEC #: [id number] RECD: 07/05/19 12:55 STATUS: LEATHA AAYUSH #: [id number] MICHELLE: 07/05/19 12:[address]: Jacinto Mendoza DEPT: SURGICAL PATHOLOGY RECD BY: Johnny Toth ENTERED: 07/05/19 13:12 SP TYPE: BREAST BX OTHR DR: Dr. Rosas Wilkerson MD Tissues: Right breast, NOS Procedures: Surgery Specimen Level IV HEADER OPERATION: Right breast biopsy PRE-OP DIAGNOSIS: Right breast mass TISSUE SUBMITTED: Right breast ISCHEMIC TIME: 30 seconds FIXATION TIME: 7 hours MICROSCOPIC DIAGNOSIS Right breast mass, core biopsy: Fragments of benign breast tissue with focal minimal fibrocystic changes. Focal microcalcifications. Negative for atypia or malignancy. See comment. MICH:[email or web address] 07/06/19 COMMENT Correlation with clinical, radiologic findings and appropriate follow up are necessary. MICROSCOPIC DESCRIPTION Slides are reviewed. GROSS DESCRIPTION Received in fixative is one container labeled with the patient's name and designated right breast. The specimen consists of multiple elongated fragments of loera-yellow fibroadipose tissue that in aggregate measure 2 x 1 x 0.1 cm. The entire specimen is submitted in one cassette. / MICH:nicolasa 07/05/19 TC:5 CPT: 19295
--- NOTE | 2019-07-05 12:45 | PCM.OPRPT ---
Problem List (1) Breast mass, right Status: Acute Report of Operation Date of Procedure: 07/05/19 Pre-Operative Diagnosis: Right breast mass Post-Operative Diagnosis: Same Surgery/Procedure Performed:: Ultrasound-guided right breast mass core needle biopsy Specimen's removed: Right breast biopsy Description of Procedure: Patient's right breast was prepped and draped in usual sterile fashion. Ultrasound was used to localize the mass. A small wheal was made with local anesthetic and the deeper tissue was anesthetized as well. A small cristela was made in the skin with a scalpel. Under ultrasound guidance the mammotome needle was placed inferior to the mass and several biopsies were taken. The needle was then removed and a titanium clip was placed under ultrasound into the mass. Pressure was held over the incision and a Steri-Strip and bandage were placed over the incision. Patient tolerated the procedure well.
== END ==
PROVIDERS: PCP Family Medicine; Referring Provider Surgery; Visit Provider Surgery
DX: N63.11 Unspecified lump in the right breast, upper outer quadrant (principal); R92.0 Mammographic microcalcification found on diagnostic imaging of breast
CPT/HCPCS: 19083; 88305

== ENCOUNTER → 2019-12-18 13:25 | Outpatient (CLI) | payer BC, SELFPAY ==
[2019-06-22 14:43] VITALS: BMI 30.3
--- NOTE | 2019-12-18 13:26 | BI_ITS ---
MAMMOGRAPHY - UNILATERAL DIAGNOSTIC: RIGHT BREAST REASON FOR EXAM: Female, 58 years old. Six-month follow-up for right ultrasound-guided biopsy. PERTINENT HISTORY: Mother with breast cancer. TECHNIQUE: Digital unilateral breast jori (3D mammographic acquisition) in the CC and MLO projections. 2-D mediolateral oblique (MLO) and craniocaudad (CC) views of both breasts were obtained. CAD: Full Field Digital Mammography with Computer Added Detection was performed. COMPARISON: Comparison is made with prior study dated 06/14/2019. FINDINGS: Breast Composition: The breasts are heterogeneously dense, which may obscure small masses. There are no dominant masses or suspicious calcifications. A tissue clip marker is seen in the anterior upper lateral aspect of the right breast. Stable benign-appearing left axillary lymph nodes. No other significant abnormalities are identified. There has been no significant change since the prior study. BI/DIAG MAMM W/CAD, UNILAT IMPRESSION: Stable unilateral diagnostic mammogram. One year follow-up mammogram recommended. (A) ASSESSMENT CATEGORY: BIRADS Category 2: Benign. A letter regarding these results will be sent to the patient by the facility within 30 days. Approximately 10% of breast cancers are not detected by mammography. A normal mammogram should not delay biopsy of a clinically suspicious abnormality. Electronically Signed: Oniel Glaser, at 15:03 EDT , Service support ,
--- NOTE | 2019-12-18 13:56 | US_ITS ---
STUDY: ULTRASOUND BREAST - RIGHT REASON FOR EXAM: Female, 58 years old. Post biopsy follow-up. TECHNIQUE: Axial and longitudinal images of the RIGHT breast were performed with a high resolution ultrasound transducer. # OF IMAGES: 17 COMPARISON: Comparison is made with prior ultrasound of the right breast dated 06/20/2019. FINDINGS: RIGHT Breast: There is a 6 mm x 7 mm x 4 mm stable hypoechoic nodule at the 11 o''clock position of the breast at 4 cm from nipple. This was biopsied previously. Stable subcentimeters cysts at the 12 o''clock position and 10 o''clock position of the breast. US/Breast Limited Unilateral IMPRESSION: Stable examination. The previously seen nodule at the 11 o''clock position of the breast at 4 cm from nipple as been biopsied. ASSESSMENT CATEGORY: BIRADS Category 2: Benign. A letter regarding these results will be sent to the patient by the facility within 30 days. Electronically Signed: Oniel Glaser, at 15:49 EDT , Service support ,
== END ==
PROVIDERS: PCP Family Medicine; Referring Provider Surgery; Visit Provider Surgery
DX: N63.11 Unspecified lump in the right breast, upper outer quadrant (principal); Z80.3 Family history of malignant neoplasm of breast
CPT/HCPCS: 76642; 77061; 77065; G0279

== ENCOUNTER → 2020-05-07 | Outpatient (CLI) | payer BC, SELFPAY ==
[2019-12-21 13:00] VITALS: BMI 30.3
[2020-05-13 16:19] LABS: HPV Reflexed? NOT INDICATED
== END | disposition home or self-care (01) ==
LOC: LABSPEC 13:04
PROVIDERS: PCP Family Medicine; Visit Provider Obstetrics & Gynecology
DX: Z12.4 Encounter for screening for malignant neoplasm of cervix (principal)
CPT/HCPCS: 88175; G0145

== ENCOUNTER → 2020-06-17 07:06 | Outpatient (CLI) | payer BC, SELFPAY ==
[2019-12-21 13:00] VITALS: BMI 30.3
--- NOTE | 2020-06-17 07:07 | BI_ITS ---
MAMMOGRAPHY - BILATERAL SCREENING REASON FOR EXAM: Female, 59 years old. Routine annual screening examination. PERTINENT HISTORY: Mother with breast cancer. Prior right ultrasound-guided breast biopsy. TECHNIQUE: Digital bilateral breast gera (3D mammographic acquisition) in the CC and MLO projections. 2-D mediolateral oblique (MLO) and craniocaudad (CC) views of both breasts were obtained. CAD: Full Field Digital Mammography with Computer Added Detection was performed. COMPARISON: Comparison is made with prior study dated 12/18/2019 and 06/14/2019. FINDINGS: Breast Composition: The breasts are heterogeneously dense, which may obscure small masses. There are no dominant masses or suspicious calcifications. A tissue clip marker is seen in the slightly upper lateral anterior aspect of the right breast from prior biopsy. Stable small benign-appearing bilateral axillary lymph notes. No other significant abnormalities are identified. There has been no significant change since the prior study. BI/SCRN MAMM (CAD)W/GERA BILAT IMPRESSION: Stable bilateral screening mammogram. Yearly follow-up mammogram recommended. (A) ASSESSMENT CATEGORY: BIRADS Category 2: Benign. A letter regarding these results will be sent to the patient by the facility within 30 days. Approximately 10% of breast cancers are not detected by mammography. A normal mammogram should not delay biopsy of a clinically suspicious abnormality. [id number] Electronically Signed: Oniel Glaser MD at 8:49 EST , Service support ,
== END ==
PROVIDERS: PCP Family Medicine; Referring Provider Obstetrics & Gynecology; Visit Provider Obstetrics & Gynecology
DX: Z12.31 Encounter for screening mammogram for malignant neoplasm of breast (principal); Z80.3 Family history of malignant neoplasm of breast
CPT/HCPCS: 77063; 77067

== ENCOUNTER 2021-06-25 07:33 | Outpatient (CLI) | payer BC, SELFPAY ==
--- NOTE | 2021-06-25 07:36 | BI_ITS ---
MAMMOGRAPHY - BILATERAL SCREENING REASON FOR EXAM: Female, 60 years old. Routine annual screening examination. PERTINENT HISTORY: Mother with breast cancer. History of prior right ultrasound-guided breast biopsy. TECHNIQUE: Digital bilateral breast gera (3D mammographic acquisition) in the CC and MLO projections. 2-D mediolateral oblique (MLO) and craniocaudad (CC) views of both breasts were obtained. CAD: Full Field Digital Mammography with Computer Added Detection was performed. COMPARISON: Comparison is made with prior study dated 06/17/2020 and 12/18/2019. FINDINGS: Breast Composition: The breasts are heterogeneously dense, which may obscure small masses. There are no dominant masses or suspicious calcifications. Interstitial markings once again seen in the slightly upper lateral anterior aspect of the right breast from prior ultrasound-guided biopsy. This is unchanged. No other significant abnormalities are identified. There has been no significant change since the prior study. BI/SCRN MAMM (CAD)W/GERA BILAT IMPRESSION: Stable bilateral screening mammogram. Yearly follow-up mammogram recommended. (A) ASSESSMENT CATEGORY: BIRADS Category 2: Benign. A letter regarding these results will be sent to the patient by the facility within 30 days. Approximately 10% of breast cancers are not detected by mammography. A normal mammogram should not delay biopsy of a clinically suspicious abnormality. [id number] Electronically Signed: Oniel Glaser MD at 8:29 EST ,
== END 2021-06-25 23:59 | disposition home or self-care (01) ==
LOC: OPBI 07:34
PROVIDERS: PCP Family Medicine; Referring Provider Obstetrics & Gynecology; Visit Provider Obstetrics & Gynecology
DX: Z12.31 Encounter for screening mammogram for malignant neoplasm of breast (principal); Z80.3 Family history of malignant neoplasm of breast; Z85.3 Personal history of malignant neoplasm of breast
CPT/HCPCS: 77063; 77067

== ENCOUNTER → 2022-07-30 | Outpatient (CLI) | payer BC, SELFPAY ==
[2022-08-06 12:21] LABS: HPV APTIMA, High Risk Negative (Negative)
== END | disposition home or self-care (01) ==
LOC: LABSPEC 09:34
PROVIDERS: Visit Provider Student in an Organized Health Care Education/Training Program
DX: Z12.4 Encounter for screening for malignant neoplasm of cervix (principal)
CPT/HCPCS: 87624; 88175; G0145

== ENCOUNTER → 2022-08-04 | Outpatient (CLI) | payer BC, SELFPAY ==
--- NOTE | 2022-08-04 07:41 | BI_ITS ---
MAMMOGRAPHY - BILATERAL SCREENING REASON FOR EXAM: Female, 61 years old. Routine annual screening examination. PERTINENT HISTORY: Mother with breast cancer. Prior right ultrasound-guided breast biopsy. TECHNIQUE: Digital bilateral breast gera (3D mammographic acquisition) in the CC and MLO projections. 2-D mediolateral oblique (MLO) and craniocaudad (CC) views of both breasts were obtained. CAD: Full Field Digital Mammography with Computer Added Detection was performed. COMPARISON: Comparison is made with prior study of June 25, 2021 and June 17, 2020. FINDINGS: Breast Composition: The breasts are heterogeneously dense, which may obscure small masses. There are no dominant masses or suspicious calcifications. A tissue clip marker is once again seen in the retroareolar region of the right breast. Stable appearance of the bilateral axillary lymph nodes. No other significant abnormalities are identified. There has been no significant change since the prior study. BI/SCRN MAMM (CAD)W/GERA BILAT IMPRESSION: Stable bilateral screening mammogram. Yearly follow-up mammogram recommended. (A) ASSESSMENT CATEGORY: BIRADS Category 2: Benign. A letter regarding these results will be sent to the patient by the facility within 30 days. Approximately 10% of breast cancers are not detected by mammography. A normal mammogram should not delay biopsy of a clinically suspicious abnormality. [id number] Electronically Signed: Oniel Glaser MD at 8:47 EDT ,
== END | disposition home or self-care (01) ==
LOC: OPBI 07:39
PROVIDERS: Referring Provider Student in an Organized Health Care Education/Training Program; Visit Provider Student in an Organized Health Care Education/Training Program
DX: Z12.31 Encounter for screening mammogram for malignant neoplasm of breast (principal); Z80.3 Family history of malignant neoplasm of breast
CPT/HCPCS: 77063; 77067

== ENCOUNTER → 2023-01-19 | Outpatient (CLI) | payer BC, SELFPAY ==
[2023-01-19 12:25] LABS: Absolute Lymphocyte Count 1.17 X10^3/uL (0.83-4.51); Absolute Neutrophil Count 2.8 X10^3/uL (2.0-7.7); Basophil# 0.06 X10^3/uL; Basophil% 1.3 % (0-1); Eosinophil# 0.08 X10^3/uL; Eosinophils% 1.8 % (0-5); Hematocrit 37.8 % (37-47); Hemoglobin 11.3 g/dL (12.0-15.0); Lymphocyte # 1.17 X10^3/ul (0.83-4.51); Lymphocyte % 26.1 % (19-41); Mean Corp Hgb Conc 29.9 g/dL (32-36); Mean Corpuscular Hgb 25.2 pg (27.0-32.0); Mean Corpuscular Volume 84.4 fL (81-99); Mean Platelet Vol. 9.8 fl (6.2-12.0); Monocyte% 8.9 % (0-10); NRBC Flagged by Analyzer 0 % (0-5); Neutrophil # 2.75 X10^3/uL (2.7-7.7); Neutrophil % 61.5 % (47-70); Platelet Count 426 K/mm3 (150-450); RBC Distribution Width CV 15.8 % (11.6-14.6); RBC Distribution Width SD 48.4 fl (35.1-43.9); Red Blood Count 4.48 M/mm3 (4.2-5.4); White Blood Count 4.5 K/mm3 (4.4-11.0)
[2023-01-19 13:08] LABS: ALB/GLOB Ratio 0.8 RATIO (0.9-2.4); AST(SGOT) 33 U/L (15-37); Alanine Aminotransfer ALT/SGPT 31 U/L (13-56); Albumin, Serum 3.6 g/dL (3.2-5.0); Alkaline Phosphatase 105 U/L (45-117); Anion Gap 4 (5-15); BUN 15 mg/dL (7-18); BUN/Creat Ratio 18.6 RATIO (10-20); Chloride 110 mmol/L (98-107); Cholesterol 203 mg/dL (200); Creatinine, Serum 0.81 mg/dL (0.55-1.02); EST Glomerular Filtration Rate 76 mL/min (>60); Est Glom Filt Rate - Afr Amer 92 mL/min (>60); Globulin 4.5 g/dL (2.2-4.2); Glucose 91 mg/dL (74-106); High Density Lipoprotein 80 mg/dL; Magnesium 2.3 mg/dL (1.6-2.6); Potassium 4.4 mmol/L (3.5-5.1); Protein, Total 8.1 g/dL (6.4-8.2); Sodium Level 140 mmol/L (136-145); Triglycerides 77 mg/dL; Very Low Density Lipoprotein 15 mg/dL (5-40)
== END | disposition home or self-care (01) ==
LOC: BFHLAB 09:34
PROVIDERS: PCP Nurse Practitioner Family; Referring Provider Nurse Practitioner Family; Visit Provider Nurse Practitioner Family
DX: Z00.00 Encounter for general adult medical examination without abnormal findings (principal); R25.2 Cramp and spasm
CPT/HCPCS: 36415; 80053; 80061; 83735; 85025

== ENCOUNTER 2023-03-09 08:07 | Day surgery (SDC) | payer BC, SELFPAY ==
[2023-03-09] VITALS (7 sets, daily range): BP systolic 93–120; BP diastolic 59–70; PULSE 72–91; RESP 16–18; TEMP 36.3–36.9; O2SAT 95–100; BMI 28.6
[2023-03-09] MEDS: Lactated Ringers 1,000 ML 15 ML IV (08:40)
--- NOTE | 2023-03-09 08:52 | H&P.OPEN ---
[facility] - General General Date of Service: 03/09/23 HPI Narrative SUDHIR ENRIQUE, is a 62 F who presents for screening colonoscopy. Patient last colonoscopy was 10 years ago patient did have a couple polyps was told 10 years per patient by Dr. Gray. Patient has bowel movements mostly every day. Patient denies any chronic abdominal pain/nausea/vomiting/reflux. Patient denies any family history of colon cancer. [facility] Medical History (Updated 03/02/23 @ 12:18 by Margareth Mcclendon) GERD (gastroesophageal reflux disease) Hemorrhoid History of benign schwannoma History of hiatal hernia History of IBS Hx of colonic polyps Leg cramps Low iron Non-smoker Pancreatitis Restless legs Wears glasses Home Medications ferrous sulfate 325 mg (65 mg iron) tablet (Feosol) 325 mg PO .2x a week 02/04/23 [History Last Taken Unknown] Allergy/AdvReac Type Severity Reaction Status Date / Time latex Allergy Mild rash Verified 03/02/23 12:11 Family History Mother Diabetes Thyroid disorder Breast cancer Grandfather Heart disease Surgical History (Updated 03/02/23 @ 12:18 by Margareth Mcclendon) History of cholecystectomy History of colonoscopy (~2011) Social History Smoking Status: Never smoker Past Medical/Surgical History Planned Operation Planned Operative Procedure/s: CSCOPE Previous Hospitalizations/Surgeries HX Hospitalizations: No Any Problems With Anesthesia: No You/Your Family Experience Fever (Hyperthermia) With Anes: No Cholinesterase deficiency: No Cardiovascular Hx Chest Pain within Last 2 months: No Hx of Irregular Heartbeat and/or Afib: No Hx Heart Attack: No Hx Hypertension: No Hx Cardiac Surgery/Stents/Etc.: No Hx Pain in Legs when Walking/Leg Cramps: No Respiratory Hx Chronic Obstructive Pulmonary Disease (COPD): No Hx Emphysema: No Hx Sleep Apnea: No Hx Respiratory Tract Infection/Cold (presently): No Do You Snore Loudly (louder than talking or can be heard): Yes Do You Often Feel Tired/ Fatigued/ Sleepy Dring Daytime?: No Has Anyone Observed You Stop Breathing During Sleep?: No Result (for STOP score): Negative Hx Smoking: No Smoking Status: Never smoker Gastrointestinal Hx Gastrointestinal Bleed: No Hx Ulcer: No Difficulty Chewing/Swallowing: No Hx Unplanned Weight Loss of 20#: No Neurological Hx Seizures: No Hx Multiple Sclerosis: No Hx Parkinson's Disease: No Does patient have nerve stimulator: No Blood Disorder Hx Hepatitis: No Hx Cirrhosis: No Hx Anemia: No Hx Blood Disorders: No Reproduction : No Genitourinary Hx Renal Disease: No Hx Dialysis: No Musculoskeletal Hx Arthritis: No Hx Rheumatoid Arthritis: No Endocrine Hx Diabetes: No Thyroid Disease: No Psycho/Social Hx Substance Use: No Hx Alcohol Use: No Hx Anxiety: No Hx Depression: No Hx Dementia: No Miscellaneous Hx Cancer: No Recent Exposure to Contagious Disease: No Allergies latex Allergy (Mild, Verified 03/02/23 12:11) rash Maternal: Family History Mother Diabetes Thyroid disorder Breast cancer Grandfather Heart disease Heart Disease Paternal: Family History Mother Diabetes Thyroid disorder Breast cancer Grandfather Heart disease Heart Disease Discharge Is Pt Admitted From a [facility], or a Jail: No After D/C, Where Do you Plan to Go: Return Home Vital Signs Vital Signs Vital Signs: 03/09/23 08:41 03/09/23 08:41 Temperature 98.5 F Temperature Source Temporal Pulse Rate 72 Respiratory Rate 18 Respiratory Pattern Normal Blood Pressure 120/70 Blood Pressure Mean 86 Blood Pressure Source Monitor Blood Pressure Position Semi-Fowlers Blood Pressure Location Left Arm Pulse Ox 100 Oxygen Delivery Method Room Air Weight Weight: 142 lb Body Mass Index (BMI) 28.6 Physical Exam Const alert, oriented x3 and no apparent distress HEENT normocephalic and head/scalp atraumatic Resp normal respiratory effort Cardio regular rate GI soft to palpation and non-tender; Negative for non-distended Palpation: Negative for guarding Extremity no clubbing, cyanosis or edema Skin no rashes or lesions noted Neuro CN's II-XII intact bilaterally Psych mental status grossly normal Assessment & Plan Assessment/Plan (1) Encounter for screening for malignant neoplasm of colon: Surgery Risks - Colonoscopy I discussed with the patient the risks of the procedure: Yes Risks Include but are not Limited To: Risks include but are not limited to: Bleeding, perforation requiring further surgery, inability to complete colonoscopy requiring barium enema.
--- NOTE | 2023-03-09 09:25 | OP.COLON_ITS ---
Patient Name: Bambi Lopez Procedure Date: 03/09/2023 8:58 AM Date of : 1960 Age: 62 Procedure: Colonoscopy Indications: Screening for colorectal malignant neoplasm Providers: Nicolasa Landa MD Referring MD: Nicolasa Landa MD Medicines: Monitored Anesthesia Care Patient Profile: This is a 62 year old female. Last Colonoscopy: 10 years ago. Complications: No immediate complications. Procedure: Pre-Anesthesia Assessment: - Prior to the procedure, a History and Physical was performed, and patient medications and allergies were reviewed. The patient's tolerance of previous anesthesia was also reviewed. The risks and benefits of the procedure and the sedation options and risks were discussed with the patient. All questions were answered, and informed consent was obtained. Prior Anticoagulants: The patient has taken no anticoagulant or antiplatelet agents. ASA Grade Assessment: Per anesthesia. After reviewing the risks and benefits, the patient was deemed in satisfactory condition to undergo the procedure. After I obtained informed consent, the scope was passed under direct vision. Throughout the procedure, the patient's blood pressure, pulse, and oxygen saturations were monitored continuously. The Colonoscope was introduced through the anus and advanced to the cecum, identified by the appendiceal orifice, ileocecal valve and palpation. The colonoscopy was performed without difficulty. The patient tolerated the procedure well. The quality of the bowel preparation was good. Scope In: 9:02:40 AM Scope Withdrawal Time 0 hours 9 minutes 46 seconds Scope Out: 9:19:03 AM Total Procedure Duration Time 0 hours 16 minutes 23 seconds Findings: Hemorrhoids were found on perianal exam. Non-bleeding internal hemorrhoids were found. The hemorrhoids were Grade II (internal hemorrhoids that prolapse but reduce spontaneously). A less than 5 mm polyp was found in the cecum. The polyp was sessile. The polyp was removed with a cold biopsy forceps. Resection and retrieval were complete. Scattered small-mouthed diverticula were found in the sigmoid colon, descending colon and transverse colon. The exam was otherwise without abnormality. Impression: - Hemorrhoids found on perianal exam. - Non-bleeding internal hemorrhoids. - One less than 5 mm polyp in the cecum, removed with a cold biopsy forceps. Resected and retrieved. - Diverticulosis in the sigmoid colon, in the descending colon and in the transverse colon. - The examination was otherwise normal. Recommendation: - Discharge patient to home. - High fiber diet. - Continue present medications. - Await pathology results. - Repeat colonoscopy in 5-10 years for surveillance based on pathology results. Procedure Code(s): --- Professional --- 04114, PT, Colonoscopy, flexible; with biopsy, single or multiple Diagnosis Code(s): --- Professional --- Z12.11, Encounter for screening for malignant neoplasm of colon K64.1, Second degree hemorrhoids D12.0, Benign neoplasm of cecum K57.30, Diverticulosis of large intestine without perforation or abscess without bleeding CPT copyright 2021 [employer]. All rights reserved. The codes documented in this report are preliminary and upon card filer review may be revised to meet current compliance requirements. MD Nicolasa Lucero MD 03/09/2023 9:25:06 AM This report has been signed electronically. Number of Addenda: 0 Note Initiated On: 03/09/2023 8:58 AM
--- NOTE | 2023-03-09 09:26 | OP.CCLET_ITS ---
03/09/2023 Jing Cooney Re : Colonoscopy procedure for Bambi Lopez Dear Jamil This procedure was performed on Thursday, March 09, 2023. My impressions and recommendations are as follows: Impressions : - Hemorrhoids found on perianal exam. - Non-bleeding internal hemorrhoids. - One less than 5 mm polyp in the cecum, removed with a cold biopsy forceps. Resected and retrieved. - Diverticulosis in the sigmoid colon, in the descending colon and in the transverse colon. - The examination was otherwise normal. Recommendations : - Discharge patient to home. - High fiber diet. - Continue present medications. - Await pathology results. - Repeat colonoscopy in 5-10 years for surveillance based on pathology results. My findings are described in the full procedure note, which is enclosed. If I can be of further assistance, please feel free to contact me at Doctor phone number(s): , Work: . Sincerely, MD Nicolasa Lucero MD 03/09/2023 9:25:06 AM This report has been signed electronically.
--- NOTE | 2023-03-09 09:30 | COLBX_PTH ---
PATIENT: SUDHIR ENRIQUE LOC: [facility] U#:[id number] AGE/SX: 62/F ROOM: RE03/09/[address]: Dr. Nicolasa Landa MD : 1960 BED: DIS: 03/09/2023 SPEC #: [id number] RECD: 03/09/23 12:51 STATUS: LEATHA REGracie #: [id number] MICHELLE: 03/09/23 09:[address]: Nicolasa Landa DEPT: SURGICAL PATHOLOGY RECD BY: Neli Bay ENTERED: 03/09/23 13:17 SP TYPE: COLON BX OTHR DR: Chasity Negron, VISUAL MERCHANDISING COORDINATOR-C Tissues: Cecum, NOS Procedures: Surgery Specimen Level IV Comments: @ Specimen number changed from [id number] to [id number] @ on 03/09/23 at 1351 by MASON. HEADER OPERATION: Colonoscopy, biopsy PRE-OP DIAGNOSIS: Screening TISSUE SUBMITTED: Cecum polyp biopsy MICROSCOPIC DIAGNOSIS Cecum polyp, biopsy: Polypoid fragments of benign colonic mucosa. See Comment. AM:nicolasa 03/10/2023 COMMENT Neither hyperplastic nor adenomatous change is identified. Clinical correlation is suggested. MICROSCOPIC DESCRIPTION Slides are reviewed. GROSS DESCRIPTION Received in fixative is one container labeled with the patient's name and designated cecum polyp biopsy. The specimen consists of two irregular fragments of light loera soft tissue that in aggregate measure 0.5 x 0.5 x 0.1 cm. The specimen is totally submitted in one cassette. / SJ:nicolasa 03/09/2023 TC:3 CPT: 33960
== END 2023-03-09 10:27 | disposition home or self-care (01) ==
LOC: EN 08:08 → AC 08:09
PROVIDERS: PCP Nurse Practitioner Family; Referring Provider Surgery; Visit Provider Surgery
PROC: 0DJD8ZZ Inspection of Lower Intestinal Tract, Via Natural or Artificial Opening Endoscopic (ICD-10-PCS; CPT 45378; principal; 2023-03-09 09:25)
DX: Z12.11 Encounter for screening for malignant neoplasm of colon (principal); K57.30 Diverticulosis of large intestine without perforation or abscess without bleeding; K64.1 Second degree hemorrhoids; K63.5 Polyp of colon; Z86.010 Personal history of colon polyps; K21.9 Gastro-esophageal reflux disease without esophagitis; Z87.19 Personal history of other diseases of the digestive system
CPT/HCPCS: 45380; 88305; J7120; J2405

== ENCOUNTER → 2023-08-08 | Outpatient (CLI) | payer BC, SELFPAY ==
--- NOTE | 2023-08-08 11:51 | BI_ITS ---
MAMMOGRAPHY - BILATERAL SCREENING REASON FOR EXAM: Female, 62 years old. Routine annual screening examination. PERTINENT HISTORY: Mother with breast cancer. TECHNIQUE: Digital bilateral breast gera (3D mammographic acquisition) in the CC and MLO projections. 2-D mediolateral oblique (MLO) and craniocaudad (CC) views of both breasts were obtained. CAD: Full Field Digital Mammography with Computer Added Detection was performed. COMPARISON: Comparison is made with prior study dated August 04, 2022 and June 25, 2021. FINDINGS: Breast Composition: The breasts are heterogeneously dense, which may obscure small masses. There are no dominant masses or suspicious calcifications. Stable bilateral fat containing axillary lymph nodes. A tissue clip marker is seen in the slightly upper lateral anterior aspect of the right breast. No other significant abnormalities are identified. There has been no significant change since the prior study. BI/SCRN MAMM (CAD)W/GERA BILAT IMPRESSION: Stable bilateral screening mammogram. Yearly follow-up mammogram recommended. (A) ASSESSMENT CATEGORY: BIRADS Category 2: Benign. A letter regarding these results will be sent to the patient by the facility within 30 days. Approximately 10% of breast cancers are not detected by mammography. A normal mammogram should not delay biopsy of a clinically suspicious abnormality. [id number] Electronically Signed: Oniel Glaser MD at 12:47 EDT ,
== END | disposition home or self-care (01) ==
LOC: OPBI 11:50
PROVIDERS: PCP Nurse Practitioner Family; Referring Provider Nurse Practitioner Family; Visit Provider Nurse Practitioner Family
DX: Z12.31 Encounter for screening mammogram for malignant neoplasm of breast (principal); Z80.3 Family history of malignant neoplasm of breast
CPT/HCPCS: 77063; 77067

== ENCOUNTER → 2023-11-15 | Outpatient (CLI) | payer OTHER, SELFPAY ==
--- NOTE | 2023-11-15 11:10 | RAD_ITS ---
STUDY: X-RAY - ABDOMEN/PELVIS REASON FOR EXAM: Female, 62 years old. Assess stool burden. TECHNIQUE: Single AP view of the abdomen / pelvis on 2 images. COMPARISON: None. FINDINGS: Normal visualized lung bases. Normal bowel gas pattern with air seen to the rectosigmoid. Moderate amount of feces in the colon. Ovoid 9 mm in diameter calcification projected over the right quadrant of the abdomen which may reside in bowel or represent a renal calculus. Phleboliths. Normal visualized osseous structures. RAD/Abdomen Single View IMPRESSION: Moderate amount of feces in the colon. Questionable right nephrocalcinosis. No acute finding. Electronically Signed: Stephan Ballesteros MD at 12:43 EDT ,
[2023-11-15 11:59] LABS: Absolute Lymphocyte Count 1.42 X10^3/uL (0.83-4.51); Absolute Neutrophil Count 4.8 X10^3/uL (2.0-7.7); Basophil# 0.04 X10^3/uL; Basophil% 0.6 % (0-1); Eosinophil# 0.08 X10^3/uL; Eosinophils% 1.2 % (0-5); Hematocrit 40.2 % (37-47); Hemoglobin 12.3 g/dL (12.0-15.0); Lymphocyte # 1.42 X10^3/ul (0.83-4.51); Lymphocyte % 20.6 % (19-41); Mean Corp Hgb Conc 30.6 g/dL (32-36); Mean Corpuscular Hgb 26.5 pg (27.0-32.0); Mean Corpuscular Volume 86.5 fL (81-99); Mean Platelet Vol. 9.7 fl (6.2-12.0); Monocyte# 0.55 X10^3/uL; NRBC Flagged by Analyzer 0 % (0-5); Neutrophil # 4.76 X10^3/uL (2.7-7.7); Neutrophil % 69.2 % (47-70); Platelet Count 422 K/mm3 (150-450); RBC Distribution Width CV 14.2 % (11.6-14.6); Red Blood Count 4.65 M/mm3 (4.2-5.4); White Blood Count 6.9 K/mm3 (4.4-11.0)
[2023-11-15 12:21] LABS: ALB/GLOB Ratio 0.7 RATIO (0.9-2.4); AST(SGOT) 45 U/L (15-37); Alanine Aminotransfer ALT/SGPT 46 U/L (13-56); Albumin, Serum 3.7 g/dL (3.2-5.0); Alkaline Phosphatase 144 U/L (45-117); Anion Gap 8 (5-15); BUN 13 mg/dL (7-18); Calcium,Total 9.4 mg/dL (8.5-10.1); Chloride 104 mmol/L (98-107); Creatinine, Serum 0.87 mg/dL (0.55-1.02); EST Glomerular Filtration Rate 70 mL/min (>60); Est Glom Filt Rate - Afr Amer 85 mL/min (>60); Globulin 5.1 g/dL (2.2-4.2); Glucose 95 mg/dL (74-106); Potassium 3.5 mmol/L (3.5-5.1); Protein, Total 8.8 g/dL (6.4-8.2); Sodium Level 137 mmol/L (136-145)
== END | disposition home or self-care (01) ==
PROVIDERS: PCP Nurse Practitioner Family; Referring Provider Nurse Practitioner Family; Visit Provider Nurse Practitioner Family
DX: K59.00 Constipation, unspecified (principal); R10.9 Unspecified abdominal pain; I10 Essential (primary) hypertension
CPT/HCPCS: 36415; 74018; 80053; 85025

== ENCOUNTER 2023-11-18 18:22 | Emergency (ER) | payer OTHER, SELFPAY ==
[2023-11-18 18:23] VITALS: BP 151/88; PULSE 94; RESP 16; TEMP 36.3; O2SAT 99; BMI 28.6
--- NOTE | 2023-11-18 18:49 | EDS_ITS ---
HPI History of Present Illness Chief Complaint: Flank Pain Informant: patient Narrative Narrative: 62-year-old female presenting to the emergency room with a chief complaint of left abdominal and back pain. Patient states that last Tuesday she began to have some back pain in the low back that seem to radiate upwards. It came and went. She saw her doctor on Tuesday had labs and a urinalysis which she state was negative. She is also began to have left-sided abdominal pain. She notes a lack of appetite. Patient does have a history of diverticulosis but has not had diverticulitis. She notes that she has had a history of pancreatitis as well as prior cholecystectomy. She notes a fever of 101 degrees on Tuesday night. No significant change in bowel habits. No cough shortness of breath or chest pain. No rashes. [facility] Medical History Wears glasses Low iron Restless legs History of hiatal hernia History of IBS Non-smoker Leg cramps Hx of colonic polyps History of benign schwannoma Pancreatitis Hemorrhoid GERD (gastroesophageal reflux disease) Home Medications ?Medication ?Instructions ?Recorded ?Last Taken ?Type ferrous sulfate 325 mg (65 mg 325 mg PO .2x a week 02/04/23 Unknown History iron) tablet (Feosol) cholecalciferol (vitamin D3) 25 25 mcg PO DAILY 10/06/23 Unknown History mcg (1,000 unit) tablet docusate sodium 100 mg capsule 100 mg PO DAILY 10/06/23 Unknown History (Colace) ondansetron 4 mg disintegrating 4 mg PO Q6H PRN PRN Nausea #15 tabs 11/18/23 Unknown Rx tablet Allergy/AdvReac Type Severity Reaction Status Date / Time latex Allergy Mild rash Verified 11/18/23 18:23 Family History Mother Diabetes Thyroid disorder Breast cancer Grandfather Heart disease Maternal Cancer Paternal - Throat CA Father Heart disease Surgical History History of colonoscopy (~2011) History of cholecystectomy Social History Smoking Status: Never smoker ROS ROS ED Constitutional Constitutional ED: Reports chills, fever(s) and sweats; Denies weight loss Eyes Eyes: Denies change in vision or diplopia ENT ENT ED: Denies ear pain, rhinorrhea or sore throat Cardiovascular Cardiovascular: Denies chest pain, orthopnea, palpitations or racing heartbeat Respiratory/Chest Respiratory/Chest: Denies cough, dyspnea or orthopnea Gastrointestinal Gastrointestinal: Reports abdominal pain, nausea and other Details: Anorexia ; Denies diarrhea or vomiting Genitourinary Genitourinary ED: Denies dysuria, hematuria or urinary frequency Musculoskeletal Musculoskeletal: Reports back pain; Denies arthralgias, myalgias or neck pain Integumentary Denies abscess or rash Neurologic Neurologic: Denies headache(s) or weakness Psychiatric Psychiatric: Denies anxiety, depression, suicidal ideation or suicidal thoughts Endocrine Endocrinology: Denies polydipsia, polyphagia or polyuria Allergic/Immunologic Allergic/Immunologic ED: Denies mouth swelling, tongue swelling or urticaria EXAM Physical Exam Const Vital Signs: 11/18/23 18:23 11/18/23 20:23 11/18/23 21:01 Temperature 97.4 F L 98.1 F Temperature Source Temporal Pulse Rate 94 98 68 Respiratory Rate 16 18 18 Blood Pressure 151/88 H 137/75 H 137/75 H Blood Pressure Mean 109 95 95 Pulse Ox 99 71 99 Oxygen Delivery Method Room Air Room Air Positive well nourished and well developed General Appearance ED: well developed HEENT Reports normocephalic, head/scalp atraumatic and moist mucous membranes Eyes PERRL and EOMs intact bilaterally Neck no lymphadenopathy, supple and no JVD Resp normal respiratory effort and clear to auscultation bilaterally Cardio regular rate, regular rhythm and no murmurs GI normal to inspection, nondistended, normoactive bowel sounds and non-tender Palpation: soft Back/Spine no CVA tenderness and normal ROM Extremity normal to inspection General Extremety ED: Negative for edema General Extremity: Negative for edema Neuro oriented x3 and CN's II-XII intact bilaterally Sensorium / Orientation: alert Motor Exam: strength 5/5 throughout Psych mental status grossly normal Mood & Affect: Negative for depressed or tearful Skin no rashes or lesions noted and no wounds MDM MDM MDM Narrative Medical decision making narrative: Differential diagnosis includes retroperitoneal hematoma psoas abscess/hematoma pancreatitis colitis diverticulitis ureterolithiasis UTI Patient's white count 8.5. Potassium 3.1 glucose 140 LFTs are within normal limits except for alkaline phosphatase of 133. Lipase is elevated at 2342. Urinalysis 50-100 white cells negative nitrates positive leukocyte esterase rare bacteria this will be sent for culture. CT abdomen pelvis demonstrates some mild inflammatory changes as well as some calcifications of the pancreas. The patient most likely has a mild case of acute pancreatitis. In speaking with her and using shared decision making the patient does not feel that she needs to be admitted. She is going to switch to mostly water and bowel rest for the next couple days. I gave her an oral dose of potassium and IV fluids. I will write for Miguel Angel. She wishes to stick with Tylenol for pain. Patient understands she may worsen and need to return and be admitted but at this time I am in agreement with her that she could probably go home and follow-up. She seems very reasonable in this approach History & Record Review Discussion w/independent historian: Patient Additional record(s) reviewed:: Prior labs Lab Data Attestation: I reviewed the patient's lab results. Labs: Laboratory Results - last 24 hr 11/18/23 18:57 WBC 8.8 RBC 4.57 Hgb 12.1 Hct 39.0 MCV 85.3 MCH 26.5 L MCHC 31.0 L RDW Std Deviation 42.7 RDW Coeff of Arvind 13.8 Plt Count 391 MPV 9.4 Immature Gran % (Auto) 0.300 Neut % (Auto) 69.6 Lymph % (Auto) 19.2 Dunn % (Auto) 8.9 Eos % (Auto) 1.3 Baso % (Auto) 0.7 Absolute Neuts (auto) 6.1 Absolute Lymphs (auto) 1.68 Nucleated RBC % 0 Sodium 137 Potassium 3.1 L Chloride 103 Carbon Dioxide 26.0 Anion Gap 8 BUN 11 Creatinine 0.82 Estim Creat Clear Calc 58.06 Est GFR (MDRD) Af Amer 90 Est GFR (MDRD) Non-Af 74 BUN/Creatinine Ratio 13.4 Glucose 140 H Calcium 9.0 Total Bilirubin 0.30 Direct Bilirubin 0.06 AST 28 ALT 32 Alkaline Phosphatase 133 H Total Protein 8.3 H Albumin 3.5 Globulin 4.8 H Lipase 2342 H Urine Color Yellow Urine Clarity Sl. Cloudy Urine pH 5.0 Ur Specific Walker 1.020 Urine Protein 30 H Urine Glucose (UA) Normal Urine Ketones 150 A* Urine Occult Blood 10 H Urine Nitrite Negative Urine Bilirubin Negative Urine Urobilinogen Normal Ur Leukocyte Esterase 500 H Urine RBC 0 SEEN Urine WBC 50-100 SEEN Ur Squamous Epith Cells 5-10 SEEN Ur Renal Epithelial Cell 0-5 SEEN Amorphous Sediment 1+ URATE Urine Bacteria RARE Urine Mucus 0 SEEN Radiography Diagnostic Testing: Clinical Impression(s) from Imaging Studies Abdomen/Pelvis CT 11/18/23 19:22 IMPRESSION: 1. Pancreatic calcifications likely secondary to the sequela of chronic pancreatitis. Minimal apparent peripancreatic edema may indicate superimposed acute pancreatitis. 2. Pleural nodule in the left lower lobe measuring 6 mm. Slight lobulations. Fleischner Society Guidelines (MacMahon, et al. Radiology 2017; 284(1):228-43) recommend a follow-up chest CT in 6-12 months in patients with a low or high risk of malignancy. 3. Colonic diverticulosis without evidence of acute diverticulitis. Electronically Signed: Goran Jackson DO at 19:50 EDT , Discharge Plan Triage Chief Complaint: Flank Pain ED Provider: Eric Tiwari Dx/Rx/DC Orders Clinical Impression: Acute pancreatitis, Abdominal pain, acute Instructions: ED Pancreatitis Prescriptions: New ondansetron 4 mg tablet,disintegrating 4 mg PO Q6H PRN PRN (Reason: Nausea) Qty: 15 0RF No Action ferrous sulfate [Feosol] 325 mg (65 mg iron) tablet 325 mg PO .2x a week docusate sodium [Colace] 100 mg capsule 100 mg PO DAILY cholecalciferol (vitamin D3) 25 mcg (1,000 unit) tablet 25 mcg PO DAILY Primary Care Provider: Chasity Negron Referrals: Chasity Negron, M[facility] CHANGER-C [Primary Care Provider] - 3-5 Days Print Language: [place] Irish Disposition Disposition: Home, Self Care Discharge Date/Time: 11/18/23 21:02
[2023-11-18 19:02] LABS: Mucous, Urine 0 SEEN /hpf (<or=2+); Red Blood Cells-Urine 0 SEEN /hpf (0-5)
[2023-11-18 19:18] LABS: Absolute Lymphocyte Count 1.68 X10^3/uL (0.83-4.51); Absolute Neutrophil Count 6.1 X10^3/uL (2.0-7.7); Basophil# 0.06 X10^3/uL; Basophil% 0.7 % (0-1); Eosinophil# 0.11 X10^3/uL; Eosinophils% 1.3 % (0-5); Hemoglobin 12.1 g/dL (12.0-15.0); Lymphocyte # 1.68 X10^3/ul (0.83-4.51); Lymphocyte % 19.2 % (19-41); Mean Corpuscular Hgb 26.5 pg (27.0-32.0); Mean Corpuscular Volume 85.3 fL (81-99); Mean Platelet Vol. 9.4 fl (6.2-12.0); Monocyte# 0.78 X10^3/uL; Monocyte% 8.9 % (0-10); NRBC Flagged by Analyzer 0 % (0-5); Neutrophil % 69.6 % (47-70); Platelet Count 391 K/mm3 (150-450); RBC Distribution Width CV 13.8 % (11.6-14.6); RBC Distribution Width SD 42.7 fl (35.1-43.9); Red Blood Count 4.57 M/mm3 (4.2-5.4); White Blood Count 8.8 K/mm3 (4.4-11.0)
[2023-11-18 19:19] LABS: Color, Urine Yellow (Yellow); Glucose, Dipstick Normal (Normal); Leukocyte Esterase-Dipstick 500 /ul (Negative); Nitrite-Dipstick Negative (Negative); Occult Blood-Urine 10 /ul (Negative); Protein-Dipstick 30 mg/dl (Negative); Urine Bilirubin Dipstick Negative (Negative); Urine Clarity Sl. Cloudy (Clear); Urine Urobilinogen Normal (Normal)
--- NOTE | 2023-11-18 19:22 | CT_ITS ---
EXAM: CT ABDOMEN AND PELVIS WITHOUT INTRAVENOUS CONTRAST CLINICAL INDICATION: PAIN TECHNIQUE: Helically acquired images were obtained of the abdomen and pelvis without intravenous contrast. This CT exam was performed using one or more of the following dose reduction techniques: automated exposure control, adjustment of the mA and/or kV according to patient size, and/or use of iterative reconstruction technique. COMPARISON: MRI abdomen, 06/02/2017 and abdominal radiograph, 11/15/2023 FINDINGS: LOWER THORAX: Pleural nodule in the left lower lobe measuring 6 mm. Slight lobulations. No cardiomegaly. No significant pericardial effusion. ABDOMEN: LIVER: Left hepatic calcification is not evident. This is unchanged since prior MRI. Otherwise, the liver appears normal. GALLBLADDER AND BILE DUCTS: Status post cholecystectomy. No intra- or extrahepatic biliary ductal dilation. PANCREAS: Pancreatic calcifications likely secondary to the sequela of chronic pancreatitis. Minimal apparent peripancreatic edema may indicate superimposed acute pancreatitis. No focal cystic mass. SPLEEN: No significant abnormality. Normal size without focal cystic or solid mass. ADRENALS: No significant abnormality. No nodules. KIDNEYS AND URETERS: No significant abnormality. Normal renal size and position. No hydronephrosis. STOMACH AND BOWEL: Colonic diverticulosis without evidence of acute diverticulitis. No stomach or bowel distention. PELVIS: APPENDIX: Normal appendix in the right lower quadrant. BLADDER: No significant abnormality. REPRODUCTIVE: Normal as visualized. No mass. ABDOMEN and PELVIS: INTRAPERITONEAL SPACE: No significant abnormality. No ascites or other fluid collection. No free air. The mass previously identified along the greater curvature of the stomach present. BONES/JOINTS: Mild degenerative changes in the spine and hips. No suspicious lytic or blastic abnormality. SOFT TISSUES: No significant abnormality. No discrete abdominal or pelvic wall hernia. VASCULATURE: Trace atherosclerosis. Abdominal aorta is non-dilated. LYMPH NODES: No significant abnormality. No enlarged lymph nodes. CT/Abdomen/Pelvis without Cont IMPRESSION: 1. Pancreatic calcifications likely secondary to the sequela of chronic pancreatitis. Minimal apparent peripancreatic edema may indicate superimposed acute pancreatitis. 2. Pleural nodule in the left lower lobe measuring 6 mm. Slight lobulations. Fleischner Society Guidelines (MacMahon, et al. Radiology 2017; 284(1):228-43) recommend a follow-up chest CT in 6-12 months in patients with a low or high risk of malignancy. 3. Colonic diverticulosis without evidence of acute diverticulitis. Electronically Signed: Goran Jackson DO at 19:50 EDT ,
[2023-11-18 19:25] LABS: Ketone-Dipstick 150 mg/dl (Negative)
[2023-11-18 19:28] LABS: Renal Epithelial Cells 0-5 SEEN /hpf (0-5); Squamous Epithelial Cells - UA 5-10 SEEN /hpf (5-10); White Blood Cells 50-100 SEEN /hpf (0-5)
[2023-11-18 19:29] LABS: Amorphous Sediment 1+ URATE; Bacteria RARE /hpf (None Seen)
[2023-11-18 19:44] LABS: AST(SGOT) 28 U/L (15-37); Alanine Aminotransfer ALT/SGPT 32 U/L (13-56); Albumin, Serum 3.5 g/dL (3.2-5.0); Alkaline Phosphatase 133 U/L (45-117); Anion Gap 8 (5-15); BUN 11 mg/dL (7-18); BUN/Creat Ratio 13.4 RATIO (10-20); Bilirubin, Direct 0.06 mg/dL (0.00-0.30); Chloride 103 mmol/L (98-107); Creatinine, Serum 0.82 mg/dL (0.55-1.02); EST Glomerular Filtration Rate 74 mL/min (>60); Est Glom Filt Rate - Afr Amer 90 mL/min (>60); Estimated Creatinine Clearance 58.06 ml/min; Globulin 4.8 g/dL (2.2-4.2); Glucose 140 mg/dL (74-106); Potassium 3.1 mmol/L (3.5-5.1); Protein, Total 8.3 g/dL (6.4-8.2); Sodium Level 137 mmol/L (136-145)
[2023-11-18] MEDS: 0.9% Normal Saline (1000mL) 1,000 ML 999 ML IV (19:48)
[2023-11-18] MEDS: Potassium Chloride Oral Tablet 20 MEQ 40 MEQ PO (19:53)
[2023-11-18 20:12] LABS: Lipase 2342 U/L (13-75)
[2023-11-18 20:23] VITALS: BP 137/75; PULSE 98; RESP 18; O2SAT 71
[2023-11-18 21:01] VITALS: BP 137/75; PULSE 68; RESP 18; TEMP 36.7; O2SAT 99
== END 2023-11-18 21:02 | disposition home or self-care (01) ==
PROVIDERS: Emergency Provider Emergency Medicine; PCP Nurse Practitioner Family; Visit Provider Emergency Medicine
DX: K85.90 Acute pancreatitis without necrosis or infection, unspecified (principal); K21.9 Gastro-esophageal reflux disease without esophagitis; Z87.19 Personal history of other diseases of the digestive system; Z90.49 Acquired absence of other specified parts of digestive tract
CPT/HCPCS: 74176; 80048; 80076; 81001; 83690; 85025; 87086; 87088; 96360; 99283; J7030; A4216

== ENCOUNTER → 2024-01-30 | Outpatient (CLI) | payer MEDICARE, OTHER, SELFPAY ==
[2024-01-30 12:34] LABS: Absolute Neutrophil Count 3.5 X10^3/uL (2.0-7.7); Basophil# 0.06 X10^3/uL; Basophil% 1.1 % (0-1); Eosinophil# 0.19 X10^3/uL; Eosinophils% 3.5 % (0-5); Hematocrit 41.9 % (37-47); Hemoglobin 12.8 g/dL (12.0-15.0); Lymphocyte % 23.9 % (19-41); Mean Corp Hgb Conc 30.5 g/dL (32-36); Mean Corpuscular Hgb 26.1 pg (27.0-32.0); Mean Corpuscular Volume 85.3 fL (81-99); Monocyte# 0.39 X10^3/uL; Monocyte% 7.2 % (0-10); NRBC Flagged by Analyzer 0 % (0-5); Neutrophil # 3.49 X10^3/uL (2.7-7.7); Neutrophil % 64.1 % (47-70); Platelet Count 307 K/mm3 (150-450); RBC Distribution Width CV 16.9 % (11.6-14.6); RBC Distribution Width SD 52.8 fl (35.1-43.9); Red Blood Count 4.91 M/mm3 (4.2-5.4); White Blood Count 5.4 K/mm3 (4.4-11.0)
[2024-01-30 13:03] LABS: Vitamin D,25 Hydroxy 91.4 ng/mL
[2024-01-30 13:27] LABS: ALB/GLOB Ratio 0.8 RATIO (0.9-2.4); AST(SGOT) 27 U/L (15-37); Alanine Aminotransfer ALT/SGPT 37 U/L (13-56); Albumin, Serum 3.6 g/dL (3.2-5.0); Alkaline Phosphatase 126 U/L (45-117); Anion Gap 9 (5-15); BUN 14 mg/dL (7-18); BUN/Creat Ratio 17.5 RATIO (10-20); Calcium,Total 9.4 mg/dL (8.5-10.1); Chloride 106 mmol/L (98-107); Cholesterol 216 mg/dL (200); EST Glomerular Filtration Rate 76 mL/min (>60); Est Glom Filt Rate - Afr Amer 92 mL/min (>60); Globulin 4.7 g/dL (2.2-4.2); Glucose 97 mg/dL (74-106); High Density Lipoprotein 84 mg/dL; Potassium 3.6 mmol/L (3.5-5.1); Protein, Total 8.3 g/dL (6.4-8.2); Sodium Level 140 mmol/L (136-145); Triglycerides 72 mg/dL; Very Low Density Lipoprotein 14 mg/dL (5-40)
== END | disposition home or self-care (01) ==
LOC: MTLAB 10:06
PROVIDERS: PCP Nurse Practitioner Family; Referring Provider Nurse Practitioner Family; Visit Provider Nurse Practitioner Family
DX: E78.5 Hyperlipidemia, unspecified (principal); I10 Essential (primary) hypertension; E55.9 Vitamin D deficiency, unspecified
CPT/HCPCS: 36415; 80053; 80061; 82306; 85025

== ENCOUNTER → 2024-02-16 | Outpatient (CLI) | payer MEDICARE, OTHER, SELFPAY ==
--- NOTE | 2024-02-16 08:19 | BD_ITS ---
STUDY: DUAL ENERGY X-RAY ABSORPTIOMETRY / DXA REASON FOR EXAM: Female, 63 years old. [id number] TECHNIQUE: Bone Mineral Density (BMD) measurements of lumbar spine and bilateral hips were obtained. COMPARISON: None. FINDINGS: Lumbar Spine (L1-L4): g/cm2 (0.787) / T-score (-2.4) / Z-score (-0.6) Findings are suggestive of osteopenia with a high fracture risk. Left Femur Total: g/cm2 (0.775) / T-score (-1.4) / Z-score (-0.1) Left Femoral Neck: g/cm2 (0.643) / T-score (-1.9) / Z-score (-0.3) Right Femur Total: g/cm2 (0.814) / T-score (-1.0) / Z-score (0.2) Right Femoral Neck: g/cm2 (0.700) / T-score (-1.3) / Z-score (0.2) BD/Dexa Bone Density Study IMPRESSION: The patient is considered osteopenic as outlined below according to World Jevon Organization (WHO) criteria with a high fracture risk. Reference Information: The T-score is the number of standard deviations above or below the standard which is normal for young adults at their peak bone mineral density. The World Health Organization (WHO) interprets the T-scores as follows: Above -1 Normal bone density Between -1 and -2.5 Osteopenia Equal to / or below -2.5 Osteoporosis As a practical clinical guideline, osteopenia may be graded as follows: Mild -1 through -1.5 Moderate -1.6 through -2.0 Severe -2.1 through -2.4 The Z-score is the number of standard deviations above or below age-matched controls. A Z-score of less than -1.5 would be considered abnormal. References: 1. NIH Osteoporosis and Related Bone Diseases www osteo.org 2. International Society for Clinical Densitometry www iscd.org 3. National Osteoporosis Foundation www nof.org Electronically Signed: Oniel Glaser MD at 11:16 EDT ,
== END | disposition home or self-care (01) ==
LOC: OPBD 08:15
PROVIDERS: PCP Nurse Practitioner Family; Referring Provider Nurse Practitioner Family; Visit Provider Nurse Practitioner Family
DX: Z13.820 Encounter for screening for osteoporosis (principal); Z78.0 Asymptomatic menopausal state
CPT/HCPCS: 77080

== ENCOUNTER → 2024-06-12 | Outpatient (CLI) | payer MEDICARE, OTHER, SELFPAY ==
--- NOTE | 2024-06-12 07:41 | CT_ITS ---
PROCEDURE: CHEST WITHOUT CONTRAST REASON FOR EXAM: Pulmonary nodule TECHNIQUE: Chest CT without contrast. COMPARISON: Correlation with prior CT abdomen and pelvis dated 11/18/2023 FINDINGS: Hardware: None. Lymph nodes: No mediastinal hilar or axillary lymphadenopathy. Heart and Vasculature: Normal heart size. No pericardial effusion. Thoracic aorta and pulmonary bryan victoria have normal contours; noncontrast technique limits evaluation. Minimal vascular calcifications within the aortic arch. Coronary Artery Calcifications: None Lungs and Airways: The lungs are well aerated. Pulmonary nodule seen within the left upper lobe, ant eriorly measuring approximately 6 mm (series 4, image 34). Pleural-based pulmonary nodule within the left lower lobe p osteriorly with mild lobulation measuring approximately 6 mm, stable in appearance when compared to prior imaging (series 4, image 72). Remaining lung markings otherwise appears clear. Pleura: No pleural effusion. No pneumothorax. Upper Abdomen: Dystrophic calcification within the left hepatic lobe measures up to 1.3 cm, relativel y stable in the interval. Bones: Mild spondylotic changes involving the thoracic spine. CT/Chest without Contrast IMPRESSION: 1. Pulmonary nodule within the anterior left upper lobe measuring 6 mm (series 4, image 34). Additionally, pleural-based pulmonary nodule within the left lower lobe, posteriorly with mild lobulation m easuring approximately 6 mm, stable in the interval. Fleischner society guidelines recommend a follow-up examination in 3 -6 months. 2. No focal airspace consolidation, pneumothorax or pleural effusion is seen. 3. Additional findings, as detailed above. One or more dose reduction techniques were used (e.g., Automated exposure contr ol, adjustment of the mA and/or kV according to patient size, use of iterative reconstruction technique). Reading Location: [facility]
== END | disposition home or self-care (01) ==
PROVIDERS: PCP Nurse Practitioner Family; Referring Provider Nurse Practitioner Family; Visit Provider Nurse Practitioner Family
DX: R91.1 Solitary pulmonary nodule (principal)
CPT/HCPCS: 71250

== ENCOUNTER → 2024-08-08 | Outpatient (CLI) | payer MEDICARE, OTHER, SELFPAY ==
--- NOTE | 2024-08-08 10:05 | BI_ITS ---
EXAM: SCRN MAMM (CAD)W/GERA BILAT 08/08/2024 CLINICAL HISTORY: F, Age 63 y/o , SCREENING BREAST CANCER RISK ASSESSMENT: Has not been calculated. TECHNIQUE: Bilateral screening digital breast tomosynthesis with 2D images. Computer aided detection. COMPARISON: Prior exam(s) dated 08/08/2023. FINDINGS: TISSUE DENSITY: The breast tissue is heterogenously dense, which may obscure small masses. Bilateral Breast Mammographic Findings: There are no other dominant masses, areas of architectural distortion, or suspicious calcifications in the right breast. A stable 12 mm partially obscured isodense mass in the superior outer aspect of the right breast is noted. A radiopaque clip is seen in the right breast. The biopsy was benign. Post biopsy site is stable. Benign round calcifications are seen in the right breast.. A 4 mm round density in the lateral, middle 3rd aspect of the left breast is noted. Further workup is indicated. A 7 mm nodular density in the lateral, junction of the anterior middle 3rd aspect of the left breast is noted on the CC view and requires additional workup. Both of these appear to be located superiorly within the breast on the gera images. Benign-appearing macrocalcifications and round microcalcifications are seen in the left breast. BI/SCRN MAMM (CAD)W/GERA BILAT IMPRESSION: Right Breast: BIRADS 2 BENIGN FINDING. Left Breast: BIRADS 0 Incomplete: Need additional imaging evaluation and/or yanna or mammograms for comparison.. OVERALL FINAL ASSESSMENT: BIRADS 0 Incomplete: Need additional imaging evaluati on and/or prior mammograms for comparison. RECOMMENDATION: Incomplete: Need additional imaging evaluation. Patient should return for a ro lled CC view and an LM view of the left breast as well as spot compression CC views of the left breast densities. An ultrasound may also be needed. A letter with findings and recommendations will be mailed to the patient. Reading Location: [id number]
== END | disposition home or self-care (01) ==
PROVIDERS: PCP Nurse Practitioner Family; Referring Provider Nurse Practitioner Family; Visit Provider Nurse Practitioner Family
DX: Z12.31 Encounter for screening mammogram for malignant neoplasm of breast (principal)
CPT/HCPCS: 77063; 77067

== ENCOUNTER → 2024-08-13 | Outpatient (CLI) | payer MEDICARE, OTHER, SELFPAY ==
--- NOTE | 2024-08-13 14:08 | BI_ITS ---
PROCEDURE: DIAG MAMM W/CAD, UNILAT REASON FOR EXAM: F, Age 63 y/o , NODULAR DENSITY COMPARISON: Prior exam(s) dating back to 11/02/2024.. TECHNIQUE: Left diagnostic digital breast tomosynthesis with 2D and 3D images. Compression spot views and 90 degree lateral views were obtained as well. Computer aided detection. FINDINGS: TISSUE DENSITY: The breast is heterogeneously dense which may obscure small masses. No definite nodular density seen at this time most likely representing superimposition of tissue. Sonographic correlation recommended. BI/DIAG MAMM W/CAD, UNILAT IMPRESSION: No definite abnormality is seen at this time. Targeted sonographic correlation recommended. BI-RADS 0: INCOMPLETE - NEED ADDITIONAL IMAGING EVALUATION. Reading Location: [place] [id number]
--- NOTE | 2024-08-13 14:08 | US_ITS ---
PROCEDURE: BREAST LIMITED UNILATERAL 08/13/2024 REASON FOR EXAM: NODULAR DENSITY Inconclusive mammogram. Evaluate. TECHNIQUE: Targeted left breast ultrasound. COMPARISON: Mm studies dated 08/13/2024, 08/08/2024 and 08/08/2023 FINDINGS: Minimally ectatic ducts are identified in the retroareolar region of the left breasts. There appears to be a cyst associated with 1 of the ducts at the 3 to 4 o'clock position, 5 cm from nipple position measuring 3 x 2 x 2 mm. There is a benign-appearing hypoechoic mass at the 3 o'clock, 7 cm from nipple position measuring 6 x 5 x 3 mm. This has an echogenic component. The margins of the mass are smooth. The mass is wider than it is tall and does not produce any posterior shadowing. There is some blood flow to the mass. It is most compatible with an intramammary lymph node and appears to correlate to 1 of the nodular masslike densities on the mammogram. There are no suspicious solid masses seen in the left breast to suggest malignancy. The other nodular masslike density seen on the mammogram appears to represent a ridge of fibroglandular tissue on the images submitted for review. US/Breast Limited Unilateral IMPRESSION: Impression: There are minimally ectatic ducts in the left breast as well as a c yst and a benign-appearing intramammary lymph node. There are no suspicious masses to suggest malignancy. The patient shoul d return in 1 year for routine yearly screening mammography. Birads: BI-RADS 2: BENIGN. RECOMMEND ANNUAL MAMMOGRAPHIC SCREENING. Reading Location: [id number]
== END | disposition home or self-care (01) ==
LOC: OPBI 14:06
PROVIDERS: PCP Nurse Practitioner Family; Referring Provider Nurse Practitioner Family; Visit Provider Nurse Practitioner Family
DX: N60.02 Solitary cyst of left breast (principal)
CPT/HCPCS: 76642; 77065

== ENCOUNTER → 2024-12-07 | Outpatient (CLI) | payer MEDICARE, OTHER, SELFPAY ==
--- NOTE | 2024-12-07 17:55 | CT_ITS ---
PROCEDURE: CHEST WITHOUT CONTRAST 12/07/2024 REASON FOR EXAM: LEFT UPPER LUNG NODULE FOLLOW UP TECHNIQUE: Chest CT without contrast. Coronal and Sagittal reconstruction series were provided. One or more dose reduction techniques were used (e.g., Automated exposure control, adjustment of the mA and/or kV according to patient size, use of iterative reconstruction technique RADIATION DOSE SUMMARY: CTDlvol: 8.72 mGy DLP: 303.02 mGycm COMPARISON: Prior study dated June 12, 2024. FINDINGS: Hardware: None Lymph nodes: Small benign-appearing bilateral axillary lymph nodes and mediastinal lymph nodes. Heart and Vasculature: The heart is not enlarged. No evidence of pericardial effusion. Coronary Artery Calcifications: Mild coronary artery calcification. Lungs and Airways: Stable 6 mm well-defined nodule in the anterior superior aspect of the left upper lobe as seen on axial image number 34. stable 6 mm noncalcified nodule in the posterior medial aspect of the left lower lobe as seen on axial number 81 Pleura: No evidence of pleural effusion. Upper Abdomen: Status post cholecystectomy. Stable calcified granuloma in the anterior aspect of the right lobe of the liver. Bones: Degenerative changes of the thoracic spine. CT/Chest without Contrast IMPRESSION: Coronary artery calcification (CAC) is is present Stable examination. 12 month follow-up recommended. Reading Location: [id number]
== END | disposition home or self-care (01) ==
LOC: CT 17:53
PROVIDERS: PCP Nurse Practitioner Family; Referring Provider Nurse Practitioner Family; Visit Provider Nurse Practitioner Family
DX: R91.8 Other nonspecific abnormal finding of lung field (principal)
CPT/HCPCS: 71250

== ENCOUNTER → 2025-02-05 | Outpatient (CLI) | payer MEDICARE, OTHER, SELFPAY ==
[2025-02-05 10:27] LABS: Hematocrit 33.4 % (37-47); Hemoglobin 9.9 g/dL (12.0-15.0); Immature Granulocytes Count 0.010 X10^3/uL (0.0-0.0); Mean Corp Hgb Conc 29.6 g/dL (32-36); Mean Corpuscular Volume 75.2 fL (81-99); Mean Platelet Vol. 9.3 fl (6.2-12.0); NRBC Flagged by Analyzer 0 % (0-5); Platelet Count 437 K/mm3 (150-450); RBC Distribution Width CV 15.8 % (11.6-14.6); RBC Distribution Width SD 43.4 fl (35.1-43.9); Red Blood Count 4.44 M/mm3 (4.2-5.4); White Blood Count 4.5 K/mm3 (4.4-11.0)
[2025-02-05 10:55] LABS: AST(SGOT) 23 U/L (<=31); Alanine Aminotransfer ALT/SGPT 13 U/L (<=34); Albumin, Serum 4.1 g/dL (3.4-4.8); Alkaline Phosphatase 87 U/L (35-104); Anion Gap 12 (5-15); BUN 14 mg/dL (4-19); BUN/Creat Ratio 16.7 RATIO (10-20); Calcium,Total 9.4 mg/dL (7.6-11.0); Carbon Dioxide 22.9 mmol/L (21.0-32.0); Chloride 104 mmol/L (98-108); Cholesterol 201 mg/dL (<=200); Globulin 3.6 g/dL (2.2-4.2); Glucose 93 mg/dL (70-99); Low Density Lipoprotein Calc. 109 mg/dL; Potassium 3.8 mmol/L (3.3-5.1); Triglycerides 80 mg/dL; Very Low Density Lipoprotein 16 mg/dL (5-40); cholesterol:hdl ratio screen 2.66
[2025-02-05 11:10] LABS: Vitamin D,25 Hydroxy 105.0 ng/mL (30-100)
== END | disposition home or self-care (01) ==
LOC: MTLAB 09:06
PROVIDERS: PCP Nurse Practitioner Family; Referring Provider Nurse Practitioner Family; Visit Provider Nurse Practitioner Family
DX: I10 Essential (primary) hypertension (principal); E78.5 Hyperlipidemia, unspecified; E55.9 Vitamin D deficiency, unspecified
CPT/HCPCS: 36415; 80053; 80061; 82306; 85025

== ENCOUNTER 2025-04-30 06:09 | Day surgery (SDC) | payer MEDICARE, OTHER, SELFPAY ==
--- NOTE | 2025-04-26 16:04 | PAT.ANE_ITS ---
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 When Was Last Pacemaker Check QUESTION #4 FULL TEXT: You/Your Family Experience fever (hyperthermia) with Anesthesia Last Oral Intake Last Oral intake: Last Oral Intake NPO since Meds taken in AM with sips of water? 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 assembler Female Yes 04/26/25 10:21 HX of Motion Sickness No 04/26/25 10:21 HX of N/V After Surgery No 04/26/25 10:21 Non-Smoker Yes 04/26/25 10:21 Duration of Surgery greater No 04/26/25 10:21 than 60 minutes Number of Risk Factors 2 04/26/25 10:21 PONV Score Moderate Risk 04/26/25 10:21 Height & Weight Height & Weight: Anesthesia: Height & Weight Height 4 ft 11 in 03/26/25 09:11 Respiratory Assessment Respiratory Assessment - tank bottom assembler: Respiratory Tract Infection Hx - tank bottom assembler Hx Respiratory Tract Infection No 04/26/25 10:21 STOP Sleep Apnea STOP Sleep Apnea - tank bottom assembler: STOP Sleep Apnea - tank bottom assembler Hx Hypertension No 04/26/25 10:21 Hx Sleep Apnea No 04/26/25 10:21 CPAP BIPAP Do you snore loudly (louder No 04/26/25 10:21 than talking or can be heard Do you often feel tired/ No 04/26/25 10:21 fatigued/ sleepy during daytime? Has anyone observed you stop No 04/26/25 10:21 breathing during sleep? STOP Results Negative 04/26/25 10:21 QUESTION #5 FULL TEXT : Do you snore loudly (louder than talking or can be heard through closed doors)? 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 Specify any problems Hx of Preganancy in last 3 No 04/26/25 10:21 Months Nurse Filling Out Transfusion VCHRISTIN 04/26/25 10:21 & Questions: Date: 04/26/25 04/26/25 10:21 Time: 10:22 04/26/25 10:21 Patient unable to answer at this time (ie. confused, unrespo /Reproduction History /Reproductive History - tank bottom assembler: /Reproductive Hx- tank bottom assembler Hx Now No 04/26/25 10:21 Gestational Age (in weeks): EDC: Hx Hx Para Hx Section SAB No 04/26/25 10:21 Does the father of the baby or his family experience fever w Father of the baby Malignant Hypertension history comment PFSH Medical History (Updated 04/26/25 @ 10:21 by Jasmina Mo) Post-menopausal Anemia History of diverticulitis Gastric reflux Wears glasses Low iron Restless legs History of hiatal hernia History of IBS Non-smoker Leg cramps Hx of colonic polyps History of benign schwannoma Pancreatitis Hemorrhoid GERD (gastroesophageal reflux disease) Home Medications ?Medication ?Instructions ?Recorded ?Last Taken ?Type omeprazole magnesium 20 mg 20 mg PO QDAY GERD 03/26/25 Unknown History tablet,delayed release (Prilosec OTC) docusate sodium 100 mg capsule 100 mg PO DAILY 5 Unknown History (Colace) Allergy/AdvReac Type Severity Reaction Status Date / Time latex Allergy Mild rash Verified 04/26/25 10:15 Family History Mother Diabetes Thyroid disorder Breast cancer inher late 60's Grandfather Heart disease Maternal Cancer Paternal - Throat CA Father Heart disease Surgical History (Updated 04/26/25 @ 10:21 by Jasmina Mo) Hx of breast biopsy History of colonoscopy (~2011) History of cholecystectomy Social History Smoking Status: Never smoker Audit: Pertinent Findings Pertinent Findings Additional pertinent findings: CT angiogram. Mild coronary artery calcification. 06/12/2024. Recommendation Anesthesia Recommendation Anesthesia recommendation: OPTIMIZED for anesthesia
[2025-04-30] VITALS (7 sets, daily range): BP systolic 92–127; BP diastolic 61–75; PULSE 16–83; RESP 14–18; TEMP 36.3–36.7; O2SAT 94–100; BMI 28.5
--- OUTSIDE RECORDS SUMMARY | 2025-04-30 06:13 | XMS RPT_ITS | CCD ---
Author Organization [facility] Care Team Providers Care Lending Manager Name Role Phone Kay ClarosCheriItalo Unavailable Unavailable Jamil, [facility] Chasity Primary Care Provider Mary Brooks Attending Provider Unavailable Dr. Nicolasa Landa Attending Provider Dr. Nicolasa Landa Referring Provider Dr. Nicolasa Landa Other Provider Jamil [facility], Chasity Primary Care Provider Jamil [facility], Chasity Attending Provider [phone] Jamil [facility], Chasity Referring Provider [phone] Jamli [facility], Chasity Primary Care Provider Jamil [facility], Chasity Attending Provider [phone] Jamil [facility], Chasity Referring Provider [phone] Jamil [facility], Chasity Primary Care Physician Jamil [facility], Chasity Attending Physician [phone] Jamil, Chasity Attending Unavailable Jamil, Chasity Referring Unavailable Jamil, Chasity Primary Care Unavailable Jamil, Chasity Attending Unavailable Jamil, Chasity Referring Unavailable Jamil, Chasity Primary Care Unavailable Jacinto Mendoza Attending Unavailable Jamil, Chasity Primary Care Unavailable Jamil, Chasity Attending Unavailable Jamil, Chasity Referring Unavailable Jamil, Chasity Primary Care Unavailable Jamil, Chasity Referring Unavailable CalabrJacinto perez Attending Unavailable Jamil, Chasity Primary Care Unavailable Jamil, Chasity Attending Unavailable Jamil, Chasity Referring Unavailable Jamil, Chasity Primary Care Unavailable Jamil, Chasity Attending Unavailable Chasity Negron Referring Unavailable Chasity Negron Primary Care Unavailable Allergies Allergy Classification Reported Allergen(s) Allergy Type Date of Onset Reaction(s) Facility (8 sources) Latex Allergy to substance 12-21-2019 rash [facility] (1 source) Latex Drug allergy (disorder) 03-26-2025 [facility] Repository Medications Current Medications Medication Drug Class(es) Dates Sig (Normalized) Sig (Original) cholecalciferol 0.025 mg oral tablet (4 sources) Vitamin D Start: 10-06-2023 take 1 tablet by mouth once daily docusate sodium 100 mg oral capsule (4 sources) Start: 10-06-2023 take 1 capsule by mouth once daily ferrous sulfate 325 mg oral tablet (6 sources) Start: 02-04-2023 take 1 tablet by mouth once [place] (Nk) (2 sources) Start: 06-22-2019 [place] (Nk) Active June 22, 2019 1:00am ondansetron 4 mg disintegrating oral tablet (4 sources) Serotonin-3 Receptor Antagonist Start: 11-18-2023 take 1 tablet by mouth every six hours as needed for nausea Completed/Discontinued Medications Medication Drug Class(es) Dates Sig (Normalized) Sig (Original) acetaminophen 325 mg oral tablet (8 sources) Start: 07-24-2018 End: 06-22-2019 take 2 tablets by mouth every six hours as needed for pain Acetaminophen 325 MG tablet Discontinued 650 mg PO EVERY 6 HOURS NEEDED as needed for Pain 30 July 24, 2018 12:00am June 22, 2019 3:42pm Start: 07-24-2018 End: 06-22-2019 take 650 mg by mouth every six hours as needed Acetaminophen Discontinued 650 MG PO EVERY 6 HOURS NEEDED July 24, 2018 12:00am June 22, 2019 3:42pm cephalexin 500 mg oral capsule (4 sources) Cephalosporin Antibacterial Start: 10-06-2023 End: 10-16-2023 take 1 capsule by mouth every twelve hours Cephalexin 500 mg capsule Discontinued 500 mg PO Q12H 20 10 0 October 06, 2023 12:00am October 15, 2023 12:00am October 16, 2023 12:06am predniSONE 10 mg oral tablet (4 sources) Start: 10-06-2023 End: 10-18-2023 Prednisone 10 mg tablet Discontinued 10 mg PO daily 30 12 0 October 06, 2023 12:00am October 17, 2023 12:00am October 18, 2023 12:04am Unspecified contact dermatitis, unspecified cause Take 4 tabs once daily days 1-3 3 tabs once daily days 4-6 2 tabs once daily days 7-9 and 1 tab once daily days 10-12. Problems Active Problems Problem Classification Problem Date Documented Da te Episodic/Chronic Abdominal pain (4 sources) Acute abdominal pain; Translations: [Unspecified abdominal pain] 11-26-2023 Episodic Allergic reactions (4 sources) Irritant contact dermatitis due to plant; Translations: [Irritant contact dermatitis due to plants, except food] 10-06-2023 Episodic Essential hypertension (1 source) Essential (primary) hypertension; Translations: [Essential (primary) hypertension] Onset: 03-13-2025 Chronic Other nutritional; endocrine; and metabolic disorders (16 sources) Body mass index 30+ - obesity; Translations: [Body mass index (BMI) 30.0-30.9, adult] 07-23-2018 Chronic Pancreatic disorders (not diabetes) (20 sources) Acute recurrent pancreatitis ; Translations: [Acute pancreatitis without necrosis or infection, unspecified] 07-05-2019 Episodic Unclassified (1 source) Unknown / UNK(Unknown) Onset: 05-20-2017 Past or Other Problems Problem Classification Problem Date Documented Da te Episodic/Chronic Nonmalignant breast conditions (9 sources) Breast lump; Translations: [Unspecified lump in the right breast, unspecified quadrant] Onset: 08-16-2024 07-05-2019 Episodic Other lower respiratory disease (1 source) Other nonspecific abnormal finding of lung field; Translations: [Other nonspecific abnormal finding of lung field] Onset: 12-12-2024 Episodic Other lower respiratory disease (1 source) Solitary pulmonary nodule; Translations: [Solitary pulmonary nodule] Onset: 06-28-2024 Episodic Other screening for suspected conditions (not mental disorders or infectious disease) (8 sources) Patient encounter status; Translations: [Encounter for screening for malignant neoplasm of colon] Onset: 08-12-2024 02-04-2023 Episodic Unclassified (1 source) C16.2 Onset: 05-20-2017 Results Test Name Value Interpretation Reference Range Facility Surgery Visit Reporton 03-26 Surgery Visit Report [facility] [address] [place] [address] OFFICE VISIT Date of Service: 03/26/25 MR#: [id number] Acct: [id number] Name: SUDHIR ENRIQUE Rep #: [id number] 2 : 1960 Provider: Dr. Jacinto figueroa MD Age/Sex: 64/F Location: [facility] Status: Signed Intake Vital Signs 11/18/23 18:23 03/26/25 09:11 Height 4 ft 11 in 4 ft 11 in Weight: 143 lb BMI 28.8 BP 121/82 H Blood Pressure Location Rt brachial Position Sitting Respiration 17 Pulse 88 Pulse Source Monitor Pulse Oximetry (%) 100 Oxygen Delivery Method room air Intake Visit Reasons: Gastroesophageal reflux disease (GERD) Chief Complaint: gerd Is patient in pain?: No Allergies latex Allergy (Mild, Verified 03/26/25 09:12) rash Medications ???Medication ???Instructions ???Recorded ???Confirmed ???Type omeprazole magnesium 20 mg 20 mg PO QDAY PRN 03/26/25 5 History tablet,delayed release (Prilosec OTC) Have you fallen in the past year?: No PFSH Medical History (Updated 03/26/25 @ 09:09 by Laura Magallanes) Wears glasses Low iron Restless legs History of hiatal hernia History of IBS Non-smoker Leg cramps Hx of colonic polyps History of benign schwannoma Pancreatitis Hemorrhoid GERD (gastroesophageal reflux disease) Surgical History History of colonoscopy ( 2011) History of cholecystectomy Family History Mother Diabetes Thyroid disorder Breast cancer inher late 60's Grandfather Heart disease Maternal Cancer Paternal - Throat CA Father Heart disease Social History Smoking Status: Never smoker HPI HPI HPI: Patient is a 64-year-old female who comes in with GERD. She says that she was recently started on a PPI if this helped but she only took it for 2 weeks and now her symptoms have returned. She also says that she thinks she has a history of a hiatal hernia. She also has difficulty swallowing occasionally. ROS General General: No weight change, appetite, fatigue, colon cancer, breast cancer or weakness HEENT HEENT: Yes difficulty swallowing; No eye injury, eye surgery, swollen glands or hoarseness Endo Endocrine: No thyroid disease, diabetes mellitus, thyroid cancer, Hair loss, heat intolerance or cold intolerance Skin Skin: No rash or changing moles Musc Musculoskeletal: No back problems, arthritis, rheumatoid arthritis, gout or joint pain Cardio Cardiovascular: No murmur, pacemaker, heart disease, atrial fibrillation, high blood pressure, heart attack, heart stent, palpitations, shortness of breath with exertion or chest pain Psych Psychiatric: No depression, anxiety or hearing voices Resp Respiratory: No shortness of breath, No sleep apnea, No cough, No COPD, No asthma, No emphysema and No wheezing Gastro Gastrointestinal: No abdominal pain, No nausea or vomiting, Yes diarrhea, Yes constipation, No blood in stool, Yes acid reflux, No hemorrhoids, No ulcers, No gallbladder problem and No black,tarry stools Additional Details: h/o pancreatitis Rocky Hematologic: No blood thinners, No blood disorders, No bleeding, Yes anemia and No blood clots Neuro Neurologic: No system reviewed and no additional complaints, except as documented, No as per HPI, No abnormal gait, No abnormal hearing, No abnormal movements, No abnormal speech, No behavioral changes, No burning sensations, No confusion, No convulsions, No disequilibrium, No dizziness, No localized weakness, No frequent falls, No headache(s), No lack of coordination, No loss of vision, No memory loss, No numbness, No other visual disturbances, No radicular pain, No restless legs, No sensory deficit, No syncope, No tingling, No tremor(s), No weakness and No other Exam Const General: cooperative Orientation: alert and oriented x3 HENMT Head: normal to inspection Neck Neck: normal visual inspection and full ROM Chest Chest palpation inspection: normal inspection of the chest Resp Effort Inspection: normal respiratory effort Auscultation: clear to auscultation bilaterally Cardio Rate: regular rate Rhythm: regular rhythm GI Inspection: non-distended Palpation: soft and nontender Skin General: no rashes or lesions noted Neuro General: patient alert and patient oriented x3 Extrem General: full ROM Psych Appearance: grossly normal Mental Status: mental status grossly normal Assessment and Plan Assessment and Plan (1) Gastroesophageal reflux disease: Plan: The patient has GERD and difficulty swallowing. I discussed performing an EGD with possible dilation. We will also evaluate for a hiatal hernia. I brief (more content not included)... Normal [facility] Absolute lymphocyte countOrd ered [facility] Lymphocytes Auto (Unsp spec) [#/Vol] 1.34 10*3/uL 0.83-4.51 [facility] Absolute neutrophil countOrd ered By: [facility] 02-05-2025 Neutrophils (Bld) [#/Vol] 2.6 10*3/uL 2.0-7.7 [facility] Anion gap in Serum or Plasma [facility] 02-05-2025 Anion gap [Moles/Vol] 12 mmol/L 5-15 [facility] Automated lymphocyte count a s percentage of total leukocytesOrdered By: [facility] on 02-05-2025 Lymphocytes/100 WBC Auto (Unsp spec) 29.7 % 19-41 [facility] BUN/creatinine ratioOrdered By: [facility] on 02-05-2025 Urea nitrogen/Creatinine [Mass ratio] 16.7 mg/mg 10-20 [facility] Basophil percentageOrdered B y: [facility] 02-05-2025 Basophils/100 WBC (Bld) 1.3 % High 0-1 [facility] Bilirubin, totalOrdered By: [facility] on 02-05-2025 Bilirubin [Mass/Vol] 0.38 mg/dL 0.00-1.30 [facility] CBC W/Diff, Automatedon 01-15 Absolute Lymph 1.34 X10 3/uL Normal 0.83-4.51 [facility] Comment on above: Performed By: #### L 500.4050, L100.0100, L500.4100, L506.1001 #### [facility] [address] [place], [place], [address] Absolute Neut 2.6 X10 3/uL Normal 2.0-7.7 [facility] Comment on above: Performed By: #### L 500.4050, L100.0100, L500.4100, L506.1001 #### [facility] [address] [place], [address] Basophils/100 WBC (Bld) 1.3 % High 0-1 [facility] Comment on above: Performed By: #### L 500.4050, L100.0100, L500.4100, [id number] #### [facility] [address] [place], [address] Eosinophils/100 WBC (Bld) 1.6 % Normal 0-5 [facility] Comment on above: Performed By: #### L 500.4050, L100.0100, L500.4100, L506.1001 #### [facility] [address] [place], [address] Erythrocyte distribution width (RBC) [Ratio] 15.8 % High 11.6-14.6 [facility] Comment on above: Performed By: #### L 500.4050, L100.0100, L500.4100, L506.1001 #### [facility] [address] [place], [address] Hematocrit (Bld) [Volume fraction] 33.4 % Low 37-47 [facility] Comment on above: Performed By: #### L 500.4050, L100.0100, L500.4100, L506.1001 #### [facility] [address] [place], [address] Hemoglobin (Bld) [Mass/Vol] 9.9 g/dL Low 12.0-15.0 [facility] Comment on above: Performed By: #### L 500.4050, L100.0100, L500.4100, L506.1001 #### [facility] [address] [place], [address] IG% 0.200 Normal 0.0-0.9 [facility] Comment on above: Result Comment: IG% - Immature Granulocytes (promyelocytes, myelocytes and metamyelocytes) > 1% indicates that a LEFT SHIFT is Present. Performed By: #### L 500.4050, L100.0100, L500.4100, L506.1001 #### [facility] [address] [place], [address] Lymphocytes/100 WBC (Bld) 29.7 % Normal 19-41 [facility] Comment on above: Performed By: #### L 500.4050, L100.0100, L500.4100, L506.1001 #### [facility] [address] [place], [address] MCH (RBC) [Entitic mass] 22.3 pg Low 27.0-32.0 [facility] Comment on above: Performed By: #### L 500.4050, L100.0100, L500.4100, L506.1001 #### [facility] [address] [place], [address] MCHC (RBC) [Mass/Vol] 29.6 g/dL Low 32-36 [facility] Comment on above: Performed By: #### L 500.4050, L100.0100, L500.4100, L506.1001 #### [facility] [address] [place], [address] MCV (RBC) [Entitic vol] 75.2 fL Low 81-99 [facility] Comment on above: Performed By: #### L 500.4050, L100.0100, L500.4100, L506.1001 #### [facility] [address] [place], [address] Monocytes/100 WBC (Bld) 10.4 % High 0-10 [facility] Comment on above: Performed By: #### L 500.4050, L100.0100, L500.4100, L506.1001 #### [facility] [address] [place], [address] Neutrophils/100 WBC (Bld) 56.8 % Normal 47-70 [facility] Comment on above: Performed By: #### L 500.4050, L100.0100, L500.4100, L506.1001 #### [facility] [address] [place], [address] Nucleated RBC (Bld) [#/Vol] 0 10*3/uL Normal 0-5 [facility] Comment on above: Performed By: #### L 500.4050, L100.0100, L500.4100, L506.1001 #### [facility] [address] [place], [address] Platelet mean volume (Bld) [Entitic vol] 9.3 fL Normal 6.2-12.0 [facility] Comment on above: Performed By: #### L 500.4050, L100.0100, L500.4100, L506.1001 #### [facility] [address] [place], [address] Platelets (Bld) [#/Vol] 437 10*3/uL Normal 150-450 [facility] Comment on above: Performed By: #### L 500.4050, L100.0100, L500.4100, L506.1001 #### [facility] [address] [place], [address] RBC (Bld) [#/Vol] 4.44 10*6/uL Normal 4.2-5.4 [facility] Comment on above: Performed By: #### L 500.4050, L100.0100, L500.4100, L506.1001 #### [facility] [address] [place], [address] RDW SD 43.4 fl Normal 35.1-43.9 [facility] Comment on above: Performed By: #### L 500.4050, L100.0100, L500.4100, L506.1001 #### [facility] [address] [place], [address] WBC (Bld) [#/Vol] 4.5 10*3/uL Normal 4.4-11.0 [facility] Comment on above: Performed By: #### L 500.4050, L100.0100, L500.4100, L506.1001 #### [facility] [address] [place], [address] Calculated very low density lipoprotein (VLDL) cholesterol measurementOrdered By: Chasity Negron on 02-05-2025 Calculated very low density lipoprotein (VLDL) cholesterol measurement 16 mg/dL 5-40 [facility] Carbon dioxide, total [Moles /volume] in Central venous bloodOrdered By: Chasity Negron on 02-05-2025 CO2 [Moles/Vol] 22.9 mmol/L 21.0-32.0 [facility] Chloride assayOrdered By: Ra claire Negron on 02-05-2025 Chloride [Moles/Vol] 104 mmol/L 98-108 [facility] Comprehensive Metabolic Prof ilon 02-05-2025 Albumin [Mass/Vol] 4.1 g/dL Normal 3.4-4.8 [facility] Comment on above: Performed By: #### L 500.4050, L100.0100, L500.4100, L506.1001 #### [facility] [address] [place], [address] Albumin/Globulin [Mass ratio] 1.2 {ratio} Normal 0.9-2.4 [facility] Comment on above: Performed By: #### L 500.4050, L100.0100, L500.4100, L506.1001 #### [facility] [address] [place], [address] ALK PHOS 87 U/L Normal 35-104 [facility] Comment on above: Performed By: #### L 500.4050, L100.0100, L500.4100, L506.1001 #### [facility] [address] [place], [address] ALT [Catalytic activity/Vol] 13 U/L Normal <=34 [facility] Comment on above: Performed By: #### L 500.4050, L100.0100, L500.4100, L506.1001 #### [facility] [address] [place], [address] AST [Catalytic activity/Vol] 23 U/L Normal <=31 [facility] Comment on above: Performed By: #### L 500.4050, L100.0100, L500.4100, L506.1001 #### [facility] [address] [place], [address] Bilirubin [Mass/Vol] 0.38 mg/dL Normal 0.00-1.30 [facility] Comment on above: Performed By: #### L 500.4050, L100.0100, L500.4100, L506.1001 #### [facility] [address] [place], [address] BUN/CRE 16.7 RATIO Normal 10-20 [facility] Comment on above: Performed By: #### L 500.4050, L100.0100, L500.4100, L506.1001 #### [facility] [address] [place], [address] Calcium [Mass/Vol] 9.4 mg/dL Normal 7.6-11.0 [facility] Comment on above: Performed By: #### L 500.4050, L100.0100, L500.4100, L506.1001 #### [facility] [address] [place], [address] Chloride [Moles/Vol] 104 mmol/L Normal 98-108 [facility] Comment on above: Performed By: #### L 500.4050, L100.0100, L500.4100, L506.1001 #### [facility] [address] [place], [address] CO2 [Moles/Vol] 22.9 mmol/L Normal 21.0-32.0 [facility] Comment on above: Performed By: #### L 500.4050, L100.0100, L500.4100, L506.1001 #### [facility] [address] [place], [address] Creatinine [Mass/Vol] 0.82 mg/dL Normal 0.70-1.20 [facility] Comment on above: Performed By: #### L 500.4050, L100.0100, L500.4100, L506.1001 #### [facility] [address] [place], [address] GAP 12 Normal 5-15 [facility] Comment on above: Performed By: #### L 500.4050, L100.0100, L500.4100, L506.1001 #### [facility] [address] [place], [address] GFR/1.73 sq M.predicted among non-blacks MDRD (S/P/Bld) [Vol rate/Area] 79 mL/min/{1.73_m2} Normal >60 [facility] Comment on above: Result Comment: mL/m in/1.73m2 CKD-EPI Creatinine Equation (2020) Performed By: #### L 500.4050, L100.0100, L500.4100, L506.1001 #### [facility] [address] [place], [address] Globulin (S) [Mass/Vol] 3.6 g/dL Normal 2.2-4.2 [facility] Comment on above: Performed By: #### L 500.4050, L100.0100, L500.4100, L506.1001 #### [facility] [address] [place], [address] Glucose [Mass/Vol] 93 mg/dL Normal 70-99 [facility] Comment on above: Performed By: #### L 500.4050, L100.0100, L500.4100, L506.1001 #### [facility] [address] [place], [address] Potassium [Moles/Vol] 3.8 mmol/L Normal 3.3-5.1 [facility] Comment on above: Performed By: #### L 500.4050, L100.0100, L500.4100, L506.1001 #### [facility] [address] [place], [address] Sodium [Moles/Vol] 139 mmol/L Normal 133-145 [facility] Comment on above: Performed By: #### L 500.4050, L100.0100, L500.4100, L506.1001 #### [facility] [address] [place], [address] T PROT 7.7 g/dL Normal 5.9-8.4 [facility] Comment on above: Performed By: #### L 500.4050, L100.0100, L500.4100, L506.1001 #### [facility] [address] [place], [address] Urea nitrogen [Mass/Vol] 14 mg/dL Normal 4-19 [facility] Comment on above: Performed By: #### L 500.4050, L100.0100, L500.4100, L506.1001 #### [facility] [address] [place], [address] Eosinophil percentageOrdered By: Chasity Negron on 02-05-2025 Eosinophils/100 WBC (Bld) 1.6 % 0-5 [facility] Erythrocyte distribution wid th ratioOrdered By: Chasity Jamil on 02-05-2025 Erythrocyte distribution width (RBC) [Ratio] 15.8 % High 11.6-14.6 [facility] Erythrocyte distribution wid th standard deviationOrdered By: Chasitytanna Negron on 02-05-2025 Erythrocyte distribution width (RBC) [Ratio] 43.4 fl 35.1-43.9 [facility] Glomerular filtration rate ( GFR) estimation/1.73 sq m using serum, plasma, or whole bOrdered By: Chasitytanna Negron on 02-05-2025 GFR/1.73 sq M.predicted among non-blacks MDRD (S/P/Bld) [Vol rate/Area] 79 mL/min/{1.73_m2} >60 [facility] Comment on above: mL/min/1.73m2 CKD-EP I Creatinine Equation (2020) Hematocrit Auto (Bld) [Volum e fraction]Ordered By: Chasity Negron on 02-05-2025 Hematocrit (Bld) [Volume fraction] 33.4 % Low 37-47 [facility] Hemoglobin measurementOrdere d By: Chasity Negron on 02-05-2025 Hemoglobin (Bld) [Mass/Vol] 9.9 g/dL Low 12.0-15.0 [facility] Immature granulocytes/100 WB C Auto (Bld)Ordered By: Chasitytanna Negron on 02-05-2025 Immature granulocytes/100 WBC (Bld) 0.200 % 0.0-0.9 [facility] Comment on above: IG% - Immature Granu locytes (promyelocytes, myelocytes and metamyelocytes) > 1% indicates that a LEFT SHIFT is Present. LDL calc ser/plasOrdered By: Chasity Negron on 02-05-2025 Cholesterol in LDL [Mass/Vol] 109 mg/dL [facility] Comment on above: Icaocbwoxn=152-375 m g/dL & Higher Rysa=442 mg/dL or greaterFriedwald Equation for LDL-C Laboratory - Chemistry and C hemistry - challengeOrdered By: Chasity Negron on 02-05-2025 AST [Catalytic activity/Vol] 23 U/L <32 [facility] Lipid Profileon 02-05-2025 CHOL:HDL 2.66 Normal [facility] Comment on above: Performed By: #### L 500.4050, L100.0100, L500.4100, L506.1001 #### [facility] [address] [place], [address] Cholesterol [Mass/Vol] 201 mg/dL Normal <=200 [facility] Comment on above: Result Comment: Chol esterol level, Desirable <200 mg/dL Borderline high cholesterol 200-239 mg/dL High cholesterol >=240 mg/dL Recommendations of the NCEP Adult Treatment Panel for the following risk-cutoff thresholds for the [place] population. Performed By: #### L 500.4050, L100.0100, L500.4100, L506.1001 #### [facility] [address] [place], [address] Cholesterol in HDL [Mass/Vol] 76 mg/dL Normal [facility] Comment on above: Result Comment: Jennifer onal Cholesterol Education Program (NCEP) guidelines: <40 mg/dL: Low HDL-cholesterol (major risk factor for CHD) >= 60 mg/dL: High HDL-cholesterol (negative risk factor for CHD) HDL-cholesterol is affected by a number of factors, e.g. smoking, exercise, hormones, sex and age. Performed By: #### L 500.4050, L100.0100, L500.4100, L506.1001 #### [facility] [address] [place], [address] Cholesterol in LDL [Mass/Vol] 109 mg/dL Normal [facility] Comment on above: Result Comment: Bord vumyhb=629-351 mg/dL Higher Bivw=856 mg/dL or greater Friedwald Equation for LDL-C Performed By: #### L 500.4050, L100.0100, L500.4100, L506.1001 #### [facility] [address] [place], [address] Cholesterol in VLDL [Mass/Vol] 16 mg/dL Normal 5-40 [facility] Comment on above: Performed By: #### L 500.4050, L100.0100, L500.4100, L506.1001 #### [facility] [address] [place], [place], [id number] Triglyceride [Mass/Vol] 80 mg/dL Normal [facility] Comment on above: Result Comment: The drugs N-Acetylcysteine and Metamizole may falsely depress this assay. Normal range: <150 mg/dL Borderline High: 150-199 mg/dL High: 200-499 mg/dL Very High: >500 mg/dL Performed By: #### L 500.4050, L100.0100, L500.4100, L506.1001 #### [facility] [address] [place], [place], [id number] MCV (mean corpuscular volume ) determinationOrdered By: Chasity Negron on 02-05-2025 MCV (RBC) [Entitic vol] 75.2 fL Low 81-99 [facility] Mean corpuscular hemoglobin (MCH) determinationOrdered By: Chasity Negron on 02-05-2025 MCH (RBC) [Entitic mass] 22.3 pg Low 27.0-32.0 [facility] Mean corpuscular hemoglobin concentration (MCHC) determinationOrdered By: Chasity Negron on 02-05-2025 MCHC (RBC) [Mass/Vol] 29.6 g/dL Low 32-36 [facility] Mean platelet volume determi nationOrdered By: Chasity Negron on 02-05-2025 Platelet mean volume (Bld) [Entitic vol] 9.3 fL 6.2-12.0 [facility] Monocyte percentageOrdered B y: Chasity Negron on 02-05-2025 Monocytes/100 WBC (Bld) 10.4 % High 0-10 [facility] Neutrophil percentageOrdered By: Chasity Negron on 02-05-2025 Neutrophils/100 WBC (Bld) 56.8 % 47-70 [facility] Nucleated red blood cell per centageOrdered By: Chasity Negron on 02-05-2025 Nucleated RBC/100 WBC (Bld) [Ratio] 0 % 0-5 [facility] Platelet countOrdered By: Ra claire Negron on 02-05-2025 Platelets (Bld) [#/Vol] 437 10*3/uL 150-450 [facility] Potassium measurement (mass/ volume)Ordered By: Chasity Negron on 02-05-2025 Potassium (Unsp spec) [Mass/Vol] 3.8 mmol/L 3.3-5.1 [facility] RBC Auto (Bld) [#/Vol]Ordere d By: Chasity Negron on 02-05-2025 RBC (Bld) [#/Vol] 4.44 10*6/uL 4.2-5.4 [facility] Screening total cholesterol/ high density lipoprotein (HDL) cholesterol ratioOrdered By: Chasity Negron on 02-05-2025 Cholesterol.total/Choles terol in HDL [Mass ratio] 2.66 {ratio} [facility] Serum creatinine measurement (mass/volume)Ordered By: Chasity Negron on 02-05-2025 Creatinine [Mass/Vol] 0.82 mg/dL 0.70-1.20 [facility] Serum globulin measurementOr dered By: Chasity Negron on 02-05-2025 Globulin (S) [Mass/Vol] 3.6 g/dL 2.2-4.2 [facility] Serum glucose measurement (m ass/volume)Ordered By: Chasity Negron on 02-05-2025 Glucose [Mass/Vol] 93 mg/dL 70-99 [facility] Serum or plasma alanine lindo otransferase (ALT) measurementOrdered By: Chasity Negron on 02-05-2025 ALT [Catalytic activity/Vol] 13 U/L <35 [facility] Serum or plasma albumin amelie urement (mass/volume)Ordered By: Chasity Negron on 02-05-2025 Albumin [Mass/Vol] 4.1 g/dL 3.4-4.8 [facility] Serum or plasma albumin/glob ulin mass ratioOrdered By: Chasity Negron on 02-05-2025 Albumin/Globulin [Mass ratio] 1.2 {ratio} 0.9-2.4 [facility] Serum or plasma alkaline froylan sphatase measurementOrdered By: Chasity Negron on 02-05-2025 ALP [Catalytic activity/Vol] 87 U/L 35-104 [facility] Serum or plasma calcium amelie urement (mass/volume)Ordered By: Chasity Negron on 02-05-2025 Calcium [Mass/Vol] 9.4 mg/dL 7.6-11.0 [facility] Serum or plasma cholesterol in HDL measurement (mass/volume)Ordered By: Chasity Negron on 02-05-2025 Cholesterol in HDL [Mass/Vol] 76 mg/dL >40 [facility] Comment on above: National Cholesterol Education Program (NCEP) guidelines:<40 mg/dL: Low HDL-cholesterol (major risk factor for CHD)>= 60 mg/dL: High HDL-cholesterol (negative risk factor for CHD)HDL-cholesterol is affected by a number of factors, e.g. smoking, exercise, hormones, sex and age. Serum or plasma cholesterol measurement (mass/volume)Ordered By: Chasity Negron on 02-05-2025 Cholesterol [Mass/Vol] 201 mg/dL <201 [facility] Comment on above: Cholesterol level, D esirable <200 mg/dLBorderline high cholesterol 200-239 mg/dLHigh cholesterol >=240 mg/dLRecommendations of the NCEP Adult Treatment Panel for the following risk-cutoff thresholds for the [place] population. Serum or plasma urea nitroge n measurement (mass/volume)Ordered By: Chasity Negron on 02-05-2025 Urea nitrogen [Mass/Vol] 14 mg/dL 4-19 [facility] Sodium levelOrdered By: Wilda Negron on 02-05-2025 Sodium [Moles/Vol] 139 mmol/L 133-145 [facility] Total proteinOrdered By: Jerald Negron on 02-05-2025 Protein [Mass/Vol] 7.7 g/dL 5.9-8.4 [facility] Triglycerides measurementOrd ered By: Chasity Negron on 02-05-2025 Triglyceride [Mass/Vol] 80 mg/dL <199 [facility] Comment on above: The drugs N-Acetylcy steine and Metamizole may falsely depress this assay. Normal range: <150 mg/dLBorderline High: 150-199 mg/dLHigh: 200-499 mg/dLVery High: >500 mg/dL Vitamin D,25 Hydroxyon 02-05 Vitamin D 25-OH 105.0 ng/mL High 30-100 [facility] Comment on above: Result Comment: Donna min D Status Deficiency: <20 ng/mL (50nmol/L) Insufficiency: 20-30 ng/mL (50-75 nmol/L) Sufficiency: 30-100 ng/mL (75-250 nmol/L) Toxicity: >100 ng/mL (>250 nmol/L) Performed By: #### L 500.4050, L100.0100, L500.4100, L506.1001 #### [facility] [address] [place], [address] White blood cell (WBC) count Ordered By: Chasity Negron on 02-05-2025 WBC (Bld) [#/Vol] 4.5 10*3/uL 4.4-11.0 [facility] Chest without Contraston Chest without Contrast [facility] [address] [place] [address] Chest without Contrast MR#: [id number] Acct: [id number] Name: SUDHIR ENRIQUE Rep #: [id number] : 1960 F 63 From: Oniel tirado MD PCP: BRET Cooney Status: REG CLI Study: Chest without Contrast Date of Exam: 12/07/24 Exam# [id number] Ordering Dr: Chasity Negron PROCEDURE: CHEST WITHOUT CONTRAST 12/07/2024 REASON FOR EXAM: LEFT UPPER LUNG NODULE FOLLOW UP TECHNIQUE: Chest CT without contrast. Coronal and Sagittal reconstruction series were provided. One or more dose reduction techniques were used (e.g., Automated exposure control, adjustment of the mA and/or kV according to patient size, use of iterative reconstruction technique RADIATION DOSE SUMMARY: CTDlvol: 8.72 mGy DLP: 303.02 mGycm COMPARISON: Prior study dated June 12, 2024. FINDINGS: Hardware: None Lymph nodes: Small benign-appearing bilateral axillary lymph nodes and mediastinal lymph nodes. Heart and Vasculature: The heart is not enlarged. No evidence of pericardial effusion. Coronary Artery Calcifications: Mild coronary artery calcification. Lungs and Airways: Stable 6 mm well-defined nodule in the anterior superior aspect of the left upper lobe as seen on axial image number 34. stable 6 mm noncalcified nodule in the posterior medial aspect of the left lower lobe as seen on axial number 81 Pleura: No evidence of pleural effusion. Upper Abdomen: Status post cholecystectomy. Stable calcified granuloma in the anterior aspect of the right lobe of the liver. Bones: Degenerative changes of the thoracic spine. CT/Chest without Contrast IMPRESSION: Coronary artery calcification (CAC) is is present Stable examination. 12 month follow-up recommended. Reading Location: [id number] CC: [facility] Chasity Negron Room Maid: Signed Normal [facility] Breast Limited Unilateralon 08-13-2024 Breast Limited Unilateral [facility] [address] [place] [id number] Breast Limited Unilateral MR#: [id number] Acct: [id number] Name: SUDHIR ENRIQUE Rep #: [id number] : 1960 F 63 From: Ángela Bennett PCP: BRET Cooney Status: REG CLI Study: Breast Limited Unilateral Date of Exam: Exam# [id number] Ordering Dr: Chasity Negron PROCEDURE: BREAST LIMITED UNILATERAL 08/13/2024 REASON FOR EXAM: NODULAR DENSITY Inconclusive mammogram. Evaluate. TECHNIQUE: Targeted left breast ultrasound. COMPARISON: Mm studies dated 08/13/2024, 08/08/2024 and 08/08/2023 FINDINGS: Minimally ectatic ducts are identified in the retroareolar region of the left breasts. There appears to be a cyst associated with 1 of the ducts at the 3 to 4 o'clock position, 5 cm from nipple position measuring 3 x 2 x 2 mm. There is a benign-appearing hypoechoic mass at the 3 o'clock, 7 cm from nipple position measuring 6 x 5 x 3 mm. This has an echogenic component. The margins of the mass are smooth. The mass is wider than it is tall and does not produce any posterior shadowing. There is some blood flow to the mass. It is most compatible with an intramammary lymph node and appears to correlate to 1 of the nodular masslike densities on the mammogram. There are no suspicious solid masses seen in the left breast to suggest malignancy. The other nodular masslike density seen on the mammogram appears to represent a ridge of fibroglandular tissue on the images submitted for review. US/Breast Limited Unilateral IMPRESSION: Impression: There are minimally ectatic ducts in the left breast as well as a cyst and a benign- appearing intramammary lymph node. There are no suspicious masses to suggest malignancy. The patient should return in 1 year for routine yearly screening mammography. Birads: BI-RADS 2: BENIGN. RECOMMEND ANNUAL MAMMOGRAPHIC SCREENING. Reading Location: [id number] CC: BRET Negron Room Maid: Signed Normal [facility] Breast imaging reportOrdered By: Oniel Glaser on 08-13-2024 Study report [facility] [address] [place] [address] DIAG MAMM W/CAD, UNILAT MR#: [id number] Acct: [id number] Name: SUDHIR ENRIQUE Rep #: [id number] : 1960 F 63 From: Cuong Glaser MD PCP: BRET Cooney Status: REG CLI Study:DIAG MAMM W/CAD, UNILAT Date of Exam: 08/13/24 Exam# [id number] Ordering Dr: Ra claire Negron PROCEDURE: DIAG MAMM W/CAD, UNILAT REASON FOR EXAM: F, Age 63 y/o , NODULAR DENSITY COMPARISON: Prior exam(s) dating back to 11/02/2024.. TECHNIQUE: Left diagnostic digital breast tomosynthesis with 2D and 3D images. Compressionspot views and 90 degree lateral views were obtained as well. Computer aided detection. FINDINGS: TISSUE DENSITY: The breast is heterogeneously dense which may obscure small masses. No definite nodular density seen at this time most likely representing superimposition of tissue. Sonographic correlation recommended. BI/DIAG MAMM W/CAD, UNILAT IMPRESSION: No definite abnormality is seen at this time. Targeted sonographic correlation recommended. BI-RADS 0: INCOMPLETE - NEED ADDITIONAL IMAGING EVALUATION. Reading Location: [facility] CC: BRET Negron ~ Room Maid: Signed [facility] DIAG MAMM W/CAD, UNILATon DIAG MAMM W/CAD, UNILAT [facility] [address] [place] [address] [id number] DIAG MAMM W/CAD, UNILAT MR#: [id number] Acct: [id number] Name: SUDHIR ENRIQUE Rep #: [id number] : 1960 F 63 From: Oniel tirado MD PCP: BRET Cooney Status: REG CLI Study: DIAG MAMM W/CAD, UNILAT Date of Exam: 08/13/24 Exam# [id number] Ordering Dr: Chasity Negron PROCEDURE: DIAG MAMM W/CAD, UNILAT REASON FOR EXAM: F, Age 63 y/o , NODULAR DENSITY COMPARISON: Prior exam(s) dating back to 11/02/2024.. TECHNIQUE: Left diagnostic digital breast tomosynthesis with 2D and 3D images. Compression spot views and 90 degree lateral views were obtained as well. Computer aided detection. FINDINGS: TISSUE DENSITY: The breast is heterogeneously dense which may obscure small masses. No definite nodular density seen at this time most likely representing superimposition of tissue. Sonographic correlation recommended. BI/DIAG MAMM W/CAD, UNILAT IMPRESSION: No definite abnormality is seen at this time. Targeted sonographic correlation recommended. BI-RADS 0: INCOMPLETE - NEED ADDITIONAL IMAGING EVALUATION. Reading Location: [facility] CC: BRET Negron Room Maid: Signed Normal [facility] Breast imaging reportOrdered By: Ángela Bryant on 08-09-2024 Study report [facility] [address] [place] [address] SCRN MAMM (CAD)W/GERA BILAT MR#: [id number] Acct: [id number] Name: SUDHIR ENRIQUE Rep #: [id number] : 1960 F 63 From: Vance Bryant DO PCP: BRET Cooney Status: REG CLI Study:SCRN MAMM (CAD)W/GERA BILAT Date of Exa m: 08/08/24 Exam# [id number] Ordering Dr: Ra claire Negron EXAM: SCRN MAMM (CAD)W/GERA BILAT 08/08/2024 CLINICAL HISTORY: F, Age 63 y/o , SCREENING BREAST CANCER RISK ASSESSMENT: Has not been calculated. TECHNIQUE: Bilateral screening digital breast tomosynthesis with 2D images. Computer aided detection. COMPARISON: Prior exam(s) dated 08/08/2023. FINDINGS: TISSUE DENSITY: The breast tissue is heterogenously dense, which may obscure small masses. Bilateral Breast Mammographic Findings: There are no other dominant masses, areas of architectural distortion, or suspicious calcifications in the right breast. A stable 12 mm partially obscured isodense mass in the superior outer aspect of the right breast is noted. A radiopaque clip is seen in the right breast. The biopsy was benign. Post biopsy site is stable. Benign round calcifications are seen in the right breast.. A 4 mm round density in the lateral, middle 3rd aspect of the left breast is noted. Further workup is indicated. A 7 mm nodular density in the lateral, junction of the anterior middle 3rd aspect of the left breast is noted on the CC view and requires additional workup. Both of these appear to be located superiorly within the breast on the gera images. Benign-appearing macrocalcifications and round microcalcifications are seen in the left breast. BI/SCRN MAMM (CAD)W/GERA BILAT IMPRESSION: Right Breast: BIRADS 2 BENIGN FINDING. Left Breast: BIRADS 0 Incomplete: Need additional imaging evaluation and/or prior mammograms for comparison.. OVERALL FINAL ASSESSMENT: BIRADS 0 Incomplete: Need additional imaging evaluation and/or prior mammograms for comparison. RECOMMENDATION: Incomplete: Need additional imaging evaluation. Patient should return for a rolled CC view and an LM view of the left breast as well as spot compression CC views of the left breast densities. An ultrasound may also be needed. A letter with findings and recommendations will be mailed to the patient. Reading Location: [id number] CC: [facility] Chasity Negron ~ Room Maid: Signed [facility] SCRN MAMM (CAD)W/GERA BILATo n 08-08-2024 SCRN MAMM (CAD)W/GERA BILAT [facility] [address] [place] [address] SCRN MAMM (CAD)W/GERA BILAT MR#: [id number] Acct: [id number] Name: SUDHIR ENRIQUE Rep #: [id number] : 1960 F 63 From: Ángela Bennett PCP: BRET Cooney Status: REG CLI Study: SCRN MAMM (CAD)W/GERA BILAT Date of Exam: 07/15 11/07 Exam# [id number] Ordering Dr: Chasity Negron EXAM: SCRN MAMM (CAD)W/GERA BILAT 08/08/2024 CLINICAL HISTORY: F, Age 63 y/o , SCREENING BREAST CANCER RISK ASSESSMENT: Has not been calculated. TECHNIQUE: Bilateral screening digital breast tomosynthesis with 2D images. Computer aided detection. COMPARISON: Prior exam(s) dated 08/08/2023. FINDINGS: TISSUE DENSITY: The breast tissue is heterogenously dense, which may obscure small masses. Bilateral Breast Mammographic Findings: There are no other dominant masses, areas of architectural distortion, or suspicious calcifications in the right breast. A stable 12 mm partially obscured isodense mass in the superior outer aspect of the right breast is noted. A radiopaque clip is seen in the right breast. The biopsy was benign. Post biopsy site is stable. Benign round calcifications are seen in the right breast.. A 4 mm round density in the lateral, middle 3rd aspect of the left breast is noted. Further workup is indicated. A 7 mm nodular density in the lateral, junction of the anterior middle 3rd aspect of the left breast is noted on the CC view and requires additional workup. Both of these appear to be located superiorly within the breast on the gera images. Benign-appearing macrocalcifications and round microcalcifications are seen in the left breast. BI/SCRN MAMM (CAD)W/GERA BILAT IMPRESSION: Right Breast: BIRADS 2 BENIGN FINDING. Left Breast: BIRADS 0 Incomplete: Need additional imaging evaluation and/or prior mammograms for comparison.. OVERALL FINAL ASSESSMENT: BIRADS 0 Incomplete: Need additional imaging evaluation and/or prior mammograms for comparison. RECOMMENDATION: Incomplete: Need additional imaging evaluation. Patient should return for a rolled CC view and an LM view of the left breast as well as spot compression CC views of the left breast densities. An ultrasound may also be needed. A letter with findings and recommendations will be mailed to the patient. Reading Location: [id number] CC: [facility]-Myrna Negron Room Maid: Signed Normal [facility] Chest without Contraston Chest without Contrast [facility] [address] [place] [address] Chest without Contrast MR#: [id number] Acct: [id number] Name: SUDHIR ENRIQUE Rep #: [id number] : 1960 F 63 From: Jesus Wellington DO PCP: BRET Cooney Status: REG CLI Study: Chest without Contrast Date of Exam: 06/12/24 Exam# [id number] Ordering Dr: Chasity Negron PROCEDURE: CHEST WITHOUT CONTRAST REASON FOR EXAM: Pulmonary nodule TECHNIQUE: Chest CT without contrast. COMPARISON: Correlation with prior CT abdomen and pelvis dated 11/18/2023 FINDINGS: Hardware: None. Lymph nodes: No mediastinal hilar or axillary lymphadenopathy. Heart and Vasculature: Normal heart size. No pericardial effusion. Thoracic aorta and pulmonary arteries have normal contours; noncontrast technique limits evaluation. Minimal vascular calcifications within the aortic arch. Coronary Artery Calcifications: None Lungs and Airways: The lungs are well aerated. Pulmonary nodule seen within the left upper lobe, anteriorly measuring approximately 6 mm (series 4, image 34). Pleural-based pulmonary nodule within the left lower lobe posteriorly with mild lobulation measuring approximately 6 mm, stable in appearance when compared to prior imaging (series 4, image 72). Remaining lung markings otherwise appears clear. Pleura: No pleural effusion. No pneumothorax. Upper Abdomen: Dystrophic calcification within the left hepatic lobe measures up to 1.3 cm, relatively stable in the interval. Bones: Mild spondylotic changes involving the thoracic spine. CT/Chest without Contrast IMPRESSION: 1. Pulmonary nodule within the anterior left upper lobe measuring 6 mm (series 4, image 34). Additionally, pleural-based pulmonary nodule within the left lower lobe, posteriorly with mild lobulation measuring approximately 6 mm, stable in the interval. Fleischner society guidelines recommend a follow-up examination in 3-6 months. 2. No focal airspace consolidation, pneumothorax or pleural effusion is seen. 3. Additional findings, as detailed above. One or more dose reduction techniques were used (e.g., Automated exposure control, adjustment of the mA and/or kV according to patient size, use of iterative reconstruction technique). Reading Location: [facility] CC: BRET Negron Room Maid: Signed Normal [facility] Absolute lymphocyte countOrd ered By: Chasity Negron on 01-19-2023 Lymphocytes Auto (Unsp spec) [#/Vol] 1.17 10*3/uL 0.83-4.51 [facility] Basophil percentageOrdered B y: Chasity Negron on 01-19-2023 Basophils/100 WBC (Bld) 1.3 % 0-1 [facility] Bilirubin [Mass/Vol] 0.50 mg/dL 0.20-1.00 [facility] Comment on above: For patients on eltr ombopag therapy, use of Dimension [place] TBIL is not recommended. Chloride [Moles/Vol] 110 mmol/L 98-107 [facility] Cholesterol [Mass/Vol] 203 mg/dL <200 [facility] Comment on above: <200 mg/dL Desirable 200-240 mg/dL Borderline >240 mg/dL High Risk Eosinophils/100 WBC (Bld) 1.8 % 0-5 [facility] Glucose [Mass/Vol] 91 mg/dL 74-106 [facility] Neutrophils (Bld) [#/Vol] 2.8 10*3/uL 2.0-7.7 [facility] Neutrophils/100 WBC (Bld) 61.5 % 47-70 [facility] Potassium [Moles/Vol] 4.4 mmol/L 3.5-5.1 [facility] Comment on above: Slight Hemolysis, Re sult may be falsely increased. Protein [Mass/Vol] 8.1 g/dL 6.4-8.2 [facility] Sodium [Moles/Vol] 140 mmol/L 136-145 [facility] Triglyceride [Mass/Vol] 77 mg/dL <199 [facility] Comment on above: The drugs N-Acetylcy steine and Metamizole may falsely depress this assay.Serum Triglycerides Reference Interval Normal <150 mg/dL Borderline high 150 - 199 mg/dL High 200 - 499 mg/dL Very High > or = 500 mg/dL WBC (Bld) [#/Vol] 4.5 10*3/uL 4.4-11.0 [facility] Blood erythrocytes count (nu mber/volume)Ordered By: Chasity Negron on 01-19-2023 RBC (Bld) [#/Vol] 4.48 10*6/uL 4.2-5.4 [facility] Blood hemoglobin measurement (mass/volume)Ordered By: Chasity Negron on 01-19-2023 Hemoglobin (Bld) [Mass/Vol] 11.3 g/dL 12.0-15.0 [facility] Blood lymphocytes/100 leukoc ytesOrdered By: Chasity Negron on 01-19-2023 Lymphocytes/100 WBC (Bld) 26.1 % 19-41 [facility] Blood monocytes/100 leukocyt esOrdered By: Chasity Negron on 01-19-2023 Monocytes/100 WBC (Bld) 8.9 % 0-10 [facility] Blood platelet mean volumeOr dered By: Chasity Negron on 01-19-2023 Platelet mean volume (Bld) [Entitic vol] 9.8 fL 6.2-12.0 [facility] Determination of erythrocyte mean corpuscular volume (MCV)Ordered By: Chasity Negron on 01-19-2023 MCV (RBC) [Entitic vol] 84.4 fL 81-99 [facility] Hematocrit Auto (Bld) [Volum e fraction]Ordered By: Chasity Negron on 01-19-2023 Hematocrit (Bld) [Volume fraction] 37.8 % 37-47 [facility] - Chemistry and C hemistry - challengeOrdered By: Chauvin Jamil on 01-19-2023 ALP [Catalytic activity/Vol] 105 U/L 45-117 [facility] ALT [Catalytic activity/Vol] 31 U/L 13-56 [facility] CO2 [Moles/Vol] 26.0 mmol/L 21.0-32.0 [facility] Globulin (S) [Mass/Vol] 4.5 g/dL 2.2-4.2 [facility] Magnesium [Mass/Vol] 2.3 mg/dL 1.6-2.6 [facility] Comment on above: Slight Hemolysis, Re sult may be falsely increased. Urea nitrogen/Creatinine [Mass ratio] 18.6 mg/mg 10-20 [facility] - Hematology and Cell countsOrdered By: Chasity Negron on 01-19-2023 Erythrocyte distribution width (RBC) [Entitic vol] 48.4 fL 35.1-43.9 [facility] Erythrocyte distribution width (RBC) [Ratio] 15.8 % 11.6-14.6 [facility] Immature granulocytes/100 WBC (Bld) 0.400 % 0.0-0.9 [facility] Comment on above: IG% - Immature Granu locytes (promyelocytes, myelocytes and metamyelocytes) > 1% indicates that a LEFT SHIFT is Present. MCH (RBC) [Entitic mass] 25.2 pg 27.0-32.0 [facility] Nucleated RBC/100 WBC (Bld) [Ratio] 0 % 0-5 [facility] MCHC Auto (RBC) [Mass/Vol]Or dered By: Chasity Negron on 01-19-2023 MCHC (RBC) [Mass/Vol] 29.9 g/dL 32-36 [facility] No Panel InformationOrdered By: Chasity Negron on 01-19-2023 Estimated GFR (MDRD) Amer 92 mL/min >60 [facility] Comment on above: GFR Calc Estimated GFR (MDRD) Non-Af Amer 76 mL/min >60 [facility] Comment on above: Non- GFR Calc Platelets bldOrdered By: Jerald Negron on 01-19-2023 Platelets (Bld) [#/Vol] 426 10*3/uL 150-450 [facility] Serum or plasma albumin amelie urement (mass/volume)Ordered By: Chasity Negron on 01-19-2023 Albumin [Mass/Vol] 3.6 g/dL 3.2-5.0 [facility] Serum or plasma albumin/glob ulin mass ratioOrdered By: Chasity Negron on 01-19-2023 Albumin/Globulin [Mass ratio] 0.8 {ratio} 0.9-2.4 [facility] Serum or plasma calcium amelie urement (mass/volume)Ordered By: Chasity Negron on 01-19-2023 Calcium [Mass/Vol] 9.0 mg/dL 8.5-10.1 [facility] Serum or plasma cholesterol in HDL measurement (mass/volume)Ordered By: Chasity Negron on 01-19-2023 Cholesterol in HDL [Mass/Vol] 80 mg/dL >40 [facility] Comment on above: The drugs N-Acetylcy steine and Metamizole may falsely depress this assay. Reference Range HDL <40 mg/dL Low HDL Cholesterol HDL >or= 60 mg/dL High HDL Cholesterol Serum or plasma cholesterol in VLDL measurement (mass/volume)Ordered By: Chasity Negron on 01-19-2023 Cholesterol in VLDL [Mass/Vol] 15 mg/dL 5-40 [facility] Serum or plasma creatinine m easurement (mass/volume)Ordered By: Chasity Negron on 01-19-2023 Creatinine [Mass/Vol] 0.81 mg/dL 0.55-1.02 [facility] Comment on above: The validity of the calculated GFR & GFRAA in patients over 70 years has not been determined. Clinical correlation is essential. Serum or plasma low density lipoprotein (LDL) cholesterol measurement (mass/volume)Ordered By: Chasity Negron on 01-19-2023 Cholesterol in LDL [Mass/Vol] 108 mg/dL 0-130 [facility] Serum or plasma urea nitroge n measurement (mass/volume)Ordered By: Chasity Negron on 01-19-2023 Urea nitrogen [Mass/Vol] 15 mg/dL 7-18 [facility] Thin prep Papanicolaou smear with manual screeningOrdered By: Chasity Negron on 01-19-2023 Thin prep Papanicolaou smear with manual screening 33 U/L 15-37 [facility] Comment on above: Slight Hemolysis, Re sult may be falsely increased. Thin prep Papanicolaou smear with manual screening 4 5-15 [facility] Cervical or vagninal specime n microscopic examination by cytology stain (reported asOrdered By: Dr. Gaspar on 07-30-2022 Cytology report Cyto stain Doc (Cvx/Vag) Comment . [facility] Comment on above: The Pap smear is a s creening test designed to aid in thedetection of premalignant and malignant conditions of theuterine cervix. It is not a diagnostic procedure andshould not be used as the sole means of detecting cervicalcancer. Both false-positive and false-negative reports dooccur. Detection in cervical specim en of any of human papilloma virus (HPV) 16, 18, 31, 33,Ordered By: Dr. Gaspar on 07-30-2022 HPV 16+18+31+33+35+39+45+51+ 52+56+58+59+66+68 DNA Probe+sig amp Ql (Cvx) Negative Negative [facility] Comment on above: This nucleic acid am plification test detects fourteen high-risk HPV types (16,18,31,33,35,39,45,51,52,56,58,59,66,68)without differentiation. Laboratory - CytologyOrdered By: Dr. Gaspar on 07-30-2022 Barrel Centerer Cyto stain Nom (Cvx/Vag) [ID] Comment . [facility] Comment on above: Chery Mejía, Cyto technologist (ASCP) Laboratory - Miscellaneous t estsOrdered By: Dr. Gaspar on 07-30-2022 Service comment (Unsp spec) [Interp] Comment . [facility] Comment on above: This liquid based Th inPrep(R) pap test was screened withthe use of an image guided system. Service comment (Unsp spec) [Interp] . . [facility] Liquid-based cerv Pap + CT/G C by RICHI w reflex to high-risk HPV for ASCUSOrdered By: Dr. Gaspar on 07-30-2022 Cytology report Cyto stain.thin prep Doc (Cvx/Vag) Comment . [facility] Comment on above: Criteria not met, HP V Genotype not performed.Performed at: - [address] [id number] Director: Merly Self MD, Phone: [phone] at: = - [facility] [id number] Director: Merly Self MD, Phone: [phone] No Panel InformationOrdered By: Dr. Gaspar on 07-30-2022 Pathology report final diagnosis Narrative Comment . [facility] Comment on above: NEGATIVE FOR INTRAEP ITHELIAL LESION OR MALIGNANCY.CELLULAR CHANGES ASSOCIATED WITH ATROPHY ARE PRESENT. Latasha 05-20-2017 GI -- ----Patient: SUDHIR ENRIQUE ----SPECIMEN: GI--18 Collection Date: 05/20/17 Received: 05/25/17 Status: LEATHA Sahni Dr.: Rafal Claros MD Ph# Othr. Dr.: Rosas Wilkerson MD Material for Examination: A GASTRIC BX, R/O H. PYLORI PRE-OP DIAGNOSIS: MALIGNANT NEOPLASM BODY OF STOMACH POST-OP DIAGNOSIS: NONE GIVEN SURGICAL PROCEDURE: NONE GIVEN SPECIMEN COMMENTS: RECEIVED FROM [facility], [address] [place] [address] 2 Miguel SLIDES LABELED [id number] SUDHIR ENRIQUE L1,[id number] A. Gastric biopsy: Gastric mucosa with mild chronic gastritis but without lymphoepithelial lesions, ulceration, dysplasia or goblet cell metaplasia. No H. pylori found on Miguel sections. Negative for malignancy.COMMENT The findings from the patient's endoscopic report reveal no mass lesion identified andonly mild gastritis in the antrum with a small hiatal hernia and normal duodenum found.GROSS DESCRIPTION The specimen is grossed and processed at [facility] The following is their gross description:Received in formalin, labeled gastric are 2 irregular, soft, pink-loera fragments of tissueranging in size from 0.1-0.3 cm. The specimen is entirely submitted in one cassette.MICROSCOPIC DESCRIPTION Four (2 routine and 2 deeper sections) Miguel stained slides examined.COPIES TO: Rosas Wilkerson MD, Zuo-Liang MDSigned Verified/Reviewed by CORNELIO EVERETT MD 05/30/17 This dictation was created using voice recognition software. Phonetic and/or minor grammatical errors may exist. [facility] NAME: SUDHIR ENRIQUE Pathology and Laboratory Medicine UNIT#: [id number] LOC: [facility] Derrick Hand: Lubna Marin M.D. [id number] ROOM/BED: [facility] : 56 AGE/SEX: 56/F ORD.Rafal Jameson MD END OF REPORT Normal [facility] Vital Signs Date Time Vital Sign Value Performing Clinician Faci rafaelay 03-09-2023 09:48-0400 Body temperature 98.4 [degF] [facility] Chasity Jamil Work Phone: [facility] 03-09-2023 09:48-0400 Diastolic blood pressure 65 mm[Hg] [facility] Chasity Jamil Work Phone: [facility] 03-09-2023 09:48-0400 Heart rate 77 /min [facility] Chasity Jamil Work Phone: [facility] 03-09-2023 09:48-0400 Respiratory rate 16 /min [facility] Chasity Jamil Work Phone: [facility] 03-09-2023 09:48-0400 SaO2% (BldA) [Mass fraction] 98 % [facility] Chasity Jamil Work Phone: [facility] 03-09-2023 09:48-0400 Systolic blood pressure 104 mm[Hg] [facility] Chasity Jamil Work Phone: [facility] 03-09-2023 08:41-0400 Body height 149.86 cm [facility] Chasity Jamil Work Phone: [facility] 03-09-2023 08:41-0400 Body mass index (BMI) [Ratio] 28.6 kg/m2 [facility] Chasity Jamil Work Phone: [facility] 03-09-2023 08:41-0400 Body weight 64.41 kg [facility] Chasity Jamil Work Phone: [facility] 02-04-2023 13:58-0400 Body mass index (BMI) [Ratio] 28.5 kg/m2 [facility] Chasity Jamil Work Phone: [facility] 02-04-2023 13:58-0400 Body weight 63.95 kg [facility] Chasity Jamil Work Phone: [facility] Encounters Encounter Date Encounter Type Care Provider Facility Start: 04-30-2025 ambulatory Jacintoyair Mendoza Sacha lity:[facility] Start: 03-26-2025 End: 03-26-2025 ambulatory Chasity Negron Facility:[facility] Start: 02-05-2025 End: 02-05-2025 ambulatory Chasity Negron [facility] Work Phone: [facility] [place] Start: 02-05-2025 End: 02-05-2025 Patient encounter procedure Chasity Negron [facility] [place] Work Phone: Start: 02-05-2025 End: 02-05-2025 ambulatory Chasity Jamil Facility:[facility] Start: 12-07-2024 End: 12-07-2024 ambulatory Chasity Negrno [facility] Work Phone: -Cat Scan [facility] Start: 12-07-2024 End: 12-07-2024 Patient encounter procedure Chasity Negron [facility] -[facility] Work Phone: Start: 12-07-2024 End: 12-07-2024 ambulatory Chasity Negron Facility:[facility] Start: 08-13-2024 End: 08-13-2024 ambulatory Chasity Negron [facility] Work Phone: [facility] Work Phone: Start: 08-13-2024 End: 08-13-2024 Patient encounter procedure Chasity Negron [facility] -Outpatient Breast Imaging Work Phone: Start: 08-13-2024 End: 08-13-2024 ambulatory Chasity Negron Facility:[facility] Start: 08-08-2024 End: 08-08-2024 ambulatory Chasity Negron [facility] Work Phone: [facility] Work Phone: Start: 08-08-2024 End: 08-08-2024 Patient encounter procedure Chasity Negron [facility] -Outpatient Breast Imaging Work Phone: Start: 08-08-2024 End: 08-08-2024 ambulatory Chasitytanna Negron Facility:[facility] Start: 06-12-2024 End: 06-12-2024 Patient encounter procedure Chasity Negron [facility] -Cat Scan, [facility] Work Phone: Start: 06-12-2024 End: 06-12-2024 ambulatory Chasity Negron Facility:[facility] Start: 08-08-2023 End: 08-08-2023 ambulatory [facility] Work Phone: Start: 08-08-2023 End: 08-08-2023 Patient encounter procedure [facility]-Outpatient Breast Imaging Work Phone: Start: 03-09-2023 Non-patient / Non-visit [facility] Chasity Negron Work Phone: [facility] Start: 03-09-2023 End: 03-09-2023 Admission to same day surgery center [facility] Chasity Negron Work Phone: [facility]-Endoscopy Work Phone: Start: 03-09-2023 End: 03-09-2023 ambulatory [facility] Chasity Negron Work Phone: [facility] Work Phone: Start: 02-04-2023 Non-patient / Non-visit [facility] Chasity Negron Work Phone: [facility] Work Phone: Start: 01-19-2023 End: 01-19-2023 Patient encounter procedure [facility] Chasity Negron Work Phone: [facility]-Mindi Tiwari [facility] Start: 08-04-2022 End: 08-04-2022 ambulatory [facility] Work Phone: Start: 08-04-2022 End: 08-04-2022 Patient encounter procedure [facility]-Outpatient Breast Imaging Start: 07-30-2022 End: 07-30-2022 ambulatory [facility] Work Phone: Start: 07-30-2022 End: 07-30-2022 Patient encounter procedure [facility]-Laboratory, Specimen Start: 05-20-2017 Ambulatory Rafal Claros Facility :[facility] Procedures Date Procedure Procedure Detail Performing Clinician Start: 02-05-2025 Vitamin D, 25-hydrox y measurement Chasity Negron [facility] Work Phone: Comment on above: Vitamin D StatusDefi ciency: <20 ng/mL (50nmol/L)Insufficiency: 20-30 ng/mL (50-75 nmol/L)Sufficiency: 30-100 ng/mL (75-250 nmol/L)Toxicity: >100 ng/mL (>250 nmol/L) Start: 12-07-2024 CT of chest without contrast Chasity Negron [facility] Work Phone: Start: 08-13-2024 Mammography Chasity warner [facility] Work Phone: Start: 08-13-2024 Ultrasonography of breast Chasity Negron [facility] Work Phone: Start: 08-08-2024 Screening mammography R tono Negron [facility] Work Phone: Start: 06-12-2024 CT of chest without contrast Chasity Negron [facility] Work Phone: Start: 08-08-2023 Screening mammography Start: 03-09-2023 Colonoscopy [facility] Neva Negron Work Phone: Start: 08-04-2022 Screening mammography Plan of Treatment Date Care Activity Detail Author Start: 03-09-2023 Patient discharge [facility] Path report.final Dx Spec [facility] Patient referral [facility] Work Phone: [facility] Payers Date Payer Category Payer Self-pay [id number] 2024 Medicare [id number] [id number] Unknown [id number] 2017 Unknown [id number] Unknown [id number] 2.16.8 [id number] Unknown [id number] 2.16.8 [id number] Unknown [id number] 2.16.8 [id number] Unknown [id number] 2.16.8 [id number] Unknown [id number] 2.16.8 [id number] Unknown [id number] 2.16.8 [id number] Unknown [id number] 2.16.8 [id number] Social History Date Type Detail Facility Start: 12-21-2019 End: 03-09-2023 Tobacco smoking status NHIS Unknown if ever smoked [facility] Start: 04-16-2017 None [facility] Start: 07-23-2018 With Family [facility] Start: 04-16-2017 Non-smoker [facility] Start: 1960 Sex Assigned At Female [facility] Start: 11-18-2023 Tobacco smoking status NHIS Never smoked tobacco (finding) [facility] Start: 08-12-2024 End: 08-16-2024 Sex Female (finding) [facility] Sex Female [facility] NEGATED: Highlighted row [facility] Goals Date Patient Goal Desired Activity /State Mental Status Date Assessment Result Facility 03-09-2023 Cognitive function Voice/Name;Touch/Matt craven [facility] Work Phone: Radiology Diagnostic study note 12-11-2024 Note Date & Type Note Facility 12-11-2024 Radiology Diagnostic study note [facility] Imaging Services [address] [place], [place] [address] Chest without Contrast MR#: [id number] Acct: [id number] Name: SUDHIR ENRIQUE Rep #: [id number] : 1960 F 63 From: Cuong Glaser MD PCP: BRET Cooney Status: REG CLI Study:Chest without Contrast Date of Exam: 12/07/24 Exam# [id number] Ordering Dr: Ra claire Negron PROCEDURE: CHEST WITHOUT CONTRAST 12/07/2024 REASON FOR EXAM: LEFT UPPER LUNG NODULE FOLLOW UP TECHNIQUE: Chest CT without contrast. Coronal and Sagittal reconstruction series were provided. One or more dose reduction techniques were used (e.g., Automated exposure control, adjustment of the mA and/or kV according to patient size, use of iterative reconstruction technique RADIATION DOSE SUMMARY: CTDlvol: 8.72 mGy DLP: 303.02 mGycm COMPARISON: Prior study dated June 12, 2024. FINDINGS: Hardware: None Lymph nodes: Small benign-appearing bilateral axillary lymph nodes and mediastinal lymph nodes. Heart and Vasculature: The heart is not enlarged. No evidence of pericardial effusion. Coronary Artery Calcifications: Mild coronary artery calcification. Lungs and Airways: Stable 6 mm well-defined nodule in the anterior superior aspect of the left upper lobe as seen on axial image number 34. stable 6 mm noncalcified nodule in the posterior medial aspect of the left lower lobe as seen on axial number 81 Pleura: No evidence of pleural effusion. Upper Abdomen: Status post cholecystectomy. Stable calcified granuloma in the anterior aspect of the right lobe of the liver. Bones: Degenerative changes of the thoracic spine. CT/Chest without Contrast IMPRESSION: Coronary artery calcification (CAC) is is present Stable examination. 12 month follow-up recommended. Reading Location: [id number] CC: [facility] Ne[facility] ~ Room Maid: Signed [facility] Radiology Diagnostic study note 08-13-2024 Note Date & Type Note Facility 08-13-2024 Radiology Diagnostic study note [facility] Imaging Services [address] [place] [address] Breast Limited Unilateral MR#: [id number] Acct: [id number] Name: SUDHIR ENRIQUE Rep #: [id number] : 1960 F 63 From: Vance Bryant DO PCP: BRET Cooney Status: REG CLI Study:Breast Limited Unilateral Date of Exam: 08/13/24 Exam# [id number] Ordering Dr: Ra claire Negron PROCEDURE: BREAST LIMITED UNILATERAL 08/13/2024 REASON FOR EXAM: NODULAR DENSITY Inconclusive mammogram. Evaluate. TECHNIQUE: Targeted left breast ultrasound. COMPARISON: Mm studies dated 08/13/2024, 08/08/2024 and 08/08/2023 FINDINGS: Minimally ectatic ducts are identified in the retroareolar region of the left breasts. There appears to be a cyst associated with 1 of the ducts at the 3 to 4 o'clock position, 5 cm from nipple position measuring 3 x 2 x 2 mm. There is a benign-appearing hypoechoic mass at the 3 o'clock, 7 cm from nipple position measuring 6 x 5 x 3 mm. This has an echogenic component. The margins of the mass are smooth. The mass is wider than it is tall and does not produce any posterior shadowing. There is some blood flow to the mass. It is most compatible with an intramammary lymph node and appears to correlate to 1 of the nodular masslike densities on the mammogram. There are no suspicious solid masses seen in the left breast to suggest malignancy. The other nodular masslike density seen on the mammogram appears to represent a ridge of fibroglandular tissue on the images submitted for review. US/Breast Limited Unilateral IMPRESSION: Impression: There are minimally ectatic ducts in the left breast as well as a cyst and a benign-appearing intramammary lymph node. There are no suspicious masses to suggest malignancy. The patient shouldreturn in 1 year for routine yearly screening mammography. Birads: BI-RADS 2: BENIGN. RECOMMEND ANNUAL MAMMOGRAPHIC SCREENING. Reading Location: [id number] CC: BRET Negron ~ Room Maid: Signed [facility] Procedure note 03-09-2023 Note Date & Type Note Facility 03-09-2023 Procedure note [facility] Procedure note 03-09-2023 Note Date & Type Note Facility 03-09-2023 Procedure note [facility] Clinical Note 07-30-2022 Note Date & Type Note Facility 07-30-2022 Note [facility] Pap Smear Specimen Adequacy July 30, 2022 9:29am Comment . Satisfactory for evaluation. Endocervical component may not bedistinguished in cases of atrophy. Comment on above: Satisfactory for francisco luation. Endocervical component may not bedistinguished in cases of atrophy. Evaluation note Note Date & Type Note Facility Evaluation note No assessment information availa ble [facility] Work Phone: Evaluation note Note Date & Type Note Facility Evaluation note Diagnosis Onset Date Encounter for screening for malignant neoplasm of colon acute [facility] Work Phone: History and physical note Note Date & Type Note Facility History and physical note Note Date/Time March 09, 2023 8:53am [facility] Medical Records Department [address] [place] [address] History & Physical Exam 03/09/23 0852 MR#: [id number] Acct: [id number] Name: SUDHIR ENRIQUE Rep #:[id number] : 1960 62 From: Nicolasa Landa MD PCP: BRET Cooney Status:[facility] Location: [place] [address] HPI - General General Date of Service: 03/09/23 HPI Narrative SUDHIR ENRIQUE, is a 62 F who presents for screening colonoscopy. Patient last colonoscopy was 10 years ago patient did have a couple polyps was told 10 years per patient by Dr. Gray. Patient has bowel movements mostly every day. Patient denies any chronic abdominal pain/nausea/vomiting/reflux. Patient denies any family history of colon cancer. [facility] Medical History (Updated 03/02/23 @ 12:18 by Margareth Mcclendon) GERD (gastroesophageal reflux disease) Hemorrhoid History of benign schwannoma History of hiatal hernia History of IBS Hx of colonic polyps Leg cramps Low iron Non-smoker Pancreatitis Restless legs Wears glasses Home Medications ferrous sulfate 325 mg (65 mg iron) tablet (Feosol) 325 mg PO .2x a week 02/04/23 [History Last Taken Unknown] Allergy/AdvReac Type Severity Reaction Status Date / Time latex Allergy Mild rash Verified 03/02/23 12:11 Family History Mother Diabetes Thyroid disorder Breast cancer Grandfather Heart disease Surgical History (Updated 03/02/23 @ 12:18 by Margareth Mcclendon) History of cholecystectomy History of colonoscopy (~2011) Social History Smoking Status: Never smoker Past Medical/Surgical History Planned Operation Planned Operative Procedure/s: CSCOPE Previous Hospitalizations/Surgeries HX Hospitalizations: No Any Problems With Anesthesia: No You/Your Family Experience Fever (Hyperthermia) With Anes: No Cholinesterase deficiency: No Cardiovascular Hx Chest Pain within Last 2 months: No Hx of Irregular Heartbeat and/or Afib: No Hx Heart Attack: No Hx Hypertension: No Hx Cardiac Surgery/Stents/Etc.: No Hx Pain in Legs when Walking/Leg Cramps: No Respiratory Hx Chronic Obstructive Pulmonary Disease (COPD): No Hx Emphysema: No Hx Sleep Apnea: No Hx Respiratory Tract Infection/Cold (presently): No Do You Snore Loudly (louder than talking or can be heard): Yes Do You Often Feel Tired/ Fatigued/ Sleepy Dring Daytime?: No Has Anyone Observed You Stop Breathing During Sleep?: No Result (for STOP score): Negative Hx Smoking: No Smoking Status: Never smoker Gastrointestinal Hx Gastrointestinal Bleed: No Hx Ulcer: No Difficulty Chewing/Swallowing: No Hx Unplanned Weight Loss of 20#: No Neurological Hx Seizures: No Hx Multiple Sclerosis: No Hx Parkinson's Disease: No Does patient have nerve stimulator: No Blood Disorder Hx Hepatitis: No Hx Cirrhosis: No Hx Anemia: No Hx Blood Disorders: No Reproduction : No Genitourinary Hx Renal Disease: No Hx Dialysis: No Musculoskeletal Hx Arthritis: No Hx Rheumatoid Arthritis: No Endocrine Hx Diabetes: No Thyroid Disease: No Psycho/Social Hx Substance Use: No Hx Alcohol Use: No Hx Anxiety: No Hx Depression: No Hx Dementia: No Miscellaneous Hx Cancer: No Recent Exposure to Contagious Disease: No Allergies latex Allergy (Mild, Verified 03/02/23 12:11) rash Maternal: Family History Mother Diabetes Thyroid disorder Breast cancer Grandfather Heart disease Heart Disease Paternal: Family History Mother Diabetes Thyroid disorder Breast cancer Grandfather Heart disease Heart Disease Discharge Is Pt Admitted From a [facility], or a Assisted: No After D/C, Where Do you Plan to Go: Return Home Vital Signs Vital Signs Vital Signs: 03/09/23 08:41 03/09/23 08:41 Temperature 98.5 F Temperature Source Temporal Pulse Rate 72 Respiratory Rate 18 Respiratory Pattern Normal Blood Pressure 120/70 Blood Pressure Mean 86 Blood Pressure Source Monitor Blood Pressure Position Semi-Fowlers Blood Pressure Location Left Arm Pulse Ox 100 Oxygen Delivery Method Room Air Weight Weight: 142 lb Body Mass Index (BMI) 28.6 Physical Exam Const alert, oriented x3 and no apparent distress HEENT normocephalic and head/scalp atraumatic Resp normal respiratory effort Cardio regular rate GI soft to palpation and non-tender; Negative for non-distended Palpation: Negative for guarding Extremity no clubbing, cyanosis or edema Skin no rashes or lesions noted Neuro CN's II-XII intact bilaterally Psych mental status grossly normal Assessment & Plan Assessment/Plan (1) Encounter for screening for malignant neoplasm of colon: Surgery Risks - Colonoscopy I discussed with the patient the risks of the procedure: Yes Risks Include but are not Limited To: Risks include but are not limited to: Bleeding, perforation requiring further surgery, inability to complete colonoscopy requiring barium enema. 03/09/23 0853 <Electronically signed by Nicolasa Landa MD> Cosigner Signature (if applicable): CC: [facility] LABORATORYNita Negron; Dr. Nicolasa Landa MD~ Signed [facility] Work Phone: Reason for referral (narrative) Note Date & Type Note Facility Reason for referral (narrative) No reason for referral information available [facility] Work Phone: Summary Purpose Family History No Family History Records Found Relationship Condition Age at Onset Recorded Date/T nitin mother Diabetes mellitus Unknown Disorder of thyroid Unknown Malignant neoplasm of breast Unknown grandfather Cardiac disease Unknown Relationship Condition Age at Onset Recorded Date/T nitin mother Diabetes mellitus Unknown Disorder of thyroid Unknown Malignant neoplasm of breast Unknown grandfather Cardiac disease Unknown Malignant neoplasm Unknown father Cardiac disease Unknown Advance Directives No Advanced Directives Records Found Advance Directive Response Recorded Date/ Time Living Will Yes July 23, 2018 5:42am Power of Compounder Yes July 23 5:42am Advance Directive Response Recorded Date/ Time Name of Medical Power of Compounder MARTHA KWONG - SISTER March 02, 2023 12:12pm Living Will Yes March 02 12:12pm Power of Compounder Yes March 02, 2023 12:12pm Advance Directive Response Recorded Date/ Time Living Will Yes March 02 12:12pm Power of Compounder Yes March 02, 2023 12:12pm Chief Complaint and Reason for Visit Chief Complaint SCREENING Chief Complaint Amb Documentation Reason for Visit Encounter for screen ing for malignant neoplasm of colon Chief Complaint SCREENING Chief Complaint Admit Date PULMONARY NODULE June 12, 2024 7 :33am SCREENING August 08, 2024 10: 02am Chief Complaint Admit Date PULMONARY NODULE June 12, 2024 7 :33am SCREENING August 08, 2024 10: 02am ABN MAMM August 13, 2024 1:5 9pm Chief Complaint Admit Date Other nonspecific abnormal finding of jamie ng field December 07, 2024 5:53pm Chief Complaint Admit Date Other nonspecific abnormal finding of jamie ng field December 07, 2024 5:53pm FASTING February 05, 2025 9:03am Additional Source Comments INFORMATION SOURCE (unrecogn ized section and content) DATE CREATED AUTHOR 11/08/2017 [facility] Dahiana Perry DATE CREATED AUTHOR AUTHOR'S ORGANIZ ATION 03/27/2025 [facility] Care Teams (unrecognized sec tion and content) Team Status: Active Member Role Status Dates Dr. Rosas Wilkerson MD Family Provider Active No Primary Care Physician Primary Care Provider Active Team Status: Inactive Member Role Status Dates Dr. Siobhan Gaspar DO Attending Provider Active Team Status: Active Member Role Status Dates Dr. Siobhan Gaspar DO Attending Provider, Referrin g Provider Active No Primary Care Physician Primary Care Provider Active Team Status: Inactive Member Role Status Dates Dr. Siobhan Gaspar DO Attending Provider, Referrin g Provider Active No Primary Care Physician Primary Care Provider Active Team Status: Active Member Role Status Dates Dr. Rosas Wilkerson MD Family Provider Active Chasity Negron NP-Myrna Primary Care Provider Active Team Status: Active Member Role Status Dates BRET Cooney Primary Care Provider Active Mary Brooks Attending Provider Active Team Status: Active Member Role Status Dates Chasity Negron [facility] Primary Care Provider Active Dr. Nicolasa Landa MD Attending Provi sanaz, Referring Provider, Other Provider Active Team Status: Inactive Member Role Status Dates Chasity Negron [facility] Primary Care Provide r, Attending Provider, Referring Provider Active Team Status: Inactive Member Role Status Dates Chasity Negron [facility] Primary Care Provider Active Dr. Nicolasa Landa MD Attending Provider, Referring Provider Active Team Status: Active Member Role Status Dates Chasity Negron [facility] Primary Care Provider Active Team Status: Inactive Member Role Status Dates Chasity Negron [facility] Primary Care Provider Active Start: June 12, 2024 End: June 12, 2024 Chasity Negron NP-C Attending Provider Active St art: June 12, 2024 End: June 12, 2024 Chasity Negron [facility] Referring Provider Active St art: June 12, 2024 End: June 12, 2024 Team Status: Inactive Member Role Status Dates Chasity Negron [facility] Primary Care Provider Active Start: August 08, 2024 End: August 08, 2024 Chasity Negron NP-C Attending Provider Active St art: August 08, 2024 End: August 08, 2024 Chasity Negron [facility] Referring Provider Active St art: August 08, 2024 End: August 08, 2024 Team Status: Inactive Member Role Status Dates Chasity Negron [facility] Primary Care Provider Active Start: August 13, 2024 End: August 13, 2024 Chasity Negron [facility] Attending Provider Active St art: August 13, 2024 End: August 13, 2024 Chasity Negron [facility] Referring Provider Active St art: August 13, 2024 End: August 13, 2024 Team Status: Active Member Role/Relationship Status Dates Chasity Negron [facility] Primary Care Provider Active Team Status: Inactive Member Role/Relationship Status Dates Chasity Negron [facility] Primary Care Provider Active Start: December 07, 2024 End: December 07, 2024 Chasity Negron [facility] Attending Provider Active St art: December 07, 2024 End: December 07, 2024 Chasity Negron [facility] Referring Provider Active St art: December 07, 2024 End: December 07, 2024 Team Status: Active Member Role/Relationship Status Dates Chasity Negron [facility] Primary care physician Active Team Status: Inactive Member Role/Relationship Status Dates Chasity Negron [facility] Primary care physician Active Start: December 07, 2024 End: December 07, 2024 Chasity Negron , [facility] Attending physician Active S tart: December 07, 2024 End: December 07, 2024 Chasity Negron , [facility] Referring Provider Active St art: December 07, 2024 End: December 07, 2024 Team Status: Inactive Member Role/Relationship Status Dates Chasity Negron [facility] Primary care physician Active Start: February 05, 2025 End: February 05, 2025 Chasity Negron [facility] Attending physician Active S tart: February 05, 2025 End: February 05, 2025 Chasity Negron , [facility] Referring Provider Active St art: February 05, 2025 End: February 05, 2025 Goals (unrecognized section and content) Goals may be documented in a n alternate sectionGoals may be documented in an alternate sectionGoals may be documented in an alternate sectionGoals may be documented in an alternate sectionGoals may be documented in an alternate sectionGoals may be documented in an alternate sectionGoals may be documented in an alternate section FOR RECORDS PERTAINING TO PATIENTS WHO ARE OR HAVE BEEN ENROLLED IN A CHEMICAL DEPENDENCY/SUBSTANCEABUSE PROGRAM, SOME INFORMATION MAY BE OMITTED. This clinical summary was aggregated from multiple sources. Caution should be exercised in using it in the provision of clinical care. This summary normalizes information from multiple sources, and as a consequence, information in this document may materially change the coding, format and clinical context of patient data. In addition, data may be omitted in some cases. CLINICAL DECISIONS SHOULD BE BASED ON THE PRIMARY CLINICAL RECORDS. [facility] [employer] [facility]. provides no warranty or guarantee of the accuracy or completeness of information in this document.
--- NOTE | 2025-04-30 06:40 | PRE.ANES_ITS ---
ASA Classification* ASA Classification ASA Classification: 2 Assessment & Plan Anesthesia* Anesthesia Assessment Anesthesia Assessment: Discussed sedation and/or anesthesia options, risks, benefits, and alternatives with patient/parents/legal guardian/POA. Questions invited. The patient/parents/legal guardian/POA seems to understand and agrees to proceed with anesthesia plan. Reviewed the physical assessment, medical history, allergy history and patient home medications list prior to surgery/procedure/anesthetic and documented any changes. Performed airway and anesthesia risk assessments. Anesthesia Type Anesthesia Type: MAC Anesthesia Focused Assessment* Airway Assessment Mouth opens: >3 cm Mallampati Score: II Labs Anesthesia Preop lab: CBC WBC, (4.4-11.0) 4.5 K/mm3 02/05/25, 09:09 RBC, (4.2-5.4) 4.44 M/mm3 02/05/25, 09:09 Hgb, (12.0-15.0) 9.9 g/dL L 02/05/25, 09:09 Hct, (37-47) 33.4 % L 02/05/25, 09:09 Plt Count, (150-450) 437 K/mm3 02/05/25, 09:09 CHEMISTRY Potassium, (3.3-5.1) 3.8 mmol/L 02/05/25, 09:09 Sodium, (133-145) 139 mmol/L 02/05/25, 09:09 Magnesium, (1.6-2.6) 2.3 mg/dL 01/19/23, 09:37 BUN, (4-19) 14 mg/dL 02/05/25, 09:09 Creatinine, (0.70-1.20) 0.82 mg/dL 02/05/25, 09:09 Glucose, (70-99) 93 mg/dL 02/05/25, 09:09 COAG Pre-Assessment Diagnosis/Proposed Procedure Planned Operative Procedure(s): EGD Anesthesia History 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 When Was Last Pacemaker Check QUESTION #4 FULL TEXT: You/Your Family Experience fever (hyperthermia) with Anesthesia Last Oral Intake Last Oral intake: Last Oral Intake NPO since Meds taken in AM with sips of water? Meds patient instructed to take am of surgery PONV PONV - automotive electrician: PONV - automotive electrician Female Yes 04/26/25 10:21 HX of Motion Sickness No 04/26/25 10:21 HX of N/V After Surgery No 04/26/25 10:21 Non-Smoker Yes 04/26/25 10:21 Duration of Surgery greater No 04/26/25 10:21 than 60 minutes Number of Risk Factors 2 04/26/25 10:21 PONV Score Moderate Risk 04/26/25 10:21 Height & Weight Height & Weight: Anesthesia: Height & Weight Height 4 ft 11 in 03/26/25 09:11 Respiratory Assessment Respiratory Assessment - automotive electrician: Respiratory Tract Infection Hx - automotive electrician Hx Respiratory Tract Infection No 04/26/25 10:21 STOP Sleep Apnea STOP Sleep Apnea - automotive electrician: STOP Sleep Apnea - automotive electrician Hx Hypertension No 04/26/25 10:21 Hx Sleep Apnea No 04/26/25 10:21 CPAP BIPAP Do you snore loudly (louder No 04/26/25 10:21 than talking or can be heard Do you often feel tired/ No 04/26/25 10:21 fatigued/ sleepy during daytime? Has anyone observed you stop No 04/26/25 10:21 breathing during sleep? STOP Results Negative 04/26/25 10:21 QUESTION #5 FULL TEXT : Do you snore loudly (louder than talking or can be heard through closed doors)? 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 Specify any problems Hx of Preganancy in last 3 No 04/26/25 10:21 Months Nurse Filling Out Transfusion VCHRISTIN 04/26/25 10:21 & Questions: Date: 04/26/25 04/26/25 10:21 Time: 10:22 04/26/25 10:21 Patient unable to answer at this time (ie. 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: /Reproductive Hx- automotive electrician Hx Now No 04/26/25 10:21 Gestational Age (in weeks): EDC: Hx Hx Para Hx Section SAB No 04/26/25 10:21 Does the father of the baby or his family experience fever w Father of the baby Malignant Hypertension history comment Active Medications Active Medications: Current Medications Generic Name Dose Route Start Last Admin Trade Name Freq PRN Reason Stop Dose Admin Lactated Ringer's 1,000 mls @ 15 mls/hr 04/30/25 06:30 IV .Q48H DIANNA PFSH Medical History Post-menopausal Anemia History of diverticulitis Gastric reflux Wears glasses Low iron Restless legs History of hiatal hernia History of IBS Non-smoker Leg cramps Hx of colonic polyps History of benign schwannoma Pancreatitis Hemorrhoid GERD (gastroesophageal reflux disease) Home Medications ?Medication ?Instructions ?Recorded ?Last Taken ?Type omeprazole magnesium 20 mg 20 mg PO QDAY GERD 03/26/25 Unknown History tablet,delayed release (Prilosec OTC) docusate sodium 100 mg capsule 100 mg PO DAILY 5 Unknown History (Colace) Allergy/AdvReac Type Severity Reaction Status Date / Time latex Allergy Mild rash Verified 04/26/25 10:15 Family History Mother Diabetes Thyroid disorder Breast cancer inher late 60's Grandfather Heart disease Maternal Cancer Paternal - Throat CA Father Heart disease Surgical History Hx of breast biopsy History of colonoscopy (~2011) History of cholecystectomy Social History Smoking Status: Never smoker Review of Systems (Anesthesia) ROS Narrative System reviewed and no additional complaints, except as documented.
--- NOTE | 2025-04-30 06:54 | PCM.HP.BLA ---
History and Physical Date of Admission: 04/30/25 Intake Vital Signs 11/17/2417:23 03/26/2509:11 Height 4 ft 11 in 4 ft 11 in Weight: 143 lb BMI 28.8 BP 121/82 H Blood Pressure Location Rt brachial Position Sitting Respiration 17 Pulse 88 Pulse Source Monitor Pulse Oximetry (%) 100 Oxygen Delivery Method room air Intake Visit Reasons: Gastroesophageal reflux disease (GERD) Chief Complaint: gerd Is patient in pain?: No Allergies latex Allergy (Mild, Verified 03/26/25 09:12) rash Medications ?Medication ?Instructions ?Recorded ?Confirmed ?Type omeprazole magnesium 20 mg 20 mg PO QDAY PRN 03/26/25 03/26/25 History tablet,delayed release (Prilosec OTC) Have you fallen in the past year?: No PFSH Medical History (Updated 03/26/25 @ 09:09 by Laura Magallanes) Wears glasses Low iron Restless legs History of hiatal hernia History of IBS Non-smoker Leg cramps Hx of colonic polyps History of benign schwannoma Pancreatitis Hemorrhoid GERD (gastroesophageal reflux disease) Surgical History History of colonoscopy (~2011) History of cholecystectomy Family History Mother Diabetes Thyroid disorder Breast cancer inher late 60's Grandfather Heart disease Maternal Cancer Paternal - Throat CA Father Heart disease Social History Smoking Status: Never smoker HPI HPI HPI: Patient is a 64-year-old female who comes in with GERD. She says that she was recently started on a PPI if this helped but she only took it for 2 weeks and now her symptoms have returned. She also says that she thinks she has a history of a hiatal hernia. She also has difficulty swallowing occasionally. ROS General General: No weight change, appetite, fatigue, colon cancer, breast cancer or weakness HEENT HEENT: Yes difficulty swallowing; No eye injury, eye surgery, swollen glands or hoarseness Endo Endocrine: No thyroid disease, diabetes mellitus, thyroid cancer, Hair loss, heat intolerance or cold intolerance Skin Skin: No rash or changing moles Musc Musculoskeletal: No back problems, arthritis, rheumatoid arthritis, gout or joint pain Cardio Cardiovascular: No murmur, pacemaker, heart disease, atrial fibrillation, high blood pressure, heart attack, heart stent, palpitations, shortness of breath with exertion or chest pain Psych Psychiatric: No depression, anxiety or hearing voices Resp Respiratory: No shortness of breath, No sleep apnea, No cough, No COPD, No asthma, No emphysema and No wheezing Gastro Gastrointestinal: No abdominal pain, No nausea or vomiting, Yes diarrhea, Yes constipation, No blood in stool, Yes acid reflux, No hemorrhoids, No ulcers, No gallbladder problem and No black,tarry stools Additional Details: h/o pancreatitis Rocky Hematologic: No blood thinners, No blood disorders, No bleeding, Yes anemia and No blood clots Neuro Neurologic: No system reviewed and no additional complaints, except as documented, No as per HPI, No abnormal gait, No abnormal hearing, No abnormal movements, No abnormal speech, No behavioral changes, No burning sensations, No confusion, No convulsions, No disequilibrium, No dizziness, No localized weakness, No frequent falls, No headache(s), No lack of coordination, No loss of vision, No memory loss, No numbness, No other visual disturbances, No radicular pain, No restless legs, No sensory deficit, No syncope, No tingling, No tremor(s), No weakness and No other Exam Const General: cooperative Orientation: alert and oriented x3 HENMT Head: normal to inspection Neck Neck: normal visual inspection and full ROM Chest Chest palpation & inspection: normal inspection of the chest Resp Effort & Inspection: normal respiratory effort Auscultation: clear to auscultation bilaterally Cardio Rate: regular rate Rhythm: regular rhythm GI Inspection: non-distended Palpation: soft and nontender Skin General: no rashes or lesions noted Neuro General: patient alert and patient oriented x3 Extrem General: full ROM Psych Appearance: grossly normal Mental Status: mental status grossly normal Assessment and Plan Assessment and Plan (1) Gastroesophageal reflux disease: Plan: The patient has GERD and difficulty swallowing. I discussed performing an EGD with possible dilation. We will also evaluate for a hiatal hernia. I briefly discussed fundoplication with her. We will discuss it further after her EGD. I explained endoscopy in detail to the patient. I explained the risks including but not limited to stroke or heart attack with anesthesia, perforation of the GI tract, bleeding, infection. I explained that any of these could necessitate further emergency surgery. The patient understands and all questions were answered sufficiently. The patient wishes to proceed with procedure. I discussed the increased risk of bleeding and perforation with dilation. Patient understands. Jacinto Mendoza MD Pager: [facility] [address] [place] [address] [address] [place] [address] Office: I have seen the patient and reviewed the H&P. There are no clinical changes
[2025-04-30] MEDS: Lactated Ringers 1,000 ML 15 ML IV (07:00)
--- NOTE | 2025-04-30 07:44 | OP.EGD_ITS ---
Patient Name: Bambi Lopez Procedure Date: 04/30/2025 7:12 AM Date of : 1960 Age: 64 Procedure: Upper GI endoscopy Indications: Dysphagia Providers: Jacinto Mendoza MD Referring MD: Jing Cooney Medicines: Propofol per Anesthesia Patient Profile: This is a 64 year old female. Refer to note in patient chart for documentation of history and physical. Complications: No immediate complications. Procedure: Pre-Anesthesia Assessment: - Prior to the procedure, a History and Physical was performed, and patient medications and allergies were reviewed. The patient's tolerance of previous anesthesia was also reviewed. The risks and benefits of the procedure and the sedation options and risks were discussed with the patient. All questions were answered, and informed consent was obtained. Prior Anticoagulants: The patient has taken no anticoagulant or antiplatelet agents. After reviewing the risks and benefits, the patient was deemed in satisfactory condition to undergo the procedure. After obtaining informed consent, the endoscope was passed under direct vision. Throughout the procedure, the patient's blood pressure, pulse, and oxygen saturations were monitored continuously. The Endoscope was introduced through the mouth, and advanced to the fourth part of duodenum. The upper GI endoscopy was accomplished without difficulty. The patient tolerated the procedure well. Scope In: 7:36:01 AM Scope Out: 7:37:48 AM Total Procedure Duration Time 0 hours 1 minute 47 seconds Findings: The esophagus was normal. The stomach was normal. The examined duodenum was normal. Impression: - Normal esophagus. - Normal stomach. - Normal examined duodenum. - No specimens collected. Recommendation: - Discharge patient to home. - Resume previous diet. - Continue present medications. - Return to my office in 2 weeks. Procedure Code(s): --- Professional --- 86658, Esophagogastroduodenoscopy, flexible, transoral; diagnostic, including collection of specimen(s) by brushing or washing, when performed (separate procedure) Diagnosis Code(s): --- Professional --- R13.10, Dysphagia, unspecified CPT copyright 2021 [employer]. All rights reserved. The codes documented in this report are preliminary and upon hooker machine tender review may be revised to meet current compliance requirements. Jacinto Mendoza MD 04/30/2025 7:43:47 AM This report has been signed electronically. Number of Addenda: 0 Note Initiated On: 04/30/2025 7:12 AM
--- NOTE | 2025-04-30 07:44 | OP.PROVAT_ITS ---
04/30/2025 Jing Cooney Re : Upper GI endoscopy procedure for Bambi Lopez Dear Jamil This procedure was performed on Wednesday, April 30, 2025. My impressions and recommendations are as follows: Impressions : - Normal esophagus. - Normal stomach. - Normal examined duodenum. - No specimens collected. Recommendations : - Discharge patient to home. - Resume previous diet. - Continue present medications. - Return to my office in 2 weeks. My findings are described in the full procedure note, which is enclosed. If I can be of further assistance, please feel free to contact me at Doctor phone number(s): , Work: . Sincerely, Jacinto Mendoza MD 04/30/2025 7:43:47 AM This report has been signed electronically.
--- NOTE | 2025-04-30 07:49 | PCM.POST.ANE ---
Anesthesia: Postop Eval I Current Vital Signs Temperature: 97.3 F Pulse Rate: 16 Blood Pressure: 104/71 Respiratory Rate: 16 Pulse Ox: 94 Oxygen Delivery Method: Room Air Assessment Airway patent: Yes Spontaneous unlabored respirations: Yes Mental status: Asleep nausea: No Vomiting: No Anesthesia Complication: No Fluid Hydration Crystalloid volume administer (ml): 400 Total IV fluid infused: 400 Progress Note Anesthesia document: Postop Eval 1 completed: Yes
--- NOTE | 2025-04-30 08:17 | PCM.POSTANE2 ---
Anesthesia Postop Eval I Sum Postop Eval Completion status Anesthesia document: Postop Eval 1 completed: Yes Anesthesia Postop Eval I Summary Anesthesia Postop Eval I Summary: Anesthesia Postop Eval I: Assessment Summary Airway patent Yes 04/30/25 07:49 [email or web address] Spontaneous unlabored Yes 04/30/25 07:49 [email or web address] respirations Mental status Asleep 04/30/25 07:49 [email or web address] nausea No 04/30/25 07:49 [email or web address] Vomiting No 04/30/25 07:49 [email or web address] Anesthesia Postop Eval I: Fluid Summary Crystalloid volume administer 400 04/30/25 07:49 [email or web address] (ml) Colloids volume administered ( ml) Blood Product volume administered (ml) Total IV fluid infused 400 04/30/25 07:49 [email or web address] Anesthesia Postop Eval I: Summary Notes Anesthesia Complication No 04/30/25 07:49 [email or web address] Anesthesia Complication Comment: Post-operative progress note Anesthesia: Postop Eval II Evaluation Mental status: Awake Pain Level: 0 nausea: No Vomiting: No
== END 2025-04-30 08:38 | disposition home or self-care (01) ==
LOC: EN 06:10 → AC 06:11
PROVIDERS: PCP Nurse Practitioner Family; Referring Provider Nurse Practitioner Family; Visit Provider Surgery
PROC: 0DJ08ZZ Inspection of Upper Intestinal Tract, Via Natural or Artificial Opening Endoscopic (ICD-10-PCS; CPT 43235; principal; 2025-04-30 07:25)
DX: K21.9 Gastro-esophageal reflux disease without esophagitis (principal); R13.10 Dysphagia, unspecified; Z86.0100 Personal history of colon polyps, unspecified; Z90.49 Acquired absence of other specified parts of digestive tract
CPT/HCPCS: 43235; J2405